=== PATIENT | female | born 2005 | race Caucasian/White ===

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

== ENCOUNTER → 2023-07-12 | Outpatient (CLI) | payer MEDICAID, SELFPAY ==
--- NOTE | 2023-07-12 15:42 | RAD_ITS ---
EXAM: XR LEFT TOES, 2 OR MORE VIEWS CLINICAL INDICATION: left middle toe injury TECHNIQUE: Frontal, lateral and oblique views of the toes of the left foot. COMPARISON: No relevant prior studies available. FINDINGS: BONES/JOINTS: There is a nondisplaced fracture of the proximal third phalanx. No dislocation. SOFT TISSUES: Unremarkable. No radiopaque foreign body. RAD/Toe(s) Min 2 Views IMPRESSION: Fracture of the proximal third phalanx. Electronically Signed: Teodoro Rivero MD at 16:29 EST ,
--- OUTSIDE RECORDS SUMMARY | 2023-07-12 17:40 | XMS RPT_ITS | CCD ---
Author Name Unknown Address [id number] [place] [address] Organization [facility] Care Team Providers Care 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 Name Role Phone (Gian), Wads Unavailable Rory Gaspar MD Unavailable Amparo Jang MD, Rory Primary Care Provider Rory Gaspar Primary Care Provider Jose Patel Unavailable Unavailable Primary Care Provider Unavailabl e Amparo Jang MD, Rory Unavailable Amparo Jang MD, Rory Primary Care Provider Rory Gaspar Primary Care Provider Jose Patel Unavailable (Gian), Wads Unavailable Rory Gaspar MD Unavailable Amparo Jang MD, Rory Primary Care Provider Rory Gaspar Primary Care Provider Jose Patel Unavailable JOSE PETERSON, DR RORY Lowery Primary Care Physician NICHOLAS ATKINS DO Attending Unavailable JOSE PETERSON, DR RORY Lowery Primary Care Hazel shah (Gian), Wads Unavailable Rory Gaspar MD Unavailable Rory Gaspar MD Primary Care Provider AMPARO SUHAIL, RORY Primary Care Unavailable JOSE PATEL Attending Unavailable JOSE PATEL Admitting Unavailable AMPARO SUHAIL, RORY Attending Unavailable AMPARO SUHAIL, RORY Referring Unavailable AMPARO SUHAIL, RORY Primary Care Unavailable AMPARO SUHAIL, RORY Attending Unavailable AMPARO SUHAIL, RORY Referring Unavailable AMPARO SUHAIL, RORY Primary Care Unavailable AMPARO SUHAIL, RORY Primary Care Unavailable AMPARO SUHAIL, RORY Referring Unavailable JESÚS FARRELL Attending Unavailable YIMI PATEL Referring Unavailable AMPARO SUHAIL, RORY Primary Care Unavailable YIMI PATEL Attending Unavailable AMPARO SUHAIL, RORY Primary Care Unavailable AMPARO SUHAIL, RORY Referring Unavailable JOSE PATEL Attending Unavailable AMPARO SUHAIL, RORY Primary Care Unavailable JOSE PATEL Referring Unavailable AMPARO SUHAIL, RORY Primary Care Unavailable FAINA ALVARADO Referring Unavailable FAINA ALVARADO Attending Unavailable AMPARO SUHAIL, RORY Primary Care Unavailable AMPARO SUHAIL, RORY Referring Unavailable FAINA ALVARADO Attending Unavailable AMPARO SUHAIL, RORY Primary Care Unavailable AMPARO SUHAIL, RORY Referring Unavailable JOSE PATEL Attending Unavailable AMPARO SUHAIL, RORY Primary Care Unavailable AMPARO SUHAIL, RORY Referring Unavailable CIRO FARMER Attending Unavailable AMPARO SUHAIL, RORY Primary Care Unavailable AMPARO SUHAIL, RORY Referring Unavailable JOSE PATEL Attending Unavailable REFERRED, SELF Referring Unavailable AMPARO SUHAIL, RORY Attending Unavailable AMPARO SUHAIL, RORY Primary Care Unavailable REFERRED, SELF Referring Unavailable AMPARO SUHAIL, RORY Attending Unavailable AMPARO SUHAIL, RORY Primary Care Unavailable REFERRED, SELF Referring Unavailable AMPARO SUHAIL, RORY Primary Care Unavailable JOSE PATEL Attending Unavailable REFERRED, SELF Referring Unavailable AMPARO SUHAIL, RORY Attending Unavailable AMPARO SUHAIL, RORY Primary Care Unavailable AMPARO SUHAIL, RORY Referring Unavailable AMPARO SUHAIL, RORY Primary Care Unavailable YIMI PATEL Attending Unavailable REFERRED, SELF Referring Unavailable AMPARO SUHAIL, RORY Attending Unavailable AMPARO SUHAIL, RORY Primary Care Unavailable REFERRED, SELF Referring Unavailable AMPARO SUHAIL, RORY Primary Care Unavailable YIMI PATEL Attending Unavailable MARTELL KATZ Attending Unavailable PATSY HERNANDEZ Referring Unavailable AMPARO SUHAIL, RORY Primary Care Unavailable AMPARO SUHAIL, RORY Primary Care Unavailable BRIA AREVALO Attending Unavailable BRIA AREVALO Referring Unavailable AMPARO SUHAIL, RORY Primary Care Unavailable AMPARO SUHAIL, RORY Primary Care Unavailable PATSY HERNANDEZ Attending Unavailable AMPARO SUHAIL, RORY Primary Care Unavailable CIRO FARMER (LACHELLE) (HIST) Referring Unava ilable AMPARO SUHAIL, RORY Primary Care Unavailable CIRO FARMER (PA) (HIST) Referring Unava ilable AMPARO SUHAIL, RORY Primary Care Unavailable AMPARO SUHAIL, RORY Primary Care Unavailable DHRUV PALACIOS Referring Unavailable LUDWIG BRYAN Attending Unavailable AMPARO SUHAIL, RORY Primary Care Unavailable MARY CARTER Attending Unava ilable AMPARO SUHAIL, RORY Primary Care Unavailable LUDWIG BRYAN Attending Unavailable AMPARO SUHAIL, RORY Primary Care Unavailable MARY CARTER Attending Unava ilable AMPARO SUHAIL, RORY Primary Care Unavailable AMPARO SUHAIL, RORY Primary Care Unavailable JAYLENE BAH Attending Unavailable AMPARO SUHAIL, RORY Primary Care Unavailable RACQUEL SCHMIDT Attending Unavailable AMPARO SUHAIL, RORY Primary Care Unavailable NUSRAT CRAMER Attending Unavailable AMPARO SUHAIL, RORY Primary Care Unavailable MARY CARTER Attending Unava ilable MARIOLA FIERRO Attending Unavaila ble AMPARO SUHAIL, RORY Primary Care Unavailable MINA SALGUERO Attending Unavailable AMPARO SUHAIL, RORY Primary Care Unavailable LUDWIG BRYAN Attending Unavailable AMPARO SUHAIL, RORY Primary Care Unavailable VÍCTOR GONZALES Attending Unavailable AMPARO SUHAIL, RORY Primary Care Unavailable Allergies Allergy Classification Reported Allergen(s) Allergy Type Date of Onset Reaction(s) Facility (8 sources) Amoxicillin; Translations: [AMOXICILLIN] Drug Allergy 03-20-2015 [facility] (11 sources) Penicillins; Translations: [PENICILLINS] Drug Allergy 04-19-[address] [facility] (10 sources) Penicillins Drug Allergy 04-19-[address] [facility] (1 source) Penicillin; Translations: [penicillin] Drug Allergy [facility] Medications Current Medications Medication Drug Class(es) Dates Sig (Normalized) Sig (Original) acetaminophen 325 mg oral tablet (6 sources) Start: 12-01-2021 take 2 tablets by mouth every six hours as needed for pain acetaminophen (TYLENOL) 325 MG tablet Take 2 Tablets (650 mg) by mouth every 6 hours as needed for Pain 0 12/01/2021 Active Completed/Discontinued Medications Medication Drug Class(es) Dates Sig (Normalized) Sig (Original) [id number] 200 actuat albuterol 0.09 mg/actuat metered dose inhaler (4 sources) beta2-Adrenergic Agonist Start: 10-22-2020 End: 12-01-2021 take 2 puff(s) by inhalation every four hours as needed for wheezing 2 Puff, Inhalation, EVERY 4 HOURS PRN, Starting on Tue11/30/21 at 1628, Until Tue12/01/21 at 1231, Shortness of Breath, Wheezing calcium chloride 0.001 meq/ml / glucose 50 mg/ml / potassium chloride 0.004 meq/ml / sodium chloride 0.103 meq/ml / sodium lactate 0.028 meq/ml injectable solution (1 source) Start: 11-30-2021 End: 12-01-2021 take 1 mL by mouth every hour CONTINUOUS, Intravenous, at 92 mL/hr, Starting on Tue11/30/21 at 1630, For 90 days Saline lock when tolerating adequate PO intake. calcium chloride 0.0014 meq/ml / potassium chloride 0.004 meq/ml / sodium chloride 0.103 meq/ml / sodium lactate 0.028 meq/ml injectable solution (1 source) Start: 11-30-2021 End: 11-30-2021 CONTINUOUS, Intravenous, at 92 mL/hr, Starting on Tue11/30/21 at 1530, For 90 days, PACU diphenhydrAMINE hydrochloride 25 mg oral capsule (9 sources) Histamine-1 Receptor Antagonist Start: 03-30-2021 take 25-50 mg by mouth every six hours as needed diphenhydrAMINE (BENADRYL) 25 mg capsule Take 1-2 capsules by mouth every 6 hours as needed for itching/rash. 15 capsule 0 03/30/2021 Active Problems Active Problems Problem Classification Problem Date Documented Da te Episodic/Chronic Anxiety disorders (7 sources) Generalized anxiety disorder; Translations: [Generalized anxiety disorder] Onset: 08-19-2020 08-19-2020 Chronic Conditions associated with dizziness or vertigo (1 source) Dizziness and giddiness; Translations: [Dizziness] Onset: 04-02-2023 Episodic Contraceptive and procreative management (2 sources) Oral contraception; Translations: [Encounter for surveillance of contraceptive pills] Episodic Fracture of lower limb (1 source) Nondisplaced fracture of proximal phalanx of left lesser toe(s), initial encounter for closed fracture; Translations: [Closed nondisplaced fracture of proximal phalanx of lesser toe of left foot, initial encounter] Onset: 06-28-2023 Episodic Genitourinary congenital anomalies (12 sources) Kidney disease; Translations: [Congenital malformation of kidney, unspecified] Onset: 04-07-2020 04-07-2020 Chronic Immunizations and screening for infectious disease (1 source) Suspected disease caused by 2019-nCoV; Translations: [Suspected COVID-19 virus infection] 02-09-2023 Episodic Menstrual disorders (1 source) Menstrual period late; Translations: [Irregular menstruation, unspecified] Chronic Miscellaneous mental health disorders (11 sources) Eating disorder; Translations: [Eating disorder, unspecified] Onset: 02-04-2022 Chronic Mood disorders (7 sources) Depressive disorder; Translations: [Major depressive disorder, single episode, unspecified] Onset: 10-22-2020 10-22-2020 Chronic Nonspecific chest pain (1 source) Chest pain, unspecified; Translations: [Chest pain, unspecified type] Onset: 04-02-2023 Episodic Other congenital anomalies (19 sources) Accessory right tarsal navicular bone; Translations: [Other congenital malformations of lower limb(s), including pelvic girdle] Onset: 03-21-2018 07-04-2018 Chronic Other connective tissue disease (1 source) Abnormal posture; Translations: [Abnormal posture] 01-20-2023 Episodic Other female genital disorders (1 source) Hypertrophy of labia; Translations: [Unspecified hypertrophy of vulva] Episodic Other gastrointestinal disorders (1 source) Acute constipation; Translations: [Constipation, unspecified] 04-07-2023 Episodic Other nutritional; endocrine; and metabolic disorders (12 sources) Childhood obesity; Translations: [Obesity, unspecified] Onset: 02-08-2018 05-17-2019 Chronic Syncope (1 source) Near syncope; Translations: [Syncope and collapse] Episodic Unclassified (1 source) Multiple Concerns Onset: 09-14-2022 Unclassified (1 source) Vaginal candidiasis; Translations: [Vaginal candidiasis] Onset: 06-11-2023 Unclassified (1 source) Physical Therapy Onset: 09-08-2022 Viral infection (2 sources) Viral disease; Translations: [Viral infection, unspecified] Onset: 04-14-2023 04-07-2023 Episodic Past or Other Problems Problem Classification Problem Date Documented Da te Episodic/Chronic Abdominal pain (20 sources) Generalized abdominal pain; Translations: [Generalized abdominal pain] Onset: 1 Resolved: 2 Episodic Asthma (7 sources) Exercise-induced asthma; Translations: [Exercise induced bronchospasm] Onset: 8 Resolved: 9 04-10-2019 Chronic Attention-deficit, conduct, and disruptive behavior disorders (7 sources) Disruptive behavior disorder; Translations: [Conduct disorder, unspecified] Onset: 0 Resolved: 8 08-06-2021 Chronic Attention-deficit, conduct, and disruptive behavior disorders (7 sources) Attention deficit hyperactivity disorder; Translations: [Attention-deficit hyperactivity disorder, unspecified type] Onset: 3 Resolved: 9 08-06-2021 Chronic Attention-deficit, conduct, and disruptive behavior disorders (7 sources) Oppositional defiant disorder; Translations: [Oppositional defiant disorder] Onset: 3 Resolved: 8 08-06-2021 Chronic Biliary tract disease (6 sources) Biliary dyskinesia; Translations: [Other specified diseases of gallbladder] Onset: 2 Episodic E Codes: Natural/environment (1 source) Bitten or stung by nonvenomous insect and other nonvenomous arthropods, initial encounter; Translations: [Tick bite of abdominal wall, initial encounter] Onset: 3 Episodic Esophageal disorders (7 sources) Gastroesophageal reflux disease; Translations: [Gastro-esophageal reflux disease without esophagitis] Onset: 1 Resolved: 5 08-13-2014 Chronic Gastritis and duodenitis (1 source) Acute gastritis without bleeding; Translations: [Acute gastritis without hemorrhage, unspecified gastritis type] Onset: 3 Episodic Genitourinary symptoms and ill-defined conditions (8 sources) Microscopic hematuria; Translations: [Other microscopic hematuria] Onset: 3 Resolved: 6 08-06-2021 Episodic Headache; including migraine (1 source) Headache disorder; Translations: [Headache disorder] Onset: 3 Episodic Inflammatory diseases of female pelvic organs (1 source) Acute vaginitis; Translations: [Acute vaginitis] Onset: 3 Episodic Joint disorders and dislocations; trauma-related (11 sources) Dislocation of patellofemoral joint; Translations: [Unspecified dislocation of left patella, initial encounter] Onset: 2 Episodic Malaise and fatigue (3 sources) Malaise and fatigue; Translations: [Other malaise] Onset: 3 02-08-2023 Episodic Nausea and vomiting (10 sources) Nausea and vomiting; Translations: [Nausea with vomiting, unspecified] Onset: 2 Resolved: 2 09-03-2021 Episodic Other congenital anomalies (7 sources) Accessory left tarsal navicular bone; Translations: [Other congenital malformations of lower limb(s), including pelvic girdle] Onset: 6 Resolved: 8 03-21-2018 Chronic Other connective tissue disease (7 sources) Muscle weakness; Translations: [Other symptoms and signs involving the musculoskeletal system] Onset: 3 Episodic Other eye disorders (1 source) Ocular pain, left eye; Translations: [Left eye pain] Onset: 3 Episodic Other gastrointestinal disorders (20 sources) Constipation; Translations: [Constipation, unspecified] Onset: 2 Resolved: 1 08-06-2021 Episodic Other nervous system disorders (7 sources) Abnormal gait; Translations: [Unspecified abnormalities of gait and mobility] Onset: 3 Episodic Other non-traumatic joint disorders (8 sources) Pain in left knee; Translations: [Pain in joint, lower leg] Onset: 3 Episodic Other nutritional; endocrine; and metabolic disorders (8 sources) Weight loss; Translations: [Abnormal weight loss] Onset: 2 Resolved: 2 09-03-2021 Episodic Other nutritional; endocrine; and metabolic disorders (7 sources) Childhood obesity; Translations: [Body mass index (BMI) pediatric, greater than or equal to 95th percentile for age] Onset: 8 Resolved: 2 06-30-2021 Episodic Other screening for suspected conditions (not mental disorders or infectious disease) (1 source) Encounter for test, result negative; Translations: [Negative test] Onset: 3 Episodic Other skin disorders (19 sources) Keratosis pilaris; Translations: [Other specified epidermal thickening] Onset: 9 07-04-2018 Episodic Other skin disorders (1 source) Rash and other nonspecific skin eruption; Translations: [Rash] Onset: 3 Episodic Other upper respiratory infections (4 sources) Acute pharyngitis; Translations: [Acute pharyngitis, unspecified] Onset: 3 Episodic Residual codes; unclassified (7 sources) History of arthroscopy of knee joint; Translations: [Other specified postprocedural states] Onset: 3 Episodic Skin and subcutaneous tissue infections (1 source) Cutaneous abscess of groin; Translations: [Abscess of groin] Onset: 3 Episodic Spondylosis; intervertebral disc disorders; other back problems (7 sources) Lumbosacral spondylosis without myelopathy; Translations: [Spondylosis without myelopathy or radiculopathy, lumbosacral region] Onset: 1 Resolved: 5 08-13-2014 Chronic Sprains and strains (3 sources) Sprain of unspecified ligament of left ankle, initial encounter; Translations: [Sprain of unspecified ligament of unspecified ankle, initial encounter] Onset: 3 Episodic Superficial injury; contusion (2 sources) Insect bite (nonvenomous) of abdominal wall, initial encounter; Translations: [Injury of conjunctiva and corneal abrasion without foreign body, left eye, initial encounter] Onset: 3 Episodic Results Test Name Value Interpretation Reference Range Facil ity Vital Signs Date Time Vital Sign Value Performing Clinician Facility 04-06-2023 16:05-0400 Body height 167.6 cm Martell Katz DO Work Phone: [facility] 04-06-2023 16:05-0400 Body temperature 98.49 [degF] Martell Paulinoan DO Work Phone: [facility] 04-06-2023 16:05-0400 Body weight 72.58 kg Martell Paulinoan DO Work Phone: [facility] 04-06-2023 16:05-0400 Diastolic blood pressure 70 mm[Hg] Martell Paulinoan DO Work Phone: [facility] 04-06-2023 16:05-0400 Heart rate 85 /min Martell Paulinoan DO Work Phone: [facility] 04-06-2023 16:05-0400 Respiratory rate 18 /min Martell Paulinoan DO Work Phone: [facility] 04-06-2023 16:05-0400 SaO2% (BldA) [Mass fraction] 96 % Martell Paulinoan DO Work Phone: [facility] 04-06-2023 16:05-0400 Systolic blood pressure 103 mm[Hg] Martell Paulinoan DO Work Phone: [facility] 02-08-2023 18:26-0400 Body temperature 99.19 [degF] Dhruv Palacios FAMILY CONSUMER SCIENCE FCS TEACHER.AUDITOR SUPERVISOR Work Phone: [facility] 02-08-2023 18:26-0400 Body weight 69.94 kg Dhrvu Palacios FAMILY CONSUMER SCIENCE FCS TEACHER.AUDITOR SUPERVISOR Work Phone: [facility] 02-08-2023 18:26-0400 Diastolic blood pressure 82 mm[Hg] Dhruv Palacios FAMILY CONSUMER SCIENCE FCS TEACHER.AUDITOR SUPERVISOR Work Phone: [facility] 02-08-2023 18:26-0400 Heart rate 102 /min Dhruv Palacios FAMILY CONSUMER SCIENCE FCS TEACHER.AUDITOR SUPERVISOR Work Phone: [facility] 02-08-2023 18:26-0400 Respiratory rate 18 /min Dhruv Palacios FAMILY CONSUMER SCIENCE FCS TEACHER.AUDITOR SUPERVISOR Work Phone: [facility] 02-08-2023 18:26-0400 SaO2% (BldA) [Mass fraction] 98 % Dhruv Palacios FAMILY CONSUMER SCIENCE FCS TEACHER.AUDITOR SUPERVISOR Work Phone: [facility] 02-08-2023 18:26-0400 Systolic blood pressure 128 mm[Hg] Dhruv Palacios FAMILY CONSUMER SCIENCE FCS TEACHER.AUDITOR SUPERVISOR Work Phone: [facility] 10-02-2022 00:54-0400 Body height 167.6 cm NICHOLASPAYAM ATKINS DO [facility] 10-02-2022 00:54-0400 Body temperature 98.24 [degF] NICHOLASPAYAM VASQUEZKA DO [facility] 10-02-2022 00:54-0400 Body weight 59.1 kg NICHOLAS VASQUEZKA DO [facility] 10-02-2022 00:54-0400 Diastolic Blood Pressure Non-Invasive 76 1 NICHOLAS VASQUEZKA DO [facility] 10-02-2022 00:54-0400 Heart rate 60 /min NICHOLAS VASQUEZKA DO [facility] 10-02-2022 00:54-0400 Height ZScore 0.67 NICHOLAS VASQUEZKA DO [facility] Encounters Encounter Date Encounter Type Care Provider Facility Start: 06-28-2023 End: 06-29-2023 Emergency department patient visit LUDWIG BRYAN Facility:[facility] Start: 06-11-2023 End: 06-11-2023 Emergency department patient visit LUDWIG BRYAN Facility:[facility] Start: 04-14-2023 End: 04-14-2023 Emergency department patient visit MINA SALGUERO Facility:[facility] Start: 04-06-2023 End: 04-07-2023 ambulatory MARTELL KATZ Facility:[facility] Start: 04-06-2023 End: 04-07-2023 Office outpatient visit 25 minutes Martell Katz DO Work Phone: [facility] Procedures Date Procedure Procedure Detail Performing Clinician Start: 02-15-2023 End: 02-15-2023 Us abdominal real time w/image documentation Rory Jang MD Work Phone: Start: 02-15-2023 Us pelvic nonobstetr ic real-time image complete Rory Jang MD Work Phone: Start: 02-08-2023 COVID & INFLUENZA A/ B & RSV NAAT, ROUTINE Dhruv Palacios FAMILY CONSUMER SCIENCE FCS TEACHER.AUDITOR SUPERVISOR Work Phone: Start: 02-08-2023 Iadna respiratry pro be & rev trnscr 3-5 targets Dhruv Palacios FAMILY CONSUMER SCIENCE FCS TEACHER.AUDITOR SUPERVISOR Work Phone: Start: 02-08-2023 Sars-cov-2 detection by dna/rna Dhruv Palacios FAMILY CONSUMER SCIENCE FCS TEACHER.AUDITOR SUPERVISOR Work Phone: Start: 11-30-2021 End: 11-30-2021 ENDOSCOPY (UPPER AND COLONOSCOPY) Jose Daniel Escalante DO Work Phone: Start: 11-30-2021 End: 11-30-2021 LAPAROSCOPIC CHOLECYSTECTOMY WITH CHOLANGIOGRAM Murali Aguilar MD Work Phone: Start: 11-22-2021 Basic metabolic pane l calcium total Doc Go MD Work Phone: Start: 11-22-2021 Hepatic function panel Doc Go MD Work Phone: Start: 11-22-2021 Ecg routine ecg w/le ast 12 lds w/i&r Doc Go MD Work Phone: Start: 10-05-2021 Hepatobil syst imag inc gb w/pharma intervenj [facility] Provider Start: 09-22-2021 End: 09-22-2021 Us abdominal real time w/image documentation Lisa Schmid FAMILY CONSUMER SCIENCE FCS TEACHER-AUDITOR SUPERVISOR Work Phone: Plan of Treatment Date Care Activity Detail Author Start: 02-22-2032 Tetanus Diphtheria a nd Pertussis Vaccines (5 - Td or Tdap) Tetanus Diphtheria and Pertussis Vaccines (5 - Td or Tdap) [facility] Start: 02-22-2032 Tetanus Diphtheria a nd Pertussis Vaccines (8 - Td or Tdap) Tetanus Diphtheria and Pertussis Vaccines (8 - Td or Tdap) [facility] Start: 02-22-2032 Urine microalbumin profile [facility] Start: 03-20-2025 DTaP/Tdap/Td vaccine (7 - Td or Tdap) DTaP/Tdap/Td vaccine (7 - Td or Tdap) [facility] Start: 03-20-2025 Tetanus Diphtheria a nd Pertussis Vaccines (7 - Td or Tdap) Tetanus Diphtheria and Pertussis Vaccines (7 - Td or Tdap) [facility] Start: 04-14-2023 Well Visit Well Visit [facility] Start: 02-25-2023 FLU (#1) FLU (#1) [facility] Start: 02-25-2023 Influenza vaccination [facility] Start: 02-08-2023 End: 04-10-2023 Borrelia burgdorferi IgG and IgM panel - Serum LYME AB LATE >30 DAYS SYMPTOMS Lab Routine Malaise and fatigue Expected: 02/08/2023, Expires: 04/10/2023 [facility] Work Phone: Immunizations Immunization Date Immunization Notes Care Provider Sergio cha 03-17-2022 Human Papillomavirus 9-valent vaccine Faina Alvarado MD Work Phone: [facility] 03-17-2022 influenza, injectabl e, quadrivalent, preservative free Faina Alvarado MD Work Phone: [facility] 03-17-2022 influenza virus vacc ine, unspecified formulation Martell Katz DO Work Phone: [facility] 02-21-2022 tetanus toxoid, redu gaston diphtheria toxoid, and acellular pertussis vaccine, adsorbed Kandi Luther MD Work Phone: [facility] 05-16-2021 influenza, injectabl e, quadrivalent, preservative free Lisa Keilin FAMILY CONSUMER SCIENCE FCS TEACHER-AUDITOR SUPERVISOR Work Phone: [facility] 03-25-2021 Human Papillomavirus 9-valent vaccine Lisa Keilin FAMILY CONSUMER SCIENCE FCS TEACHER-AUDITOR SUPERVISOR Work Phone: [facility] 10-22-2020 Human Papillomavirus 9-valent vaccine Lisa Keilin FAMILY CONSUMER SCIENCE FCS TEACHER-AUDITOR SUPERVISOR Work Phone: [facility] 10-22-2020 meningococcal polysaccharide (groups A, C, Y and W-135) diphtheria toxoid conjugate vaccine (MCV4P) Lisa Keilin FAMILY CONSUMER SCIENCE FCS TEACHER-AUDITOR SUPERVISOR Work Phone: [facility] 04-04-2020 influenza, injectabl e, quadrivalent, preservative free Lisa Keilin FAMILY CONSUMER SCIENCE FCS TEACHER-AUDITOR SUPERVISOR Work Phone: [facility] 04-10-2019 influenza, injectabl e, quadrivalent, preservative free Lisa Keilin FAMILY CONSUMER SCIENCE FCS TEACHER-AUDITOR SUPERVISOR Work Phone: [facility] 04-15-2018 influenza, injectabl e, quadrivalent, preservative free Lisa Keilin FAMILY CONSUMER SCIENCE FCS TEACHER-AUDITOR SUPERVISOR Work Phone: [facility] 04-27-2017 influenza, injectabl e, quadrivalent, preservative free Lisa Keilin FAMILY CONSUMER SCIENCE FCS TEACHER-AUDITOR SUPERVISOR Work Phone: [facility] 05-07-2016 influenza, injectabl e, quadrivalent, preservative free Lisa Keilin FAMILY CONSUMER SCIENCE FCS TEACHER-AUDITOR SUPERVISOR Work Phone: [facility] 05-07-2016 influenza, injectable,quadrivalent, preservative free, pediatric Lisa Keilin FAMILY CONSUMER SCIENCE FCS TEACHER-AUDITOR SUPERVISOR Work Phone: [facility] 03-20-2015 influenza, injectabl e, quadrivalent, preservative free Lisa Keilin FAMILY CONSUMER SCIENCE FCS TEACHER-AUDITOR SUPERVISOR Work Phone: [facility] [facility] 03-20-2015 influenza, seasonal, injectable Lisa Keilin FAMILY CONSUMER SCIENCE [employer] TEACHER-[facility] Work Phone: [facility] 03-20-2015 meningococcal polysaccharide (groups A, C, Y and W-135) diphtheria toxoid conjugate vaccine (MCV4P) Lisa Schmid FAMILY CONSUMER SCIENCE FCS TEACHER-[facility] Work Phone: [facility] 03-20-2015 tetanus toxoid, redu gaston diphtheria toxoid, and acellular pertussis vaccine, adsorbed [facility] Work Phone: [facility] 05-09-2014 influenza, injectabl e, quadrivalent, preservative free [facility] Work Phone: [facility] 05-09-2014 influenza, seasonal, injectable [facility] Work Phone: [facility] 05-12-2013 influenza, injectabl e, quadrivalent, preservative free [facility] Work Phone: [facility] 04-27-2012 influenza virus vacc ine, split virus (incl. purified surface antigen) [facility] Work Phone: [facility] 04-27-2012 influenza, seasonal, injectable, preservative free [facility] FAMILY CONSUMER SCIENCE FCS TEACHER-[facility] Work Phone: [facility] 04-14-2011 influenza virus vacc ine, split virus (incl. purified surface antigen) [facility] Work Phone: [facility] 04-14-2011 influenza, seasonal, injectable, preservative free [facility] Work Phone: [facility] 05-12-2010 influenza virus vacc ine, split virus (incl. purified surface antigen) [facility] Work Phone: [facility] 05-12-2010 influenza, seasonal, injectable, preservative free [facility] Work Phone: [facility] 08-25-2009 novel influenza-H1N1 -09, preservative-free, injectable Lisa Schmid FAMILY CONSUMER SCIENCE FCS TEACHER-AUDITOR SUPERVISOR Work Phone: [facility] 06-17-2009 novel influenza-H1N1 -09, preservative-free, injectable Lisa Binu FAMILY CONSUMER SCIENCE FCS TEACHER-AUDITOR SUPERVISOR Work Phone: [facility] 03-24-2009 influenza, seasonal, injectable, preservative free Lisa Schmid FAMILY CONSUMER SCIENCE FCS TEACHER-AUDITOR SUPERVISOR Work Phone: [facility] 08-27-2008 diphtheria, tetanus toxoids and acellular pertussis vaccine Lisa Pericoilin FAMILY CONSUMER SCIENCE FCS TEACHER-AUDITOR SUPERVISOR Work Phone: [facility] 08-27-2008 diphtheria, tetanus toxoids and acellular pertussis vaccine, unspecified formulation Lisa Binu FAMILY CONSUMER SCIENCE FCS TEACHER-AUDITOR SUPERVISOR Work Phone: [facility] 08-27-2008 measles, mumps and rubella virus vaccine Lisa Pericoilin FAMILY CONSUMER SCIENCE FCS TEACHER-AUDITOR SUPERVISOR Work Phone: [facility] 08-27-2008 poliovirus vaccine, inactivated Lisa Schmid FAMILY CONSUMER SCIENCE FCS TEACHER-AUDITOR SUPERVISOR Work Phone: [facility] 08-27-2008 varicella virus vaccine Lisa Binu FAMILY CONSUMER SCIENCE FCS TEACHER-AUDITOR SUPERVISOR Work Phone: [facility] 05-14-2008 influenza virus vacc ine, unspecified formulation Lisa Schmid FAMILY CONSUMER SCIENCE FCS TEACHER-AUDITOR SUPERVISOR Work Phone: [facility] 05-14-2008 influenza virus vacc ine, whole virus Lisa Pericoilin FAMILY CONSUMER SCIENCE FCS TEACHER-AUDITOR SUPERVISOR Work Phone: [facility] 04-20-2007 influenza virus vacc ine, whole virus Lisa Pericoilin FAMILY CONSUMER SCIENCE FCS TEACHER-AUDITOR SUPERVISOR Work Phone: [facility] 04-03-2007 hepatitis A vaccine, pediatric/adolescent dosage, 2 dose schedule Lisa Pericoilin FAMILY CONSUMER SCIENCE FCS TEACHER-AUDITOR SUPERVISOR Work Phone: [facility] 09-21-2006 hepatitis A vaccine, pediatric/adolescent dosage, 2 dose schedule Lisa Pericoilin FAMILY CONSUMER SCIENCE FCS TEACHER-AUDITOR SUPERVISOR Work Phone: [facility] 05-07-2005 influenza virus vacc ine, unspecified formulation Lisa Schmid [facility] Work Phone: [facility] 05-07-2005 influenza virus vacc ine, whole virus Lisa marietta [facility] Work Phone: [facility] 12-08-2004 diphtheria, tetanus toxoids and acellular pertussis vaccine Lisa Schmid [facility] Work Phone: [facility] 12-08-2004 diphtheria, tetanus toxoids and acellular pertussis vaccine, unspecified formulation [facility] Work Phone: [facility] 12-08-2004 haemophilus influenz ae type b vaccine, PRP-T conjugate [facility] Work Phone: [facility] 12-08-2004 pneumococcal conjuga te vaccine, 7 valent [facility] 10-07-2004 measles, mumps and rubella virus vaccine Lisamolly Schmid [facility] Work Phone: [facility] 10-07-2004 varicella virus vaccine Lisa Schmid [facility] Work Phone: [facility] 06-22-2004 influenza virus vacc ine, unspecified formulation [facility] Work [facility]: [facility] 06-22-2004 influenza virus vacc ine, whole virus [facility] Work Phone: [facility] 06-22-2004 poliovirus vaccine, inactivated [facility] Work Phone: [facility] 04-16-2004 influenza virus vacc ine, unspecified formulation [facility] Work Phone: [facility] 04-16-2004 influenza virus vacc ine, whole virus [facility] Work [facility]: [facility] 03-18-2004 diphtheria, tetanus toxoids and acellular pertussis vaccine Lisa Schmid [facility] Work Phone: [facility] 03-18-2004 haemophilus influenz ae type b conjugate and Hepatitis B vaccine [facility] Work Phone: [facility] 03-18-2004 pneumococcal conjuga te vaccine, 7 valent [facility] Work Phone: [facility] 01-20-2004 diphtheria, tetanus toxoids and acellular pertussis vaccine Lisa [facility] Work Phone: [facility] 01-20-2004 diphtheria, tetanus toxoids and acellular pertussis vaccine, unspecified formulation [facility] Work Phone: [facility] 01-20-2004 haemophilus influenz ae type b conjugate and Hepatitis B vaccine [facility] Work Phone: [facility] 01-20-2004 haemophilus influenz ae type b vaccine, conjugate unspecified formulation [facility] Work Phone: [facility] 01-20-2004 hepatitis B vaccine, pediatric or pediatric/adolescent dosage [facility] Work [facility]: [facility] 01-20-2004 pneumococcal conjuga te vaccine, 7 valent Lisa [facility] Work Phone: [facility] 01-20-2004 poliovirus vaccine, inactivated [facility] Work Phone: [facility] 01-20-2004 poliovirus vaccine, unspecified formulation [facility] Work Phone: [facility] 2003 diphtheria, tetanus toxoids and acellular pertussis vaccine [facility] Work Phone: [facility] 2003 diphtheria, tetanus toxoids and acellular pertussis vaccine, unspecified formulation Lisa Schmid [employer]ILY CONSUMER SCIENCE [employer] TEACHER-[facility] Work Phone: [facility] 2003 haemophilus influenz ae type b vaccine, conjugate unspecified formulation Lisa Schmid FAMILY CONSUMER SCIENCE FCS TEACHERBringShare[facility] Work Phone: [facility] 2003 haemophilus influenz ae type b vaccine, PRP-T conjugate Lisa Schmid [employer]ILY CONSUMER SCIENCE FCS TEACHERBring[facility] Work Phone: [facility] 2003 hepatitis B vaccine, pediatric or pediatric/adolescent dosage Lisa Schmid FAMILY CONSUMER SCIENCE FCS TEACH[facility] Work Phone: [facility] 2003 pneumococcal conjuga te vaccine, 7 valent Lisa Schmid FAMILY CONSUMER SCIENCE FCS TEACH[facility] Work Phone: [facility] 2003 poliovirus vaccine, inactivated Lisa Schmid FAMILY CONSUMER SCIENCE FCS TEACHERBringShare[facility] Work Phone: [facility] 2003 poliovirus vaccine, unspecified formulation Lisa Schmid [facility] Work Phone: [facility] Payers Date Payer Category Payer Unknown [id number] 2014 Medicaid [facility] [id number] 2014-Present [phone] [address] [place] [address] Medicaid [id number] 2014 Medicaid [id number] 2014 Unknown [id number] 2013 Unknown [id number]. [id number] 2003 Unknown [id number] [id number] 2003 Unknown [id number] [id number] 2003 Unknown [id number] [id number] 2003 Unknown [id number] 2.16.840.1.195571.3.579.2479 2003 Unknown [id number] [id number] 2003 Unknown [id number] [id number] 2003 Unknown [id number] 2.16.840.1.012974.3.579.247 2003 Unknown [id number] 2.16.840.1.488009.3.579.247 2003 Unknown [id number] [id number] 2003 Unknown [id number] 2.16.840.1.587975.3.579.247 2003 Unknown [id number] 2.16.840.1.664159.3.579.247 2003 Unknown [id number] 2.16.840.1.448284.3.579.247 2003 Unknown [id number] 2.16.840.1.164653.3.579.247 2003 Unknown [id number] 2.16.840.1.523332.3.579.247 2003 Unknown [id number] 2.16.840.1.140578.3.579.247 2003 Unknown [id number] 2.16.840.1.912723.3.579.2479 2003 Unknown [id number] [id number] 2003 Unknown [id number] [id number] 2003 Unknown [id number] [id number] 2003 Unknown [id number] [id number] 2003 Unknown [id number] [id number] Social History Date Type Detail Facility Start: 04-10-2019 End: 02-04-2022 Tobacco smoking status NHIS Never smoked tobacco [facility] Start: 04-10-2019 End: 02-04-2022 Tobacco use and exposure Smokeless tobacco non-user [facility] Start: 08-08-2012 End: 03-17-2022 Tobacco Comment outside smokers [facility] Start: 2003 Sex Assigned At Not on file A [facility] Start: 09-12-2021 End: 05-17-2022 Exposure to SARS-CoV-2 (event) Not sure [facility] Start: 09-02-2021 End: 04-06-2023 Alcohol intake Current non-drinker of alcohol (finding) [facility] Start: 11-23-2021 Alcohol intake Lifetime non-d viktoria (finding) [facility] Work Phone: Start: 11-22-2021 History SDOH Alcohol Frequency 1 [facility] Work Phone: Start: 04-10-2019 End: 11-13-2022 Cigarette pack-years [facility] Work Phone: Sex Assigned At Female [facility] Start: 11-13-2022 End: 01-10-2023 Tobacco use panel [facility] Work Phone: National Score (1-10 0), lower number is lower risk 50 [facility] Work Phone: Medical Equipment Procedure Code Equipment Code Equipment Origin al Text Equipment Identifier Dates [facility] Suturet[facility] [id number] Start: 04-13-2016 [facility] [employer] [id number] Start: 03-28-2018 Debbie salvador Frzn 20cm [id number] Start: 06-08-2022 Arth Mpfl Tightr ope [facility] [id number] Start: 06-08-2022 Goals Date Patient Goal Desired Activity /State Personal health goal Functional Status Date Assessment Result Facility 10-02-2022 Functional Status Ambulating in cervantes, Ambulating in room, Awake, Bathroom privileges [facility] 10-02-2022 Functional Status Standard Safet y ID band on, Allergy Band on, Call device within reach, Bed in low position, Wheels locked, Upper/Half-Length side-rails up, personal items within reach, Visitor at bedside [facility] Mental Status Date Assessment Result Facility 10-02-2022 Mental Status Orientation Oriented x 4 [facility] 10-02-2022 Mental Status [facility] Clinical Notes 10-05-2021 to 04-09-2023 Martell Katz, - 04/06/2023 4:25 PM EDTPatient Dhruv Brice APRN.AUDITOR SUPERVISOR - 02/08/2023 6:31 PM EDTTelephone Encounter - Bria Arevalo APRN.AUDITOR SUPERVISOR - 11/23/2022 5:23 PM EDT Note Date & Type Note Facility 04-09-2023 Note HNO ID: [id number] Author: Note, Interface Service: ? Author Type: ? Type: Progress Notes Filed: 04/09/2023 5:29 AM Note Text: Epic Scheduled Downtime: 04/09/2023 1:00:00 AM to 04/09/2023 1:28:00 AM [facility] 04-09-2023 Note HNO ID: [id number] Author: Note, Interface Service: ? Author Type: ? Type: Progress Notes Filed: 04/09/2023 2:58 AM Note Text: Epic Scheduled Downtime: 04/09/2023 1:00:00 AM to 04/09/2023 1:28:00 AM [facility] 04-06-2023 Note HNO ID: [id number] Author: Martell Katz, DO Service: ? Author Type: Physician Type: Progress Notes Filed: 04/07/2023 11:20 AM Note Text: 17 year old female presenting for multiple symptoms I have fully reviewed the past medical, surgical, social and family history and updated the Histories section of [facility]. Sore throat headache rhinorrhea sneezing constipation couple days abdominal discomfort cough no fever has been occurring for approximately 1 to 2 weeks, has been in the emergency department numerous times for this. Viral testing neg in ED Multiple symptoms Uri symptoms Constipation Current Outpatient Medications on File Prior to Visit: Current Outpatient Medications Medication Sig Dispense Refill norgestimate 0.25 mg-ethinyl estradiol 35 mcg (MONO-LINYAH) 0.25-35 mg-mcg per tablet TAKE 1 TABLET BY MOUTH ONCE DAILY FOR CONTINUOUS USE * SKIP PLACEBO PILLS FOR FOUR PACKS, TAKING ONLY ACTIVE PILLS 28 tablet 0 norgestimate 0.25 mg-ethinyl estradiol 35 mcg (MONO-LINYAH) 0.25-35 mg-mcg per tablet TAKE 1 TABLET BY MOUTH ONCE DAILY FOR CONTINUOUS USE * SKIP PLACEBO PILLS FOR FOUR PACKS, TAKING ONLY ACTIVE PILLS 84 tablet 3 ondansetron orally disintegrating (ZOFRAN ODT) 4 mg disintegrating tablet Take 4 mg by mouth every 8 hours as needed. venlafaxine (EFFEXOR) 37.5 mg tablet Take 37.5 mg by mouth every other day. No current facility-administered medications for this visit. ALLERGIES Allergen Reactions Penicillins Hives, Swelling PAST SURGICAL HISTORY Procedure Laterality Date ADENOIDECTOMY HX CHOLECYSTECTOMY HX LAPAROSCOPY SURG CHOLECYSTECTOMY 11/30/2021 ORTHOPEDIC SURGERY HX Left foot TONSILLECTOMY HX Social history reviewed in [facility]. REVIEW OF SYSTEMS: Per hpi PHYSICAL EXAMINATION: General appearance: Well appearing, alert, in no acute distress, well-hydrated, well nourished. Skin: no suspicious rashes or lesions Head: Normocephalic, atraumatic Eyes: Anicteric sclera. Pupils are equally round and reactive to light. Extraocular movements are intact. Ears: External ears normal, canals clear Nose/Sinuses: Nares normal, septum midline, mucosa normal, Oropharynx: Lips, mucosa, and tongue normal, good dentition, no pharyngeal erythema or exudates Neck: Supple, no adenopathy Lungs: Lungs clear to auscultation. No wheezing, rhonchi, rales. Heart: RRR without murmur, gallop, or rubs. Abdomen: Normal abdominal exam, Abdomen soft, non-tender. No masses Extremities: No deformities, no edema, no cyanosis. Musculoskeletal: No joint swelling, no deformity Neuro: Gait normal. Speech intact ASSESSMENT/PLAN: 1. Acute constipation - ICD9: 564.00, ICD10: K59.00 (primary diagnosis) Can trial miralax Follow up if persists 2. Viral syndrome - ICD9: 079.99, ICD10: B34.9 - Discussed viral etiology and rationale for treatment. - Symptomatic treatment with prn analgesia - Supportive care with fluids and rest Normal exam Discussed with patient red flag symptoms. Discussed risks and benefits of treatment plan. Pt understands to seek appropriate evaluation for new or worsening symptoms. Patient understands and agrees with plan, all concerns and questions addressed. [facility] 04-06-2023 History of Presen t illness Narrative 17 year old female presenting for multiple symptoms I have fully reviewed the past medical, surgical, social and family history and [facility] Sore throat headache rhinorrhea sneezing constipation couple days abdominal discomfort cough no fever has been occurring for approximately 1 to 2 weeks, has been in the emergency department numerous times for this. Viral testing neg in ED Multiple symptoms Uri symptoms Constipation Current Outpatient Medications on File Prior to Visit: Current Outpatient Medications Medication Sig Dispense Refill norgestimate 0.25 mg-ethinyl estradiol 35 mcg (MONO-LINYAH) 0.25-35 mg-mcg per tablet TAKE 1 TABLET BY MOUTH ONCE DAILY FOR CONTINUOUS USE * SKIP PLACEBO PILLS FOR FOUR PACKS, TAKING ONLY ACTIVE PILLS 28 tablet 0 norgestimate 0.25 mg-ethinyl estradiol 35 mcg (MONO-LINYAH) 0.25-35 mg-mcg per tablet TAKE 1 TABLET BY MOUTH ONCE DAILY FOR CONTINUOUS USE * SKIP PLACEBO PILLS FOR FOUR PACKS, TAKING ONLY ACTIVE PILLS 84 tablet 3 ondansetron orally disintegrating (ZOFRAN ODT) 4 mg disintegrating tablet Take 4 mg by mouth every 8 hours as needed. venlafaxine (EFFEXOR) 37.5 mg tablet Take 37.5 mg by mouth every other day. No current facility-administered medications for this visit. ALLERGIES Allergen Reactions Penicillins Hives, Swelling PAST SURGICAL HISTORY Procedure Laterality Date ADENOIDECTOMY HX CHOLECYSTECTOMY HX LAPAROSCOPY SURG CHOLECYSTECTOMY 11/30/2021 ORTHOPEDIC SURGERY HX Left foot TONSILLECTOMY HX Social history reviewed in epic. REVIEW OF SYSTEMS: Per hpi PHYSICAL EXAMINATION: General appearance: Well appearing, alert, in no acute distress, well-hydrated, well nourished. Skin: no suspicious rashes or lesions Head: Normocephalic, atraumatic Eyes: Anicteric sclera. Pupils are equally round and reactive to light. Extraocular movements are intact. Ears: External ears normal, canals clear Nose/Sinuses: Nares normal, septum midline, mucosa normal, Oropharynx: Lips, mucosa, and tongue normal, good dentition, no pharyngeal erythema or exudates Neck: Supple, no adenopathy Lungs: Lungs clear to auscultation. No wheezing, rhonchi, rales. Heart: RRR without murmur, gallop, or rubs. Abdomen: Normal abdominal exam, Abdomen soft, non-tender. No masses Extremities: No deformities, no edema, no cyanosis. Musculoskeletal: No joint swelling, no deformity Neuro: Gait normal. Speech intact ASSESSMENT/PLAN: 1. Acute constipation - ICD9: 564.00, ICD10: K59.00 (primary diagnosis) Can trial miralax Follow up if persists 2. Viral syndrome - ICD9: 079.99, ICD10: B34.9 - Discussed viral etiology and rationale for treatment. - Symptomatic treatment with prn analgesia - Supportive care with fluids and rest Normal exam Discussed with patient red flag symptoms. Discussed risks and benefits of treatment plan. Pt understands to seek appropriate evaluation for new or worsening symptoms. Patient understands and agrees with plan, all concerns and questions addressed. documented in this encounter [facility] 03-13-2023 Note HNO ID: [id number] Author: Note, Interface Service: ? Author Type: ? Type: Progress Notes Filed: 03/13/2023 3:08 AM Note Text: [facility] Scheduled Downtime: 03/13/2023 1:02:01 AM to 03/13/2023 2:21:01 AM [facility] 03-12-2023 Note HNO ID: [id number] Author: Note, Interface Service: ? Author Type: ? Type: Progress Notes Filed: 03/12/2023 5:01 AM Note Text: Epic Scheduled Downtime: 03/12/2023 1:00:00 AM to 03/12/2023 4:45:00 AM [facility] 02-15-2023 Note CLINICAL HISTORY: Lilly prapubic pain, history of cholecystectomy. TECHNIQUE: Sonographic evaluation of the abdomen was performed. COMPARISON: CT abdomen pelvis 09/02/2021 Ultrasound abdomen 09/22/2021 FINDINGS: LIVER: Enlarged. No focal lesion or obviously abnormal parenchymal echotexture. Liver length: 17 cm. (Radiologist measurement 10:49:27) GALLBLADDER: Status post cholecystectomy. CBD: Normal. CBD diameter: 4.9 mm. PANCREAS: Visualized portions appear normal. KIDNEYS: Normal. Right kidney length: 10.8 cm. Left kidney length: 10.8 cm. SPLEEN: Normal. 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 Spleen length: 11.7 cm. AORTA / IVC: Visualized portions are patent. URINARY BLADDER: Nondistended at the time of imaging. IMPRESSION: 1. Hepatomegaly. 2. Status post cholecystectomy. Created by resident and approved This report has been created using voice recognition software Signed by: Dr. Yaya Sanabria at 02/15/2023 13:29 [facility] 02-15-2023 Note IMPRESSION: 1. Normal ultrasound and doppler evaluation of the uterus and adnexa. 2. Ovary sizes are near the upper end of the normal range, but not significantly asymmetric. Numerous follicles seen throughout both ovaries. Created by resident and approved This report has been created using voice recognition software [facility] 02-15-2023 Note IMPRESSION: 1. Normal ultrasound and doppler evaluation of the uterus and adnexa. 2. Ovary sizes are near the upper end of the normal range, but not significantly asymmetric. Numerous follicles seen throughout both ovaries. Created by resident and approved This report has been created using voice recognition software [facility] 02-08-2023 Note HNO ID: [id number] Author: Dhruv Palacios APRN.AUDITOR SUPERVISOR Service: ? Author Type: Nurse Practitioner Type: Progress Notes Filed: 02/09/2023 7:11 AM Note Text: Subjective HPI Nontoxic-appearing female presents urgent care chief complaint body aches chills fatigue headache. Duration of symptoms transient over the last few weeks. Worsened last 24 hours. Presents today for evaluation. Today patient has fatigue body aches chills headache sore throat cough. Last week patient did have a rash on the left side of her glute and in between her legs. States rash has disappeared since then. Has not used any OTC medications. No known sick contacts. Patient states she was bit by a tick in November of this year. Was removed in ED and placed on doxycycline. Denies any high fevers productive cough chest pain shortness of breath pleuritic pain hemoptysis nausea vomiting abdominal pain or change in bowel or bladder habits. Past medical history prescription medication use allergies reviewed. .Patient presents with: bodyaches: Bodyaches, fatigue and ALCALA x 1 day PAST MEDICAL HISTORY Diagnosis Date Concussion Constipation Insomnia Psychiatric disorder PAST SURGICAL HISTORY Procedure Laterality Date ADENOIDECTOMY HX CHOLECYSTECTOMY HX LAPAROSCOPY SURG CHOLECYSTECTOMY 11/30/2021 ORTHOPEDIC SURGERY HX Left foot TONSILLECTOMY HX ALLERGIES Penicillins MEDICATIONS ondansetron (ZOFRAN) 4 mg tablet Take 4 mg by mouth every 8 hours as needed for nausea/vomiting. norgestimate 0.25 mg-ethinyl estradiol 35 mcg (MONO-LINYAH) 0.25-35 mg-mcg per tablet TAKE 1 TABLET BY MOUTH ONCE DAILY FOR CONTINUOUS USE * SKIP PLACEBO PILLS FOR FOUR PACKS, TAKING ONLY ACTIVE PILLS venlafaxine (EFFEXOR) 37.5 mg tablet Take 75 mg by mouth once daily. norgestimate 0.25 mg-ethinyl estradiol 35 mcg (MONO-LINYAH) 0.25-35 mg-mcg per tablet TAKE 1 TABLET BY MOUTH ONCE DAILY FOR CONTINUOUS USE * SKIP PLACEBO PILLS FOR FOUR PACKS, TAKING ONLY ACTIVE PILLS doxycycline hyclate (VIBRAMYCIN) 100 mg capsule Take 1 capsule by mouth every 12 hours 6am/6pm. (Patient not taking: Reported on 02/08/2023) FAMILY HISTORY Problem Relation Age of Onset Hypertension Mother Cervical Cancer Maternal Grandmother 40 Social History Tobacco Use Smoking status: Never Smokeless tobacco: Never Vaping Use Vaping Use: Never used Substance Use Topics Alcohol use: No Drug use: No BP 128/82 Pulse 102 Temp 37.3 ?C (99.2 ?F) (Tympanic) Resp 18 Wt 69.9 kg (154 lb 3.2 oz) LMP 12/31/2022 (Exact Date) SpO2 98% BMI 24.89 kg/m? Review of Systems Constitutional: Positive for chills, fever and malaise/fatigue. HENT: Positive for congestion and sore throat. Negative for ear discharge, ear pain and sinus pain. Eyes: Negative for blurred vision, pain, discharge and redness. Respiratory: Positive for cough. Negative for hemoptysis, sputum production, shortness of breath, wheezing and stridor. Cardiovascular: Negative for chest pain. Gastrointestinal: Negative for abdominal pain, diarrhea, nausea and vomiting. Musculoskeletal: Positive for myalgias. Skin: Positive for rash. Negative for itching. Neurological: Positive for headaches. Negative for dizziness. Objective Physical Exam Constitutional: General: She is not in acute distress. Appearance: She is not toxic-appearing. HENT: Head: Normocephalic. Right Ear: Ear canal normal. Nose: Congestion present. Mouth/Throat: Mouth: Mucous membranes are moist. Pharynx: Oropharynx is clear. No oropharyngeal exudate or posterior oropharyngeal erythema. Eyes: Pupils: Pupils are equal, round, and reactive to light. Cardiovascular: Rate and Rhythm: Normal rate. Pulmonary: Effort: Pulmonary effort is normal. No respiratory distress. Breath sounds: No wheezing, rhonchi or rales. Musculoskeletal: Cervical back: Normal range of motion. Lymphadenopathy: Cervical: No cervical adenopathy. Skin: General: Skin is warm and dry. Findings: No rash. Neurological: General: No focal deficit present. Mental Status: She is alert. ASSESSMENT/PLAN: 1. Suspected COVID-19 virus infection - ICD9: V01.79, ICD10: Z20.822 (primary diagnosis) - COVID AND INFLUENZA A/B AND RSV NAAT, ROUTINE 2. Malaise and fatigue - ICD9: 780.79, ICD10: R53.81, R53.83 - LYME AB LATE >30 DAYS SYMPTOMS With patient's tick bite and flulike symptoms will check for Lyme disease. Patient will return tomorrow for lab test. No antibiotics started at today's visit. Additionally will test for COVID-19 with flulike symptoms. Patient was educated on supportive therapies. Patient will follow up with primary care provider as needed. Patient was instructed to immediately proceed to emergency room for any new, worsening, or symptoms lasting longer than anticipated. The patient's clinical presentation is otherwise unremarkable at this time. Based on exam and clinical finding, the patient is (more content not included)... [facility] 02-08-2023 Instructions Dhruv Palacios APRN.AUDITOR SUPERVISOR - 02/08/2023 6:44 PM EDT How to Manage Common Symptoms Associated with COVID for Adults Fever- Fever is a temperature over 100.4 F and can occur when the body is fighting an infection. To help treat a fever: Drink plenty of fluids and stay well hydrated. Eat small amounts of easy to digest food. Rest. Your body needs rest to recover, but getting up and moving around the house frequently is a good idea. You should try to continue doing your normal daily activities (bathing, toileting, grooming, cooking), though you will probably feel tired, and need to rest often. Avoid any heavy activity or exercise, as this will increase your body temperature. Dress in light clothing and stay covered in a light sheet. Keep the room temperature cool. Take a slightly warm (not cold or cool) bath, or apply damp washcloths to the forehead and wrists. Cough- Cough is a common symptom associated with COVID and can be bothersome. To help treat a cough: Stay well hydrated. Try warm water or tea with lemon and/or honey to help soothe the cough. Use a humidifier to add moisture to the air. Try a product with menthol, like a cough drop or a rub for your chest such as Vicks, which can help reduce cough. Try cough drops. Avoid smoking and other strong odors or perfumes. Try breathing exercises to keep your lungs open and clear. Take a big deep breath through your nose and hold for 5 seconds before slowly releasing. Repeat frequently, while you are awake. Congestion- Runny nose or nasal congestion can occur with COVID. Treatment can help relieve symptoms: Try OTC nasal saline spray, or nasal saline rinse to relieve mucus congestion. Nasal strips can help keep nasal passages open, to increase airflow. Elevating your head with an extra pillow in bed can help reduce congestion. Using a humidifier can increase moisture in the air, and make breathing easier. Sore Throat- Another common symptom with COVID, can be managed at home by: Stay well hydrated. Gargle with salt water - mix teaspoon salt with 1 cup of warm water and gargle. This helps to loosen mucus in the back of the throat and may reduce discomfort. Try ice chips, popsicles or lozenges to soothe the throat. Nausea/Vomiting/Diarrhea- These are common symptoms, and staying hydrated is most important. If you are nauseous or vomiting, start with small sips of water every 10-15 minutes and increase as tolerated. You can try sucking an ice cube too. If tolerating, you can try pedialyte or Gatorade, or flat sprite or holly-lizbet. Start slowly and increase as you are able to. Instead of meals, try smaller, more frequent snacks. Try eating bland foods like crackers, toast, rice, and applesauce. Avoid spicy, greasy or fried foods and dairy containing foods. Even if you aren't feeling hungry due to lack of smell or taste, it is important to try to take in some food when you are able. After drinking and eating, rest in an upright position for up to two hours as needed to help decrease nauseous feelings. Try closing your eyes, avoid moving and watching TV. Avoid strong odors that can make you feel more nauseated. When to seek emergency medical attention Look for emergency warning signs for COVID-19. If having any of these symptoms, seek emergency medical care immediately: Trouble breathing Persistent pain or pressure in the chest New confusion Inability to wake or stay awake Bluish lips or face *This list is not all possible symptoms. Please call your medical provider for any other symptoms that are severe or concerning to you. documented in this encounter [facility] 02-08-2023 History of Presen t illness Narrative Subjective HPI Nontoxic-appearing female presents urgent care chief complaint body aches chills fatigue headache. Duration of symptoms transient over the last few weeks. Worsened last 24 hours. Presents today for evaluation. Today patient has fatigue body aches chills headache sore throat cough. Last week patient did have a rash on the left side of her glute and in between her legs. States rash has disappeared since then. Has not used any OTC medications. No known sick contacts. Patient states she was bit by a tick in November of this year. Was removed in ED and placed on doxycycline. Denies any high fevers productive cough chest pain shortness of breath pleuritic pain hemoptysis nausea vomiting abdominal pain or change in bowel or bladder habits. Past medical history prescription medication use allergies reviewed. .Patient presents with: bodyaches: Bodyaches, fatigue and ALCALA x 1 day PAST MEDICAL HISTORY Diagnosis Date Concussion Constipation Insomnia Psychiatric disorder PAST SURGICAL HISTORY Procedure Laterality Date ADENOIDECTOMY HX CHOLECYSTECTOMY HX LAPAROSCOPY SURG CHOLECYSTECTOMY 11/30/2021 ORTHOPEDIC SURGERY HX Left foot TONSILLECTOMY HX ALLERGIES Penicillins MEDICATIONS ondansetron (ZOFRAN) 4 mg tablet Take 4 mg by mouth every 8 hours as needed for nausea/vomiting. norgestimate 0.25 mg-ethinyl estradiol 35 mcg (MONO-LINYAH) 0.25-35 mg-mcg per tablet TAKE 1 TABLET BY MOUTH ONCE DAILY FOR CONTINUOUS USE * SKIP PLACEBO PILLS FOR FOUR PACKS, TAKING ONLY ACTIVE PILLS venlafaxine (EFFEXOR) 37.5 mg tablet Take 75 mg by mouth once daily. norgestimate 0.25 mg-ethinyl estradiol 35 mcg (MONO-LINYAH) 0.25-35 mg-mcg per tablet TAKE 1 TABLET BY MOUTH ONCE DAILY FOR CONTINUOUS USE * SKIP PLACEBO PILLS FOR FOUR PACKS, TAKING ONLY ACTIVE PILLS doxycycline hyclate (VIBRAMYCIN) 100 mg capsule Take 1 capsule by mouth every 12 hours 6am/6pm. (Patient not taking: Reported on 02/08/2023) FAMILY HISTORY Problem Relation Age of Onset Hypertension Mother Cervical Cancer Maternal Grandmother 40 Social History Tobacco Use Smoking status: Never Smokeless tobacco: Never Vaping Use Vaping Use: Never used Substance Use Topics Alcohol use: No Drug use: No BP 128/82 Pulse 102 Temp 37.3 C (99.2 F) (Tympanic) Resp 18 Wt 69.9 kg (154 lb 3.2 oz) LMP 12/31/2022 (Exact Date) SpO2 98% BMI 24.89 kg/m Review of Systems Constitutional: Positive for chills, fever and malaise/fatigue. HENT: Positive for congestion and sore throat. Negative for ear discharge, ear pain and sinus pain. Eyes: Negative for blurred vision, pain, discharge and redness. Respiratory: Positive for cough. Negative for hemoptysis, sputum production, shortness of breath, wheezing and stridor. Cardiovascular: Negative for chest pain. Gastrointestinal: Negative for abdominal pain, diarrhea, nausea and vomiting. Musculoskeletal: Positive for myalgias. Skin: Positive for rash. Negative for itching. Neurological: Positive for headaches. Negative for dizziness. Objective Physical Exam Constitutional: General: She is not in acute distress. Appearance: She is not toxic-appearing. HENT: Head: Normocephalic. Right Ear: Ear canal normal. Nose: Congestion present. Mouth/Throat: Mouth: Mucous membranes are moist. Pharynx: Oropharynx is clear. No oropharyngeal exudate or posterior oropharyngeal erythema. Eyes: Pupils: Pupils are equal, round, and reactive to light. Cardiovascular: Rate and Rhythm: Normal rate. Pulmonary: Effort: Pulmonary effort is normal. No respiratory distress. Breath sounds: No wheezing, rhonchi or rales. Musculoskeletal: Cervical back: Normal range of motion. Lymphadenopathy: Cervical: No cervical adenopathy. Skin: General: Skin is warm and dry. Findings: No rash. Neurological: General: No focal deficit present. Mental Status: She is alert. ASSESSMENT/PLAN: 1. Suspected COVID-19 virus infection - ICD9: V01.79, ICD10: Z20.822 (primary diagnosis) - COVID & INFLUENZA A/B & RSV NAAT, ROUTINE 2. Malaise and fatigue - ICD9: 780.79, ICD10: R53.81, R53.83 - LYME AB LATE >30 DAYS SYMPTOMS With patient's tick bite and flulike symptoms will check for Lyme disease. Patient will return tomorrow for lab test. No antibiotics started at today's visit. Additionally will test for COVID-19 with flulike symptoms. Patient was educated on supportive therapies. Patient will follow up with primary care provider as needed. Patient was instructed to immediately proceed to emergency room for any new, worsening, or symptoms lasting longer than anticipated. The patient's clinical presentation is otherwise unremarkable at this time. Based on exam and clinical finding, the patient is stable for discharge. Plan of care was discussed with patient. Patient verbalizes understanding and agrees to plan of care. This note was generated using Runscope software. It may contain errors in wording, punctuation, or spelling. Dhruv Palacios APRN.AUDITOR SUPERVISOR documented in this encounter [facility] 01-24-2023 Note CHIEF COMPLAINT: Lef t knee pain HISTORY OF PRESENT ILLNESS: Mesha presents today for evaluation of left knee pain. She reports that for the past couple months she has had intermittent pain in her left knee. She previously underwent an MPFL reconstruction on this side in May 2022. She denies any new dislocations. Last night she turned and twisted her knee and began having a lot more pain. It swelled up, but this has improved significantly. She denies any instability. No numbness or tingling. No other concerns. PHYSICAL EXAMINATION: Mesha is a well-nourished, well-developed 17-year-old female in no apparent distress. Upon examination of the left knee, the skin is intact. Her surgical incisions are well-healed. There is no erythema, swelling, ecchymosis, bruising. There is no effusion. She has full extension and flexion. She is tender over her medial hamstrings. Nontender over the tibial tubercle, patellar tendon, quad tendon, patella, MPFL, medial and lateral retinaculum, MCL, LCL, joint line. Negative Nic's. Negative anterior/posterior drawer. Negative Serenity's. No pain or laxity with varus valgus stress. Negative logroll. The left lower extremity is neurovascularly intact distally. IMAGING: Deferred DIAGNOSIS AND IMPRESSION: Left knee hamstring tendinitis DISCUSSION AND TREATMENT PLAN: This patient was seen in conjunction with Dr. Patel, who also personally examined Mesha at today's office visit. Mesha is doing very well overall today. We reviewed conservative treatment and activity modification. She was given some stretches to work on. She may participate in activity as tolerated we can see her back as needed. They are in agreement. [facility] 11-23-2022 Miscellaneous Notes Tu sent to pharmacy. She may need to be evaluated in the office if she continues to have symptoms. Bria Arevalo APRN.CNP documented in this encounter [facility] 10-02-2022 Note Discharge Instructions Thank you for allowing [facility] to assist you with your healthcare needs. The following is important discharge information regarding your hospital visit. Diagnosis from Today's Visit Closed head injury without LOC Cough Sore throat - Adult What to Do Next Instructions from Your Care Team No qualifying data available. Post Acute Orders No qualifying data available. Allergies penicillin Medications Please ask your primary doctor or pharmacist before taking any other medication not listed, including over the counter drugs, herbal medications, vitamins and or supplements as they may interact with your home medications. What How Much When Instructions Last Dose New cephalexin (cephalexin 500 mg oral tablet) 1 tab(s) by mouth Two (2) times a day Duration: 10 Days Printed Prescription Please take this list to your next doctor s visit. Bring all medications you take, including over the counter medications, herbals and other supplements with you to your doctor s visit. Patients and families are reminded to discard old lists and to update any records with all medication providers or retail pharmacies. Additional Information VACCINATE! IT SAVES LIVES! Members of the community who have not yet received the COVID-19 vaccine and would like to receive it can visit one of [facility] vaccine clinics. There are many vaccine clinic locations within the [facility]. For locations and available times, please visit [email or web address] It is important to note that some COVID mobile vaccine clinics are held outdoors and may be canceled in rainy or stormy conditions. To learn more about pediatric vaccinations (ages 5-11), we invite you to visit the [facility] webpage. [email or web address] To learn more about the COVID-19 vaccine, we invite you to visit the CDC website for a list of frequently asked questions. https://www.cdc.gov/coronavirus/ 2019-ncov/vaccines/faq.html [facility] Patient Portal Access Instructions: Stay connected with your healthcare team and access your personal medical information anytime with the [facility] Patient Portal. If you would like a full copy of your medical records please contact the [facility] Medical Records Department Tuesday through Tuesday between 8a.m. and 4:30p.m. Please follow the directions below to access the portal: 1.Access the email account you provided upon registration to the [facility].2.Look for an invitation email from [facility].3.Open the email and access the invitation link: Accept Invitation to [facility]4.Fill in the required eden to create your account. Sign into [email or web address] with your username and password that you created in the above steps to stay up to date. You can then view a summary of results, a summary of your visits, and the ability to download your summaries to your computer or send the information securely to a physician. Remember that your healthcare information is confidential, so carefully consider who you will allow to register on the [facility] Patient Portal for access to your information. You can also access the [facility] Patient Portal on the [employer]. Simply click on Health Records under Health Data and then click on the [facility] logo. HOW TO SAFELY DISPOSE OF PRESCRIPTION MEDICATIONS Please use one of the following methods to safely dispose of your unused medications. 1.Use a drug disposal kit: the drug disposal pouch allows you to safely discard your old and unused drugs. Ask your nurse to give you one when you are discharged.2.Visit a local take-back location: Many local pharmacies and police departments have programs that collect old and unwanted prescription drugs. Call your local pharmacy or go to http://Movista.[employer]/0J4Vl8h to find one close to you.3.Make use of household items: Use cat litter or old coffee grounds to dispose medications if other options are not available. Mix your drugs with these household products, seal them in an airtight container and throw it into the garbage. Call [facility]: [phone] to be sure your drugs can be disposed of in this way. Some medicines may require a different approach.4.Never flush your medications down the toilet. IF YOU HAVE BEEN PRESCRIBED AN OPIOIDS FOR PAIN If you have been prescribed an opioid (such as hydrocodone, oxycodone or morphine), it is critical to understand the possible side effects and risks of opioid pain medications. Even when taken as directed, opioids can have several side effects including: Tolerance, meaning you might need to take more of a medication for the same pain relief. Nausea, vomiting and/or constipation. Sleepiness, dizziness, dry mouth, confusion, depression or itching. Physical dependence, meaning you have withdrawal symptoms when a medication is stopped ? this can develop within a few days. KNOW YOUR RESPONSIBILITIES It is important to know exactly how much and how often to take the opioid pain medications you are prescribed. Never take opioids in higher amounts or more often than prescribed. Do not combine opioids with alcohol or other drugs that cause drowsiness, such as benzodiazepines, also known as benzos, including diazepam and alprazolam, muscle relaxants or sleep aids. Never sell or share prescription opioids. This is illegal. Store opioids in a secure place and out of reach of others (including children, family, friends and visitors). The last page(s) of this document has been signed and retained as a CHART COPY Signatures Patient Education Materials Medication Leaflets My discharge plan and instructions have been reviewed and explained to me and I,MESHA GIRALDO understand my current condition and have read and understand these discharge instructions. I have received a written copy of the plan/instructions. If I have questions, I am aware that I should contact my doctor. Patient/Barrel Bander Signature: Date/Time: Relationship to Patient: Witness Name/Signature: Date/Time: [facility] 09-08-2022 Note HNO ID: [id number] Author: Jesus Sanchez PTA Service: ? Author Type: Warehouse Analyst Type: Progress Notes Filed: 01/25/2023 7:02 PM Note Text: 01/25/2023 [facility] PHYSICAL THERAPY DISCONTINUANCE OF CARE Plan of Care Period: Start of Care Date: 07/28/22 Last Visit Date: 09/08/2022 Therapy Program: The following is a summary of the interventions provided for this episode of care; Therapeutic exercise, Therapeutic activities, and Gait training Assessment: Based on most recent visit, patient was progressing as expected toward functional goals based on pain levels, documented subjective information on progress, and documented objective information regarding flexibility, joint mobility, and overall function. Unable to formally assess goal achievement, as patient has not returned to therapy or scheduled additional follow-up appointments. Reason for Discontinuation of Care: Patient has not returned to therapy or scheduled additional follow-up appointments. Deborah Davenport, PT Episode Visit Count: 2 Start of Care Date: 07/28/22 Onset Date: 05/14/22 Plan of Care Certification Date: 07/28/22 Next Certification Due Date: 10/26/22 Patient Identified by Name and Date of : Yes REHABILITATION AND SPORTS THERAPY PHYSICAL THERAPY TREATMENT NOTE ASSESSMENT: Mesha Giraldo tolerated the session with expected muscle soreness. She demonstrated difficulty with firing left quad vmo, resulting in lateral patellar tracking , also difficulty to engage left glut medius in left stance resulting in trendelenburg gait left stance. The patient will continue to benefit from ongoing skilled physical therapy to progress toward set goals. PLAN FOR NEXT VISIT: recheck patient next visit progress increased use of left vmo with quad set , strengthen bilateral glut medius, and address calf strength SUBJECTIVE: Patient Reason for Visit: patient reports continued pain in left medial knee Pain: Pain Pain Level: 1 Pain Location: Knee - Left Description: Sharp, Stiffness Frequency: Intermittent (with movement) Post Treatment Pain Post Treatment Pain Level: No Change OBJECTIVE MEASURES WITH LEVEL OF FUNCTION: LE AROM L Knee Flexion: 146 Degrees TREATMENT: Therapeutic Exercise: 1: *long sitting left quad set with self tactile cues to increase vmo firing, 5 x 3 2: *long sitting at EOB with left heel on foot stool ,quad set with slr through small ROM 10 x 3: *right sidelying with pink band above knees isometric clamshell 5 second hold x 5 x 2 4: sit to stand with decreased left genu valgus 10 x Skilled Intervention: Patient was educated in proper exercise technique and purpose for exercises. Reviewed and educated patient on additions/changes for home exercise program as above (*). Skilled judgment was provided in selection of appropriate interventions. Provided written instruction for home exercise program to facilitate proper performance and compliance. Therapeutic Activity: 1: [place] tapeleft patella medially 2: educated patient on use and purpose of taping left patella medially Skilled Intervention: see above Gait Trainin: gait to increase heel strike and toe off bilaterally, and to increase stability of left glut med in left stance Skilled Intervention: verbal, visual and tactile cues Billing Therapeutic Exercise Treatment Minutes: 30 Therapeutic Activity Treatment Minutes: 5 Gait Training Treatment Minutes: 10 Total Treatment Time Minutes (timed/untimed): 45 Jesus Sanchez PTA [facility] 08-04-2022 Note HNO ID: [id number] Author: Bria Arevalo APRN.AUDITOR SUPERVISOR Service: ? Author Type: Nurse Practitioner Type: Progress Notes Filed: 08/04/2022 2:46 PM Note Text: Mesha Giraldo is a 16 year old female who presents for problem visit discuss contraception . HPI: Currently on CYNTHIA. Remembers to take it daily with no missed doses and no side effects. Considering different contraception other than CYNTHIA because has read that CYNTHIA can cause infertility and has a higher rate. Menses was a week late last month. UPT negative. Currently on menses. OB History No obstetric history on file. 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 History Comments: Sexual Activity: Never; No partner data on record Contraception: No contraception data on record PAST MEDICAL HISTORY Diagnosis Date Concussion Constipation Insomnia Psychiatric disorder PAST SURGICAL HISTORY Procedure Laterality Date ADENOIDECTOMY HX CHOLECYSTECTOMY HX LAPAROSCOPY SURG CHOLECYSTECTOMY 11/30/2021 ORTHOPEDIC SURGERY HX Left foot TONSILLECTOMY HX FAMILY HISTORY Problem Relation Age of Onset Hypertension Mother Cervical Cancer Maternal Grandmother 40 Social History Tobacco Use Smoking status: Never Smokeless tobacco: Never Vaping Use Vaping Use: Never used Substance Use Topics Alcohol use: No Drug use: No Current Outpatient Medications Medication Sig ondansetron (ZOFRAN) 4 mg tablet Take 4 mg by mouth every 8 hours as needed for nausea/vomiting. norgestimate 0.25 mg-ethinyl estradiol 35 mcg (MONO-LINYAH) 0.25-35 mg-mcg per tablet TAKE 1 TABLET BY MOUTH ONCE DAILY FOR CONTINUOUS USE * SKIP PLACEBO PILLS FOR FOUR PACKS, TAKING ONLY ACTIVE PILLS norgestimate 0.25 mg-ethinyl estradiol 35 mcg (MONO-LINYAH) 0.25-35 mg-mcg per tablet TAKE 1 TABLET BY MOUTH ONCE DAILY FOR CONTINUOUS USE * SKIP PLACEBO PILLS FOR FOUR PACKS, TAKING ONLY ACTIVE PILLS venlafaxine (EFFEXOR) 37.5 mg tablet Take 75 mg by mouth once daily. diphenhydrAMINE (BENADRYL) 25 mg capsule Take 1-2 capsules by mouth every 6 hours as needed for itching/rash. (Patient not taking: Reported on 08/04/2022) No current facility-administered medications for this visit. Allergies As of Date: 08/04/2022 Allergen Noted Reaction PENICILLINS 04/19/2017 Hives and Swelling Fully Assessed 08/04/2022 REVIEW OF SYSTEMS Allergies and current medication updated:Yes EXAM: BP 110/64 Ht 5' 6 (1.68m) Wt 130 lb (59.0kg) LMP 07/27/2022 BMI 20.99 kg/(m2). GENERAL: pleasant, female in no apparent distress CHEST: Normal inspiratory effort NEURO: alert and oriented x3,exam grossly non-focal ASSESSMENT/PLAN: 1. General counseling and advice for contraceptive management - ICD9: V25.09, ICD10: Z30.09 (primary diagnosis) -- discussed contraceptive options with RBA including OCP, NuvaRing, Depo Provera, Nexplanon and IUDs. Pt prefers to continue CYNTHIA. 2. Late menses - ICD9: 626.8, ICD10: N92.6 - 1 week late. Home UPT negative. Currently on menses. Follow-up at annual exam and as needed. Bria Arevalo APRN.AUDITOR SUPERVISOR I spent a total of 20 minutes on the date of the service which included preparing to see the patient, [id number] patient care, completing clinical documentation, obtaining and/or reviewing separately obtained history, performing a medically appropriate examination, and counseling and educating the patient/family/caregiver. [facility] 08-04-2022 History of Presen t illness Narrative Mesha Giraldo is a 16 year old female who presents for problem visit discuss contraception . HPI: Currently on CYNTHIA. Remembers to take it daily with no missed doses and no side effects. Considering different contraception other than CYNTHIA because has read that CYNTHIA can cause infertility and has a higher rate. Menses was a week late last month. UPT negative. Currently on menses. OB History No obstetric history on file. 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 History Comments: Sexual Activity: Never; No partner data on record Contraception: No contraception data on record PAST MEDICAL HISTORY Diagnosis Date Concussion Constipation Insomnia Psychiatric disorder PAST SURGICAL HISTORY Procedure Laterality Date ADENOIDECTOMY HX CHOLECYSTECTOMY HX LAPAROSCOPY SURG CHOLECYSTECTOMY 11/30/2021 ORTHOPEDIC SURGERY HX Left foot TONSILLECTOMY HX FAMILY HISTORY Problem Relation Age of Onset Hypertension Mother Cervical Cancer Maternal Grandmother 40 Social History Tobacco Use Smoking status: Never Smokeless tobacco: Never Vaping Use Vaping Use: Never used Substance Use Topics Alcohol use: No Drug use: No Current Outpatient Medications Medication Sig ondansetron (ZOFRAN) 4 mg tablet Take 4 mg by mouth every 8 hours as needed for nausea/vomiting. norgestimate 0.25 mg-ethinyl estradiol 35 mcg (MONO-LINYAH) 0.25-35 mg-mcg per tablet TAKE 1 TABLET BY MOUTH ONCE DAILY FOR CONTINUOUS USE * SKIP PLACEBO PILLS FOR FOUR PACKS, TAKING ONLY ACTIVE PILLS norgestimate 0.25 mg-ethinyl estradiol 35 mcg (MONO-LINYAH) 0.25-35 mg-mcg per tablet TAKE 1 TABLET BY MOUTH ONCE DAILY FOR CONTINUOUS USE * SKIP PLACEBO PILLS FOR FOUR PACKS, TAKING ONLY ACTIVE PILLS venlafaxine (EFFEXOR) 37.5 mg tablet Take 75 mg by mouth once daily. diphenhydrAMINE (BENADRYL) 25 mg capsule Take 1-2 capsules by mouth every 6 hours as needed for itching/rash. (Patient not taking: Reported on 08/04/2022) No current facility-administered medications for this visit. Allergies As of Date: 08/04/2022 Allergen Noted Reaction PENICILLINS 04/19/2017 Hives and Swelling Fully Assessed 08/04/2022 REVIEW OF SYSTEMS Allergies and current medication updated:Yes EXAM: BP 110/64 Ht 5' 6 (1.68m) Wt 130 lb (59.0kg) LMP 07/27/2022 BMI 20.99 kg/(m^2). GENERAL: pleasant, female in no apparent distress CHEST: Normal inspiratory effort NEURO: alert and oriented x3,exam grossly non-focal ASSESSMENT/PLAN: 1. General counseling and advice for contraceptive management - ICD9: V25.09, ICD10: Z30.09 (primary diagnosis) -- discussed contraceptive options with RBA including OCP, NuvaRing, Depo Provera, Nexplanon and IUDs. Pt prefers to continue CYNTHIA. 2. Late menses - ICD9: 626.8, ICD10: N92.6 - 1 week late. Home UPT negative. Currently on menses. Follow-up at annual exam and as needed. Bria Arevalo APRN.PIERO I spent a total of 20 minutes on the date of the service which included preparing to see the patient, [id number] patient care, completing clinical documentation, obtaining and/or reviewing separately obtained history, performing a medically appropriate examination, and counseling and educating the patient/family/caregiver. documented in this encounter [facility] 07-28-2022 Note HNO ID: [id number] Author: Deborah Davenport, JOSEPH Service: ? Author Type: Physical Therapist Type: Progress Notes Filed: 07/28/2022 7:06 PM Note Text: Episode Visit Count: 1 Start of Care Date: 07/28/22 Onset Date: 05/14/22 Plan of Care Certification Date: 07/28/22 Next Certification Due Date: 10/26/22 Patient Identified by Name and Date of : Yes REHABILITATION AND SPORTS THERAPY PHYSICAL THERAPY EVALUATION PLAN OF CARE: Assessment: Mesha Giraldo presents with diagnosis of post MPFL ( medial P-F ligament ) reconstruction,06/08/22, (now 7 weeks post op) due to trauma fall when dancing , and dislocating her patella. that interferes with rising from a chair, sitting, standing, walking in the house, walking in the community, stair negotiation, bending, heavy exertion, lifting, physical activities, recreational activities, running, jumping, squatting, working . She presents to PT with a lateral and patellar support sleeve brace, which she states its only needed prn, she states she wore for dupport instead of her cane/ crutches. And presents with impairments in balance, coordination, edema management, flexibility, gait, independence in exercise, joint mobility, overall function, range of motion, strength , tissue tenderness, and wound healing. PROMIS? (Patient-Reported Outcomes Measurement Information System) scores were reviewed and were not performed. Prognosis for therapy is Good due to: current objective clinical presentation, good overall health status . She will benefit from skilled therapy services to meet the goals established for this plan of care as noted below. Goals for Episode of Care: created on 07/28/22 through 10/26/22 [place] in home exercise program. Patient will decrease pain to 0/10 with all functional mobility with functional activities to allow patient to improve ambulation, transfers, and standing tolerance for ADLs. Patient will increase active ROM of L knee to 0-145/155 to allow pt to to improve postural alignment, to improve gait mechanics / gait pattern , and to decrease falls risks . Patient will demonstrate increase in bilateral , LLE strength to 5/5 during manual muscle testing in order to improve function for basic self-care tasks and prior functional tasks. Patient will increase flexibility of bilateral LE's to equal unaffected extremity/side to improve ability to maintain proper posture, improve mechanics, and decrease pain. Patient will improve 10MWT to 1.2m/s with no assistive device to demonstrate improvement in functional community ambulation. Patient will improve 5 time sit to stand to demonstrate improvement in functional lower extremity strength. Normal gait. Reciprocal stair negotiation. Patient Goals: Goals : to being able to walk better, and be strong and dec pain Planned Interventions, Frequency, and Duration: Current Frequency: 2x/week Duration: 12 weeks Total Number of Visits Planned: 24 (dec to 1x week as gerardo) Planned Treatment Interventions: Therapeutic exercise (31187), Manual therapy (62397), Therapeutic activities (43669), Gait Training (31978), E-Stim Attended/TENS (75799) PLAN FOR NEXT VISIT: Progress QS, hold SLR if quad lag; Hams stretcheship fl, and calf stretches AND overall LE strength L knee, incl DF, PF Patient demonstrates good understanding of plan of care and treatment. The above goals and plan of care were discussed and agreed upon by patient/family. SUBJECTIVE: Mesha Giraldo is a 16 year old female seen today for PT eval for post L knee trauma and knee surgery Patient Goals: Goals : to being able to walk better, and be strong and dec pain Functional Limitations: rising from a chair, sitting, standing, walking in the house, walking in the community, stair negotiation, bending, heavy exertion, lifting, physical activities, recreational activities, running, jumping, squatting, working Prior Level of Function: Independent without limitations Relevant History Past Relevant Medical Conditions: (post B foot surgery on navicular bone) Past Relevant Surgical Conditions: (h/o don, adenoid, and tonsillectomy) Highest Level of Education: High School Preferred Language: Citizen Of [place] Right or Left Handed: Right Employment: (recently was working at [employer] until 2 prior injuries) Hobbies / Interests: dancing , acrobatic Home Environment Patient Lives With: Family (mom, 3 brothers, sister and sf) Assistance Available: PRN Home Type: [place] Entry To Home: Stairs, With Rail Number Of Stairs Into Home: 2 Intake Information: Prescription present Previous Treatment: None (issued HEP on DC from hosp. per pt) Falls Interview: Fall with injury in the last year Falls Intervention: More thorough falls assessment to be performed Pain: Pain Pain Level: 0 (in morning and night , cramping, 2-3/10) Pain Location: Knee - Left Description: Aching (vic at end of day) Frequency: (more content not included)... [facility] 07-28-2022 History of Presen t illness Narrative Episode Visit Count: 1 Start of Care Date: 07/28/22 Onset Date: 05/14/22 Plan of Care Certification Date: 07/28/22 Next Certification Due Date: 10/26/22 Patient Identified by Name and Date of : Yes REHABILITATION AND SPORTS THERAPY PHYSICAL THERAPY EVALUATION PLAN OF CARE: Assessment: Mesha Szymanski Enzo presents with diagnosis of post MPFL ( medial P-F ligament ) reconstruction,06/08/22, (now 7 weeks post op) due to trauma fall when dancing , and dislocating her patella. that interferes with rising from a chair, sitting, standing, walking in the house, walking in the community, stair negotiation, bending, heavy exertion, lifting, physical activities, recreational activities, running, jumping, squatting, working . She presents to PT with a lateral and patellar support sleeve brace, which she states its only needed prn, she states she wore for dupport instead of her cane/ crutches. And presents with impairments in balance, coordination, edema management, flexibility, gait, independence in exercise, joint mobility, overall function, range of motion, strength , tissue tenderness, and wound healing. PROMIS (Patient-Reported Outcomes Measurement Information System) scores were reviewed and were not performed. Prognosis for therapy is Good due to: current objective clinical presentation, good overall health status . She will benefit from skilled therapy services to meet the goals established for this plan of care as noted below. Goals for Episode of Care: created on 07/28/22 through 10/26/22 [place] in home exercise program. Patient will decrease pain to 0/10 with all functional mobility with functional activities to allow patient to improve ambulation, transfers, and standing tolerance for ADLs. Patient will increase active ROM of L knee to 0-145/155 to allow pt to to improve postural alignment, to improve gait mechanics / gait pattern , and to decrease falls risks . Patient will demonstrate increase in bilateral , LLE strength to 5/5 during manual muscle testing in order to improve function for basic self-care tasks and prior functional tasks. Patient will increase flexibility of bilateral LE's to equal unaffected extremity/side to improve ability to maintain proper posture, improve mechanics, and decrease pain. Patient will improve 10MWT to 1.2m/s with no assistive device to demonstrate improvement in functional community ambulation. Patient will improve 5 time sit to stand to demonstrate improvement in functional lower extremity strength. Normal gait. Reciprocal stair negotiation. Patient Goals: Goals : to being able to walk better, and be strong and dec pain Planned Interventions, Frequency, and Duration: Current Frequency: 2x/week Duration: 12 weeks Total Number of Visits Planned: 24 (dec to 1x week as gerardo) Planned Treatment Interventions: Therapeutic exercise (38798), Manual therapy (39191), Therapeutic activities (93103), Gait Training (47161), E-Stim Attended/TENS (23286) PLAN FOR NEXT VISIT: Progress QS, hold SLR if quad lag; Hams stretcheship fl, and calf stretches & overall LE strength L knee, incl DF, PF Patient demonstrates good understanding of plan of care and treatment. The above goals and plan of care were discussed and agreed upon by patient/family. SUBJECTIVE: Mesha Giraldo is a 16 year old female seen today for PT eval for post L knee trauma and knee surgery Patient Goals: Goals : to being able to walk better, and be strong and dec pain Functional Limitations: rising from a chair, sitting, standing, walking in the house, walking in the community, stair negotiation, bending, heavy exertion, lifting, physical activities, recreational activities, running, jumping, squatting, working Prior Level of Function: Independent without limitations Relevant History Past Relevant Medical Conditions: (post B foot surgery on navicular bone) Past Relevant Surgical Conditions: (h/o don, adenoid, and tonsillectomy) Highest Level of Education: High School Preferred Language: Citizen Of [place] Right or Left Handed: Right Employment: (recently was working at [employer] until 2 prior injuries) 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 per pt) Falls Interview: Fall with injury in the last year Falls Intervention: More thorough falls assessment to be performed Pain: Pain Pain Level: 0 (in morning and night , cramping, 2-3/10) Pain Location: Knee - Left Description: Aching (vic at end of day) Frequency: Intermittent, With movement, At rest Post Treatment Pain Post Treatment Pain Level: No Change PROMIS Scales T-scores: mean of general population = 50. 5 points is clinically meaningfully difference Percentiles provide an indication of how the patient's score ranks in relation to the general population. Higher percentile rankings indicate better function/quality of life. 50th percentile is the average of the general population and indicates half of respondents had a worse score. T-scores: mean of general population = 50. 5 points is clinically meaningfully difference Percentiles provide an indication of how the patient's score ranks in relation to the general population. Higher percentile rankings indicate better function/quality of life. 50th percentile is the average of the general population and indicates half of respondents had a worse score. OBJECTIVE MEASURES WITH LEVEL OF FUNCTION: Posture / Alignment LE Observations: Bilat anteversion B femurs Knee Observations L Knee Presents with: Swelling, Atrophy, Incision L Swelling: mod. diffuse, soft throughout knee L Atrophy : quads L Incision: well approximated healing 4 incisions, Knee Brace: Functional knee brace (latyeral and patellar support- prn use now, came in PT with it for security, and no AD) Sensation - Lower Extremity LE Light Touch Sensation: Grossly Intact (decreased Lateral L knee) LE AROM R Knee Extension: -2 Degrees (uninv) R Knee Flexion: 155 Degrees (uninv) L Knee Extension: -5 Degrees L Knee Flexion: 131 Degrees LE Flexibility Flexibility: Hamstring Flexibility, Hip Flexor Flexibility R Hamstring Flexibility: -45 per 90/90 L Hamstring Flexibility: -50 per 90/90 R Hip Flexor Flexibility: mild tigh L Hip Flexor Flexibility: mil;d tight LE Joint Mobility L Patellar Mobility: (NT) R Subtalar Joint: Hypomobile LE Strength R Hip Extension: 4+/5 R Hip Flexion (L2): 5/5 R Hip ABduction: 4-/5 R Knee Extension (L3): 4+/5 R Knee Flexion: 4+/5 R Ankle Dorsiflexion (L4): 4-/5 R Ankle Plantar Flexion: 4/5 L Hip Extension: 4+/5 L Hip Flexion (L2): 4/5 L Hip ABduction: 4-/5 L Knee Extension (L3): 3-/5 L Knee Flexion: 3/5 L Ankle Dorsiflexion (L4): 4-/5 L Ankle Plantar Flexion: 4/5 Functional Strength Functional Strength: Sit<>stand, Step up, Step down, Minisquat, Single Leg Squat, Lunge, Jump (B LE), Hop (single LE), Bilateral Heel Raise Sit/Stand: I Step up: mod I Step down: mod I Minisquat: unable Single Leg Squat: 0 L Lunge: 0 Jump (B LE): 0 Hop (single LE): 0 R Single Leg Heel Raise: 0 L Single Leg Heel Raise: 0 Bilateral Heel Raise : 1 (partial) Gait Weight Bearing Status: FWB Gait: Modified Independent Gait Distance (feet): 150' Gait Device: None (w/o cane , pt left at home, w & w/o brace L knee) Gait Deviations: Left Lower Extremity Gait Deviations Left Lower Extremity: Foot clearance decreased, Heel strike during initial stance decreased, Knee stability during stance phase decreased, Lacks full knee extension during terminal swing, Lacks hip extension beyond mid-stance, Push off during terminal stance decreased, Stance time decreased Stairs: Modified Independent Stairs: 3 (HR's) Balance Dynamic Standing Balance: Toe Walk, Heel Walk Toe Walk: x 5' Heel Walk: 1' Functional Performance Test Results 10 Meter Walk Test Trial 1 (seconds): 14.1 10 Meter Walk Test Trial 2 (seconds): 14.3 10 Meter Walk Test Average (m/sec): 0.42 5 Times Sit to Stand Test : 8.52 sec (19 ht) Education: Education Learning Preferences: Demonstration, Explanation Barriers: Acuity of Illness Learning/educational needs: Health promotion, Safety, Home exercise program, Changes in Plan of Care, Gait Training Education Provided: Yes, see treatment interventions for education provided TREATMENT: PT Treatment Interventions: Therapeutic Exercise, Therapeutic Activity Evaluation Evaluation Therapeutic Exercise: 1: *ankle pumps x 15 discussed with elevation and 6-8 x per day 2: QS, with tc, and correction x 10 3: SLR - needs to be on hold, due to IR hip and lacking 30 deg knee ext 4: *LAQ x 10 5: sit to stands 6: DF x 10x 2B Skilled Intervention: Patient was educated in proper exercise technique and purpose for exercises. Skilled judgment was provided in selection of appropriate interventions. Provided written instruction for home exercise program to facilitate proper performance and compliance. Therapeutic Activity: 1: edema manage: elevate, AP 2: impoprtance of inc Quad set before progress to SLR 3: PT eval rev and discussed Skilled Intervention: Educated on proper/safe technique for activities performed today. Activity progression based on professional judgment. Education edema , pain manage, and safe functional mobility. Billing * Evaluation Low Complexity: 1 Unit Therapeutic Exercise Treatment Minutes: 15 Therapeutic Activity Treatment Minutes: 15 Total Treatment Time Minutes (timed/untimed): 55 Deborah Davenport PT documented in this encounter [facility] 07-14-2022 Note COVID 19 RESULT: SARS-CoV-2 (Agent of COVID-19) Not Detected by RT-PCR or equivalent method. This test has been authorized by FDA under an Emergency Use Authorization (EUA). INFLUENZA A PCR: Negative for Influenza A by RT-PCR INFLUENZA B PCR: Negative for Influenza B by RT-PCR RSV PCR: Negative for Respiratory Syncytial Virus (RSV) by PCR [facility] Diagnosis Abdominal pain, generalized Loss of weight Nausea and vomiting, intractability of vomiting not specified, unspecified vomiting type documented in this encounter [facility] note* Diagnosis Near syncope- Primary Syncope and collapse Nausea Nausea alone Eating disorder, unspecified type documented in this encounter [facility] Work Phone: Evaluation note* Diagnosis Biliary dyskinesia- Primary Other specified disorder of gallbladder Pre-operative examination Preoperative examination, unspecified documented in this encounter [facility] note* Diagnosis Surveillance for control, oral contraceptives Surveillance of previously prescribed contraceptive pill [facility]* Diagnosis Hypertrophy of labia minora- Primary Hypertrophy of labia [facility]* Diagnosis Closed dislocation of left patella, initial encounter documented in this encounter [facility] note* Diagnosis Decreased strength involving knee joint- Primary Other musculoskeletal symptoms referable to limbs Acute pain of left knee Closed dislocation of left patella, subsequent encounter Status post arthroscopy of knee Other postprocedural status Abnormality of gait [facility]* Diagnosis General counseling and advice for contraceptive management- Primary Other general counseling and advice for contraceptive management Late menses Other disorder of menstruation and other abnormal bleeding from female genital tract [facility]* Diagnosis Posture abnormality- Primary Abnormal posture [facility] Diagnosis Suspected COVID-19 virus infection- Primary Malaise and fatigue Other malaise and fatigue [facility]* Diagnosis Suprapubic abdominal pain Abdominal pain, other specified site documented in this encounter [facility] note* Diagnosis Acute constipation- Primary Unspecified constipation Viral syndrome Unspecified viral infection, in conditions classified elsewhere and of unspecified site [facility] Attachments The following attachments cannot be sent through Care Everywhere. * Lightheadedness or Faintness (Citizen Of [place]) * Nausea and Vomiting (Citizen Of [place]) [facility] Phone: Hospital Discharge instructions No data available for this section [facility] Reason for visit Narrative* Auth/Cert Specialty Diagnoses / Procedures Referred By Jovany nguyen Referred To Contact Diagnoses Biliary dyskinesia Biliary dyskinesia [K82.8] Procedures IN LAP,CHOLECYSTECTOMY LAPAROSCOPIC CHOLECYSTECTOMY WITH CHOLANGIOGRAM ENDOSCOPY (UPPER AND COLONOSCOPY) [place] [address] Referral ID Status Reason Start Date Expiration Date Visits Re quested Visits Authorized [id number] 1 1 [facility] Summary Purpose Family History No Family History Records FoundNo Family History Records FoundNo Family History Records FoundNo Family History Records FoundNo Family History Records FoundNo Family History Records FoundNo Family History Records FoundNo Family History Records Found Advance Directives No Advanced Directives Records FoundDocuments on File Type Date Recorded Patient Barrel Bander Expl anation Advance Directives and Living Will Power of Layaway Clerk Documents on File Type Date Recorded Patient Barrel Bander Expl anation Advance Directive(s) 12/21/2020 1:01 PM Advance Directive(s) 04/19/2017 9:24 PM Documents on File Type Date Recorded Patient Barrel Bander Expl anation Advance Directive(s) 12/08/2021 10:38 PM Advance Directive(s) 11/06/2021 6:25 PM Advance Directive(s) 12/21/2020 1:01 PM Advance Directive(s) 04/19/2017 9:24 PM Reason for Referral Specialty Diagnoses / Procedures Referred By Jovany nguyen Referred To Contact Dietitian Registered / Obstetrics and Gynecology Diagnoses Eating disorder, unspecified type Doc Go MD [address] [place] [id number], LD [address] [place] [address] Referral ID Status Reason Start Date Expiration Date V isits Requested Visits Authorized [id number] Open Specialty Services Required 11/23/2021 11/23/2022 1 1 Scheduling Instructions [facility] - [address] [address] Specialty Diagnoses / Procedures Referred By Contac t Referred To Contact Family Medicine Diagnoses Near syncope Nausea Doc Go MD [address] [place] [address] [address]fl Ji Springer [address] [place] [address] Referral ID Status Reason Start Date Expiration Date V isits Requested Visits Authorized [id number] Open Specialty Services Required 11/23/2021 11/23/2022 1 1 Scheduling Instructions [address] [place] [address] Specialty Diagnoses / Procedures Referred By Contac t Referred To Contact Radiology Diagnoses Closed dislocation of left patella, initial encounter Procedures MRI KNEE JOINT without contrast Left Faina Alvarado MD [facility] [address] [place] [address] Referral ID Status Reason Start Date Expiration Date Visits Re quested Visits Authorized [id number] Closed 05/17/2022 07/16/2022 1 1 Health Concerns Infection Onset Date Last Indicated Resolved Time COVID-19 Rule-Out 02/08/2023 02/08/2023 02/09/2023 5:10 AM EDT Additional Source Comments INFORMATION SOURCE (unrecogn ized section and content) DATE CREATED AUTHOR AUTHOR'S ORGANIZ ATION 02/01/2021 [facility] DATE CREATED AUTHOR AUTHOR'S ORGANIZ ATION 11/25/2021 [facility] DATE CREATED AUTHOR AUTHOR'S ORGANIZ ATION 10/08/2022 [facility] ([place]) DATE CREATED AUTHOR AUTHOR'S ORGANIZ ATION 02/16/2023 [facility] DATE CREATED AUTHOR AUTHOR'S ORGANIZ ATION 04/08/2023 [facility] DATE CREATED AUTHOR AUTHOR'S ORGANIZ ATION 04/10/2023 [facility] DATE CREATED AUTHOR AUTHOR'S ORGANIZ ATION 06/29/2023 [facility] Center Care Teams (unrecognized sec tion and content) 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 Relationship Specialty Start Date End Date Rory Gaspar MD [address] [place] [address] PCP - General Pediatrics 10/28/14 ([place]), [place] [address] [place] [phone] 12/25/10 Rory Gaspar MD [address] [place] [address] Attending Physician Pediatrics 10/28/13 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 Relationship Specialty Start Date End Date Rory Gaspar [address] [place] [address] PCP - General Pediatrics 02/23/18 Jose Patel [address] [facility] [address] [place] [address] Orthopaedics Pediatrics 02/23/18 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 Relationship Specialty Start Date End Date Rory Gaspar MD [address] [place] [address] PCP - General Pediatrics 10/28/14 ([place]), Mids [address] [place] [phone] 12/25/10 Rory Gaspar MD [address] [place] [address] Attending Physician Pediatrics 10/28/13 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 Relationship Specialty Start Date End Date Rory Gaspar [address] [place] [address] PCP - General Pediatrics 02/23/18 Jose Patel [address] [facility] [address] [facility] [address] [place] [address] Orthopaedics Pediatrics 02/23/18 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 Relationship Specialty Start Date End Date Amparo Suhail Rory [address] [place] [address] PCP - General Pediatrics 02/23/18 Jose Patel [address] [facility] [address] [place] [address] Orthopaedics Pediatrics 02/23/18 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 Relationship Specialty Start Date End Date Amparo Jang Rory [address] [place] [address] PCP - General Pediatrics 02/23/18 MarioJose [address] [facility] [address] [place] [address] Orthopaedics Pediatrics 02/23/18 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 Relationship Specialty Start Date End Date Amparo Jang Rory [address] [place] [address] PCP - General Pediatrics 02/23/18 [place] [address] [facility] [address] [place] [address] Orthopaedics Pediatrics 02/23/18 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 Relationship Specialty Start Date End Date Rory Gaspar MD [address] [place] [address] PCP - General Pediatrics 10/28/14 ([place])[facility] [place] [address] [place] [phone] 12/25/10 Rory Gaspar MD [address] [place] [address] Attending Physician Pediatrics 10/28/13 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 Relationship Specialty Start Date End Date Rory Gaspar [address] [place] [address] PCP - General Pediatrics 02/23/18 Jose Patel [address] [facility] [address] [facility] [address] [place] [address] Orthopaedics Pediatrics 02/23/18 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 Relationship Specialty Start Date End Date Amparo Morenoon Rory [address] [facility] [place] [address] PCP - General Pediatrics 02/23/18 Jose Patel [address] [facility] [address] [place] [place] [address] Orthopaedics Pediatrics 02/23/18 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 Relationship Specialty Start Date End Date Amparo Morenoon Rory [address] [place] [address] PCP - General Pediatrics 02/23/18 Jose Patel [address] [facility] [address] [place] [address] Orthopaedics Pediatrics 02/23/18 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 Relationship Specialty Start Date End Date Rory Gaspar [address] [place] [address] PCP - General Pediatrics 02/23/18 Jose Patel [address] [facility] [address] [place] [address] Orthopaedics Pediatrics 02/23/18 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 Relationship Specialty Start Date End Date Amparo Morenoon Rory [address] [place] [address] PCP - General Pediatrics 02/23/18 Jose Patel [address] [facility] [address] [place] [address] Orthopaedics Pediatrics 02/23/18 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 Relationship Specialty Start Date End Date Rory Gaspar MD [address] [place] [address] PCP - General Pediatrics 10/28/14 ([place]), [place] [address] [place] [address] 12/25/10 Rory Gaspar MD [address] [place] [address] Attending Physician Pediatrics 10/28/13 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 Relationship Specialty Start Date End Date Rory Gaspar [address] [place] [address] PCP - General Pediatrics 02/23/18 Jose Patel [address] [facility] [address] [place], [place] [id number] Orthopaedics Pediatrics 02/23/18 Source Comments (unrecognize d section and content) In the event this informatio n is protected by the Federal Confidentiality of Alcohol and Drug Abuse Patient Records regulations: The Federal rules restrict any use of the information to criminally investigate or prosecute any alcohol or drug abuse patient.[facility] the event this information is protected by the Federal Confidentiality of Alcohol and Drug Abuse Patient Records regulations: The Federal rules restrict any use of the information to criminally investigate or prosecute any alcohol or drug abuse patient.[facility] the event this information is protected by the Federal Confidentiality of Alcohol and Drug Abuse Patient Records regulations: The Federal rules restrict any use of the information to criminally investigate or prosecute any alcohol or drug abuse patient.[facility] the event this information is protected by the Federal Confidentiality of Alcohol and Drug Abuse Patient Records regulations: The Federal rules restrict any use of the information to criminally investigate or prosecute any alcohol or drug abuse patient.[facility] the event this information is protected by the Federal Confidentiality of Alcohol and Drug Abuse Patient Records regulations: The Federal rules restrict any use of the information to criminally investigate or prosecute any alcohol or drug abuse patient.[facility] the event this information is protected by the Federal Confidentiality of Alcohol and Drug Abuse Patient Records regulations: The Federal rules restrict any use of the information to criminally investigate or prosecute any alcohol or drug abuse patient.[facility] the event this information is protected by the Federal Confidentiality of Alcohol and Drug Abuse Patient Records regulations: The Federal rules restrict any use of the information to criminally investigate or prosecute any alcohol or drug abuse patient.[facility] the event this information is protected by the Federal Confidentiality of Alcohol and Drug Abuse Patient Records regulations: The Federal rules restrict any use of the information to criminally investigate or prosecute any alcohol or drug abuse patient.[facility] the event this information is protected by the Federal Confidentiality of Alcohol and Drug Abuse Patient Records regulations: The Federal rules restrict any use of the information to criminally investigate or prosecute any alcohol or drug abuse patient.[facility] the event this information is protected by the Federal Confidentiality of Alcohol and Drug Abuse Patient Records regulations: The Federal rules restrict any use of the information to criminally investigate or prosecute any alcohol or drug abuse patient.[facility] the event this information is protected by the Federal Confidentiality of Alcohol and Drug Abuse Patient Records regulations: The Federal rules restrict any use of the information to criminally investigate or prosecute any alcohol or drug abuse patient.[facility] the event this information is protected by the Federal Confidentiality of Alcohol and Drug Abuse Patient Records regulations: The Federal rules restrict any use of the information to criminally investigate or prosecute any alcohol or drug abuse patient.[facility] Reason for Visit (unrecogniz ed section and content) Reason Onset Date Comments Refill Request 12/16/2021 Reason Comments Consult Reason Comments surgery authorization Reason Comments Schedule Surgery Specialty Diagnoses / Procedures Referred By Contac t Referred To Contact Radiology Diagnoses Closed dislocation of left patella, initial encounter Procedures MRI KNEE JOINT without contrast Left Faina Alvarado MD [facility] [address] [place] [address] Referral ID Status Reason Start Date Expiration Date Visits Re quested Visits Authorized [id number] Closed 05/17/2022 07/16/2022 1 1 Reason Comments PT Eval Specialty Diagnoses / Procedures Referred By Contac t Referred To Contact Physical Therapy / PHYSICAL THERAPY Diagnoses L knee Procedures NEW RS PT ORTH MSK Ciro Farmer (Lachelle) (Hist), PA [address] [place] [address] Deborah Davenport PT Referral ID Status Reason Start Date Expiration Date V isits Requested Visits Authorized [id number] Pending Review 07/28/2022 06/24/2023 1 1 Reason Comments Opened In Error Specialty Diagnoses / Procedures Referred By Contac t Referred To Contact Physical Therapy / PHYSICAL THERAPY Diagnoses L knee Procedures NEW RS PT ORTH MSK Ciro Farmer, CHASE [address] [facility] [address] [place] [address] Deborah Davenport PT Referral ID Status Reason Start Date Expiration Date Visits Re quested Visits Authorized [id number] Closed 07/28/2022 10/26/2022 24 24 Reason Comments bodyaches Bodyaches, fatigue a nd ALCALA x 1 day Reason Comments ED Follow Up Chest pain has resol reid, still has a sore throat, nasal congestion , headache, chills, cough for over 1 week. Ordered Prescriptions (unrec ognized section and content) Scheduled Active and Recently Administ ered Medications (unrecognized section and content) Linked Groups Order Group 1: Saline lock IV (COMPLETED) Routine, CONTINUOUS, Starting on 11/22/21 at 2330, Until Specified And sodium chloride flush 0.9 % injection 3 mLJump to med 3 mL, IntraVENous, EVERY 8 HOURS, First dose on 11/22/21 at 2317, Until Discontinued
Flush line with 3-5 mL
Scheduled Medication Order 11/29/2021 11/30/2021 12/01/2021 acetaminophen (TYLENOL) 325 MG tablet 650 mg 650 mg (49.7 mg/kg/DAY), Oral, EVERY 6 HOURS, 360 doses, First dose on 11/30/21 at 1630, Last dose on 02/28/22 at 1400 2017 (Given - Provider: Shira Oakley RN) 2574 (Given - Provider: Shira Oakley RN)7183 (Given - Provider: Raj Kowalski RN) ketorolac (TORADOL) 30 MG/ML Injection 13.2 mg 13.2 mg (1.01 mg/kg/DAY, rounded from 13.075 mg = 0.25 mg/kg/DOSE 52.3 kg), Intravenous, EVERY 6 HOURS, 12 doses, First dose on 11/30/21 at 1630, Last dose on Trini 12/03/21 at 1100 1759 (Not Given - Provider: Michelle White RN - Reason: Contraindicated - Comment: pt given last toradol dose at 1450-too soon for next dose)2310 (Given - Provider: Shira Oakley RN) 0511 (Given - Provider: Shira Oakley RN) NaCl 0.9% PosiFlush 2 mL 2 mL EVERY 8 HOURS (0.115 mL/kg/DAY), Intravenous, at 0-999 mL/hr, First dose on Tue11/30/21 at 1630, For 90 days 1700 (Not Given - Provider: Michelle White RN - Reason: Running IV fluids) 0109 (Not Given - Provider: Shira Oakley RN - Reason: See Comments - Comment: flushed at 2309)0832 (Not Given - Provider: Raj Kowalski RN - Reason: Other - Comment: recently given) ondansetron (ZOFRAN) injection 4 mg 4 mg (0.229 mg/kg/DAY), Intravenous, EVERY 8 HOURS, 270 doses, First dose on 11/30/21 at 1630, Last dose on Switchback 02/28/22 at 1400 2155 (Given - Provider: Shira Oakley RN) 0602 (Given - Provider: Shira Oakley RN) venlafaxine (EFFEXOR-XR) XR capsule 37.5 mg 37.5 mg (0.717 mg/kg/DAY), Oral, DAILY, 90 doses, First dose on 11/30/21 at 2100, Last dose on 02/27/22 at 2100, Do not crush 2152 (Given - Provider: Shira Oakley RN) Continuous Medication Order 11/29/2021 11/30/2021 12/01/2021 Dextrose 5% Lactated Ringers IV (CANCELED) CONTINUOUS, Intravenous, at 92 mL/hr, Starting on Tue11/30/21 at 1630, For 90 days, Saline lock when tolerating adequate PO intake. 2022 (New Bag - Provider: Yfn Oakley RN)2027 (Paused - Provider: Shira Oakley RN)2029 (Restarted - Provider: Shira Oakley RN)2048 (Paused - Provider: Shira Oakley RN)2050 (Restarted - Provider: Shira Oakley RN)2051 (Paused - Provider: Shira Oakley RN)2058 (Restarted - Provider: Shira Oakley RN)2099 (Dose/Rate Verification - Provider: Shira Oakley RN)2102 (Not Given - Provider: Shira Oakley RN - Reason: See Comments - Comment: restarted at 2022)2154 (Paused - Provider: Shira Oakley RN)2158 (Restarted - Provider: Shira Oakley RN)2199 (Dose/Rate Verification - Provider: Shira Oakley RN)2199 (Stopped - Provider: Shira Oakley RN) Lactated Ringers IV (CANCELED) CONTINUOUS, Intravenous, at 92 mL/hr, Starting on Tue11/30/21 at 1530, For 90 days, PACU 1506 (New Bag - Provider: Aayush Brooks RN)1513 (Dose/Rate Verification - Provider: Kayla Brooks RN)1603 (Dose/Rate Verification - Provider: Kayla Brooks RN)1604 (Due: Stopped)1608 (Rate/Dose Change - Provider: Raj Kowalski RN)1626 (Rate/Dose Change - Provider: Raj Kowalski RN)1832 (Paused - Provider: Raj Kowalski RN)1834 (Restarted - Provider: Raj Kowalski RN)1849 (Paused - Provider: Raj Kowalski RN)1900 (Restarted - Provider: Raj Kowalski RN)190 (Dose/Rate Verification - Provider: Raj Kowalski RN)190 (Paused - Provider: Shira Oakley RN)191 (Restarted - Provider: Shira Oakley RN)191 (Paused - Provider: Shira Oakley RN)192 (Restarted - Provider: Shira Oakley RN)1948 (Paused - Provider: Shira Oakley RN)1948 (Restarted - Provider: Shira Oakley RN)1952 (Paused - Provider: Shira Oakley RN)1952 (Restarted - Provider: Shira Oakley RN)1999 (Dose/Rate Verification - Provider: Shira Oakley RN)2011 (Stopped - Provider: Shira Oakley RN)2018 (Stopped - Provider: Shira Oakley RN) PRN Medication Order 11/29/2021 11/30/2021 12/01/2021 albuterol (PROAIR HFA;VENTOLIN HFA;PROVENTIL HFA) 108 (90 Base) MCG/ACT inhaler 2 Puff 2 Puff, Inhalation, EVERY 4 HOURS PRN, Starting on Tue11/30/21 at 1628, Until Tue12/01/21 at 1231, Shortness of Breath, Wheezing Ibuprofen (MOTRIN) tablet 400 mg 400 mg (7.65 mg/kg/DOSE), Oral, EVERY 6 HOURS PRN, Starting on Tue12/01/21 at 0811, Until Tue12/01/21 at 1231, Mild Pain = Pain Score 1-3 metoclopramide (REGLAN) injection 5.25 mg 5.25 mg (rounded from 5.23 mg = 0.1 mg/kg/DOSE 52.3 kg), Intravenous, ONCE PRN, Starting on Tue11/30/21 at 1628, Until Tue12/01/21 at 1231, Heartburn, PACU NaCl 0.9 % 10 mL 10 mL PRN (0.191 ml/kg/DOSE), Intravenous, at 0-999 mL/hr, Line Care, For mixture of medications, Starting on Tue11/30/21 at 1628, For 90 days, For mixture of medications 2154 (Given - Provider: Shira Oakley RN)2309 (Given - Provider: Shira Oakley RN) 510 (Given - Provider: Shira Oakley RN)601 (Given - Provider: Shira Oakley RN) NaCl 0.9 % IV Flush bag 30 mL 30 mL PRN (0.574 ml/kg/DOSE), Intravenous, at 0-999 mL/hr, Flush IV line after medication IVPB bag if given., Starting on Tue11/30/21 at 1628, For 90 days, Flush IV line after medication IVPB bag if given. NaCl 0.9% PosiFlush 2 mL 2 mL PRN (0.0382 ml/kg/DOSE), Intravenous, at 0-999 mL/hr, Line Care, Starting on Tue11/30/21 at 1628, For 90 days 2154 (Push - Provider: Shira Oakley RN - Comment: x2 flushes)2203 (Push - Provider: Shira Oakley RN)2309 (Push - Provider: Shira Oakley RN - Comment: x2 flushes) 0510 (Push - Provider: Shira Oakley RN - Comment: x2 flushes)0601 (Push - Provider: Shira Oakley RN - Comment: x2 flushes) NaCl 0.9% PosiFlush 5 mL 5 mL PRN (0.0956 ml/kg/DOSE), Intravenous, at 0-999 mL/hr, Line Care, Starting on Tue11/30/21 at 1628, For 90 days oxyCODONE (immediate release) (ROXICODONE) CUT tablet 2.5 mg 2.5 mg (0.0478 mg/kg/DOSE), Oral, EVERY 6 HOURS PRN, Starting on Tue12/01/21 at 0723, Until Tue12/01/21 at 1231, Severe Pain = Pain Score 7-10 sterile water injection 10 mL 10 mL (0.191 ml/kg/DOSE), Intravenous, PRN, Starting on Tue11/30/21 at 1628, Until Tue12/01/21 at 1231, For mixture of medications, For mixture of medications FOR RECORDS PERTAINING TO PATIENTS WHO ARE OR HAVE BEEN ENROLLED IN A CHEMICAL DEPENDENCY/SUBSTANCEABUSE PROGRAM, SOME INFORMATION MAY BE OMITTED. This clinical summary was aggregated from multiple sources. Caution should be exercised in using it in the provision of clinical care. This summary normalizes information from multiple sources, and as a consequence, information in this document may materially change the coding, format and clinical context of patient data. In addition, data may be omitted in some cases. CLINICAL DECISIONS SHOULD BE BASED ON THE PRIMARY CLINICAL RECORDS. [facility]. provides no warranty or guarantee of the accuracy or completeness of information in this document.
== END | disposition home or self-care (01) ==
LOC: MTRAD 15:41
PROVIDERS: PCP Pediatrics; Referring Provider Physician Assistant; Visit Provider Physician Assistant
DX: S97.122A Crushing injury of left lesser toe(s), initial encounter (principal)
CPT/HCPCS: 73660

== ENCOUNTER 2023-07-30 21:48 | Emergency (ER) | payer MEDICAID, SELFPAY ==
[2023-07-30 21:49] VITALS: BP 134/84; PULSE 89; RESP 15; TEMP 36; O2SAT 100; BMI 24.2
--- NOTE | 2023-07-30 22:07 | ED.VIS.DYS ---
HPI History of Present Illness Chief Complaint: Shortness of Breath Informant: patient Onset/Context/Timing Onset: Days (5) Context: sudden Timing: Continuous Quality: Positive for - ( Cannot catch my breath ) Worsened by: - (Sitting down) Relieved by: - (Standing) Associated Symptoms cough and sore throat; Negative for rhinorrhea, post nasal drip, ear pain, fever, chills, sweats, clear sputum, white sputum, yellow sputum or green sputum Chest Pain: Positive for Intermittent and Dull Narrative Narrative: Patient presents with shortness of breath that has been getting worse over the past 5 days. Patient states she feels like she cannot catch her breath. Patient states that it has been constant. Patient states it is worse when she sits up but better when she stands up. Patient admits to a slight cough. Patient denies any sputum production. Patient admits to a mild sore throat. Patient states she has been having some intermittent chest pain over the past couple days. Patient states it would last for several hours. Patient states she also noted some twitching in her left hand. Patient states she has an episode where her hand starts moving and she has difficulty controlling her hand. Patient states this only last for a few seconds. Patient denies any paresthesias or weakness. [facility] Medical History Acute bronchitis, unspecified Anxiety Asthma Chronic neck and back pain Depression Fatigue Nondisp fx proximal phalanx lesser toe left foot w/delayed healing Severe headache SOB (shortness of breath) Home Medications norgestimate 0.25 mg-ethinyl estradiol 35 mcg tablet 1 tablet PO DAILY 11/11/20 [History Last Taken Unknown] albuterol sulfate 90 mcg/actuation aerosol inhaler (Ventolin HFA) 1 - 2 puff inhalation Q4H PRN PRN Wheezing ##1 07/30/23 [Rx Last Taken Unknown] ondansetron 4 mg disintegrating tablet 4 mg PO Q8H PRN PRN nausea and vomiting 07/30/23 [History Last Taken Unknown] venlafaxine 37.5 mg capsule,extended release 24 hr 37.5 mg PO DAILY 07/30/23 [History Last Taken Unknown] Allergy/AdvReac Type Severity Reaction Status Date / Time Penicillins Allergy Hives Verified 07/30/23 22:12 Surgical History H/O knee surgery H/O wisdom tooth extraction History of foot surgery History of tonsillectomy and adenoidectomy Hx of excision of hemangioma Social History Smoking Status: Never smoker ROS ROS ED Constitutional Constitutional ED: Denies chills or fever(s) Eyes Eyes: Denies blurry vision or change in vision ENT ENT ED: Denies rhinorrhea or sore throat Cardiovascular Cardiovascular: Reports chest pain; Denies palpitations Respiratory/Chest Respiratory/Chest: Reports cough and dyspnea Gastrointestinal Gastrointestinal: Reports nausea; Denies vomiting Genitourinary Genitourinary ED: Denies dysuria or hematuria Musculoskeletal Musculoskeletal: Reports back pain; Denies neck pain Integumentary Denies abscess or rash Neurologic Neurologic: Reports headache(s); Denies weakness Allergic/Immunologic Allergic/Immunologic ED: Denies mouth swelling or urticaria EXAM Physical Exam Const Vital Signs: 07/30/23 21:49 07/30/23 22:14 07/30/23 22:41 Temperature 96.8 F L Temperature Source Temporal Pulse Rate 89 88 Respiratory Rate 15 14 Respiratory Effort Normal Non-Labored Respiratory Depth Normal Respiratory Pattern Normal Blood Pressure 134/84 H Blood Pressure Mean 100 Pulse Ox 100 Oxygen Delivery Method Room Air Room Air Positive well nourished and well developed General Appearance ED: well developed and NAD HEENT Reports moist mucous membranes Neck supple, no meningeal signs and no JVD Resp normal respiratory effort and clear to auscultation bilaterally Cardio regular rate and regular rhythm GI non-tender and non-distended Palpation: soft Neuro oriented x3, CN's II-XII intact bilaterally and no sensory deficits noted [place] Coma Scale: document GCS findings Spontaneous Obeys Commands Oriented 15 Sensorium / Orientation: alert Speech: speech normal Motor Exam: strength 5/5 throughout Psych mental status grossly normal MDM MDM MDM Narrative Medical decision making narrative: Differential diagnosis includes viral illness, pneumonia, bronchitis, and anxiety. Patient has a Wells score of 0. Patient is not hypoxic. Patient not tachycardic. I do not feel this is from a pulmonary embolism. CBC will be obtained to assess for leukocytosis and anemia. Basic metabolic profile will be obtained to assess for electrolyte abnormality and renal function. COVID-19, influenza, and RSV PCR will be obtained to assess for viral infection. Chest x-ray will be obtained to assess for pneumonia, pneumothorax, and bronchitis. Lab Data Attestation: I reviewed the patient's lab results. Lab results narrative: CBC was reviewed and was within normal limits. Basic metabolic profile was reviewed and was essentially within normal limits. Glucose was slightly low at 73. COVID-19 PCR was reviewed and was negative. Influenza PCR was reviewed and was negative for influenza A and influenza B. RSV PCR was reviewed and was negative. Labs: Laboratory Results - last 24 hr 07/30/23 22:42 WBC 6.5 RBC 4.42 Hgb 12.9 Hct 40.6 MCV 91.9 MCH 29.2 MCHC 31.8 L RDW Std Deviation 43.8 RDW Coeff of Ernestina 13.0 Plt Count 286 MPV 9.5 Immature Gran % (Auto) 0.200 Neut % (Auto) 41.7 L Lymph % (Auto) 49.1 H [place] % (Auto) 6.2 Eos % (Auto) 2.0 Baso % (Auto) 0.8 Absolute Neuts (auto) 2.7 Absolute Lymphs (auto) 3.18 Nucleated RBC % 0 Sodium 140 Potassium 3.6 Chloride 110 H Carbon Dioxide 26.0 Anion Gap 4 L BUN 9 Creatinine 0.71 Estim Creat Clear Calc 119.31 Est GFR (MDRD) Af Amer 135 Est GFR (MDRD) Non-Af 112 BUN/Creatinine Ratio 12.7 Glucose 73 L Calcium 8.6 Radiography Diagnostic Testing: Clinical Impression(s) from Imaging Studies Chest X-Ray 07/30/23 23:00 IMPRESSION: Normal x-ray examination of the chest. Electronically Signed: Michaela Vick MD at 23:32 EST , PA and lateral chest x-ray was obtained. There are 2 views. On my independent interpretation, lung [place] are clear. There is no acute infiltrate noted. There is normal cardiac silhouette. Bony thorax is normal. There is no acute cardiopulmonary process. Radiologist also interpreted the x-rays and agrees. Treatment and Re-Evaluation :: Patient was given a DuoNeb aerosol here. Patient is feeling better on reevaluation. Patient requested a prescription for a home nebulizer machine. Patient was advised that we are unable to do this from the emergency department. Patient was given a prescription for an albuterol inhaler however. Patient was instructed to follow-up with her primary care physician in 5 to 7 days. Patient understood and was agreeable with the plan. All questions were answered. Discharge Plan Triage Chief Complaint: Shortness of Breath ED Provider: William Ruiz Dx/Rx/DC Orders Clinical Impression: SOB (shortness of breath), Viral upper respiratory tract infection Instructions: ED Dyspnea, ED URI, Viral, No Abx (Adult) Prescriptions: New albuterol sulfate [Ventolin HFA] 90 mcg/actuation HFA aerosol inhaler 1 - 2 puff inhalation Q4H PRN PRN (Reason: Wheezing) Qty: 1 0RF No Action norgestimate-ethinyl estradiol 0.25-35 mg-mcg tablet 1 tablet PO DAILY ondansetron 4 mg tablet,disintegrating 4 mg PO Q8H PRN PRN (Reason: nausea and vomiting) Patient Comments: DISSOLVE 1 (ONE) TABLET on the tongue EVERY 8 HOURS NEEDED FOR NAUSEA venlafaxine 37.5 mg capsule,extended release 24hr 37.5 mg PO DAILY Patient Comments: Take 1 Capsule (37.5 mg) by mouth daily for 30 days Primary Care Provider: Vanessa Santos Referrals: Vanessa Santos MD [Primary Care Provider] - 5-7 Days Disposition Disposition: Home, Self Care
--- OUTSIDE RECORDS SUMMARY | 2023-07-30 22:29 | XMS RPT_ITS | CCD ---
Author Name Unknown Address [address] [place] [address] Organization [facility] Care Team Providers Care Quality Internship Name Role Phone (Gian), Wads Unavailable Rory [...] Rory Gaspar Primary Care Provider Jose Patel T Unavailable JOSE PETERSON, DR VALADEZ S Primary Care Physician NICHOLAS ATKINS DO Attending Unavailable JOSE PETERSON, DR RORY Lowery Primary Care Hazel shah (Gian), Janaeds Unavailable Rory Gaspar MD Unavailable Amparo Jang MD, Rory Primary Care Provider [phone] MARTELL KATZ Attending Unavailable PATSY HERNANDEZ Referring Unavailable AMPARO TONYA, RORY Primary Care Unavailable AMPARO TONYA, RORY Primary Care Unavailable BRIA AREVALO Attending Unavailable BRIA AREVALO Referring Unavailable AMPARO TONYA, RORY Primary Care Unavailable AMPARO TONYA, RORY Primary Care Unavailable PATSY HERNANDEZ Attending Unavailable AMPARO TONYA, RORY Primary Care Unavailable CIRO FARMER (PA) (HIST) Referring Unava ilable AMPARO TONYA, RORY Primary Care Unavailable CIRO FARMER (PA) (HIST) Referring Unava ilable AMPARO TONYA, RORY Primary Care Unavailable AMPARO TONYA, RORY Primary Care Unavailable DHRUV PALACIOS Referring Unavailable LUDWIG BRYAN Attending Unavailable AMPARO TONYA, RORY Primary Care Unavailable MARY CARTER Attending Unava ilable AMPARO TONYA, RORY Primary Care Unavailable LUDWIG BRYAN Attending Unavailable AMPARO TONYA, RORY Primary Care Unavailable MARY CARTER Attending Unava ilable AMPARO TONYA, RORY Primary Care Unavailable AMPARO TONYA, RORY Primary Care Unavailable JAYLENE BAH Attending Unavailable AMPARO TONYA, RORY Primary Care Unavailable RACQUEL SCHMIDT Attending Unavailable AMPARO TONYA, RORY Primary Care Unavailable NUSRAT CRAMER Attending Unavailable AMPARO TONYA, RORY Primary Care Unavailable MARY CARTER Attending Unava ilable MARIOLA FIERRO Attending Unavaila ble AMPARO TONYA, RORY Primary Care Unavailable MINA SALGUERO Attending Unavailable AMPARO TONYA, RORY Primary Care Unavailable LUDWIG BRYAN Attending Unavailable AMPARO TONYA, RORY Primary Care Unavailable VÍCTOR GONZALES Attending Unavailable AMPARO TONYA, RORY Primary Care Unavailable (Gian), Yisel Unavailable Rory Gaspar MD Unavailable Veronika Farley DO Primary Care Provider [phone] CIRO FARMER Attending Unavailable CIRO FARMER Referring Unavailable VERONIKA FARLEY Primary Care Unavailable JOSE PATEL Attending Unavailable AMPARO TONYA, RORY Primary Care Unavailable REFERRED, SELF Referring Unavailable AMPARO TONYA, RORY Attending Unavailable AMPARO TONYA, RORY Primary Care Unavailable REFERRED, SELF Referring Unavailable JOSE PATEL Attending Unavailable AMPARO TONYA, RORY Primary Care Unavailable REFERRED, SELF Referring Unavailable MARIOJOSE Attending Unavailable AMPARO TONYA, RORY Referring Unavailable AMPARO TONYA, RORY Primary Care Unavailable AMPARO TONYA, RORY Primary Care Unavailable AMPARO TONYA, RORY Attending Unavailable REFERRED, SELF Referring Unavailable MIGUELITODANN PETTYNCER J Primary Care Unavailable MIGUELITO VERONIKA J Attending Unavailable REFERRED, SELF Referring Unavailable AMPARO TONYA, RORY Referring Unavailable AMPARO TONYA, RORY Primary Care Unavailable AMPARO TONYA, RORY Attending Unavailable AMPARO TONYA, RORY Attending Unavailable AMPARO TONYA, RORY Referring Unavailable AMPARO TONYA, RORY Primary Care Unavailable Allergies Allergy Classification Reported Allergen(s) Allergy Type Date of Onset Reaction(s) Facility (9 sources) Amoxicillin; Translations: [AMOXICILLIN] Drug Allergy 03-20-2015 [facility] (12 sources) Penicillins; Translations: [PENICILLINS] Drug Allergy 04-19-2017 [facility] (10 sources) Penicillins Drug Allergy 04-19-2017 [facility] (1 source) Penicillin; Translations: [penicillin] Drug Allergy [facility] Medications Current Medications Medication Drug Class(es) [...] Drug Class(es) Dates Sig (Normalized) Sig (Original) [id number] 200 actuat albuterol 0.09 mg/actuat metered dose [...] Date Documented Da te Episodic/Chronic Anxiety disorders (8 sources) Generalized anxiety disorder; Translations: [Generalized anxiety [...] disorder, unspecified] Onset: 02-04-2022 Chronic Mood disorders (8 sources) Depressive disorder; Translations: [Major depressive disorder, single episode, unspecified] Onset: 10-22-2020 10-22-2020 Chronic Nonspecific chest pain (1 source) Chest pain, unspecified; Translations: [Chest pain, unspecified type] Onset: 04-02-2023 Episodic Other congenital anomalies (20 sources) Accessory right tarsal navicular bone; Translations: [...] pain] Onset: 1 Resolved: 2 Episodic Asthma (8 sources) Exercise-induced asthma; Translations: [Exercise induced bronchospasm] Onset: 8 Resolved: 9 04-10-2019 Chronic Attention-deficit, conduct, and disruptive behavior disorders (8 sources) Disruptive behavior disorder; Translations: [Conduct disorder, unspecified] Onset: 0 Resolved: 8 08-06-2021 Chronic Attention-deficit, conduct, and disruptive behavior disorders (8 sources) Attention deficit hyperactivity disorder; Translations: [Attention-deficit hyperactivity disorder, unspecified type] Onset: 3 Resolved: 9 08-06-2021 Chronic Attention-deficit, conduct, and disruptive behavior disorders (8 sources) Oppositional defiant disorder; Translations: [Oppositional defiant disorder] Onset: 3 Resolved: 8 08-06-2021 Chronic Biliary tract disease (7 sources) Biliary dyskinesia; Translations: [Other specified diseases of gallbladder] Onset: 2 Episodic E Codes: Natural/environment (1 source) Bitten or stung by nonvenomous insect and other nonvenomous arthropods, initial encounter; Translations: [Tick bite of abdominal wall, initial encounter] Onset: 3 Episodic Esophageal disorders (8 sources) Gastroesophageal reflux disease; Translations: [Gastro-esophageal reflux disease without esophagitis] Onset: 1 Resolved: 5 08-13-2014 Chronic Gastritis and duodenitis (1 source) Acute gastritis without bleeding; Translations: [Acute gastritis without hemorrhage, unspecified gastritis type] Onset: 3 Episodic Genitourinary symptoms and ill-defined conditions (9 sources) Microscopic hematuria; Translations: [Other microscopic hematuria] Onset: 3 Resolved: 6 08-06-2021 Episodic Headache; including migraine (1 source) Headache disorder; Translations: [Headache disorder] Onset: 3 Episodic Inflammatory diseases of female pelvic organs (1 source) Acute vaginitis; Translations: [Acute vaginitis] Onset: 3 Episodic Joint disorders and dislocations; trauma-related (12 sources) Dislocation of patellofemoral joint; Translations: [Unspecified dislocation of left patella, initial encounter] Onset: 2 Episodic Malaise and fatigue (3 sources) Malaise and fatigue; Translations: [Other malaise] Onset: 3 02-08-2023 Episodic Nausea and vomiting (11 sources) Nausea and vomiting; Translations: [Nausea with vomiting, unspecified] Onset: 2 Resolved: 2 09-03-2021 Episodic Other congenital anomalies (8 sources) Accessory left tarsal navicular bone; Translations: [...] Episodic Other nutritional; endocrine; and metabolic disorders (9 sources) Weight loss; Translations: [Abnormal weight loss] Onset: 2 Resolved: 2 09-03-2021 Episodic Other nutritional; endocrine; and metabolic disorders (8 sources) Childhood obesity; Translations: [Body mass index (BMI) pediatric, greater than or equal to 95th percentile for age] Onset: 8 Resolved: 2 06-30-2021 Episodic Other screening for suspected conditions (not mental disorders or infectious disease) (1 source) Encounter for test, result negative; Translations: [Negative test] Onset: 3 Episodic Other skin disorders (20 sources) Keratosis pilaris; Translations: [Other specified epidermal [...] Spondylosis; intervertebral disc disorders; other back problems (8 sources) Lumbosacral spondylosis without myelopathy; Translations: [Spondylosis [...] 16:05-0400 Body height 167.6 cm Martell Katz [employer] Work Phone: [facility] 04-06-2023 16:05-0400 Body temperature 98.49 [degF] Martell Katz [employer] Work Phone: [facility] 04-06-2023 16:05-0400 Body weight 72.58 kg Martell Katz [employer] Work Phone: [facility] 04-06-2023 16:05-0400 Diastolic blood pressure 70 mm[Hg] Martell Katz [employer] Work Phone: [facility] 04-06-2023 16:05-0400 Heart rate 85 /min Martell Katz DO Work Phone: [facility] 04-06-2023 16:05-0400 Respiratory rate 18 /min Martell Katz DO Work Phone: [facility] 04-06-2023 16:05-0400 SaO2% (BldA) [Mass fraction] 96 % Martell Katz DO Work Phone: [facility] 04-06-2023 16:05-0400 Systolic blood pressure 103 mm[Hg] Martell Katz DO Work Phone: [facility] 02-08-2023 18:26-0400 Body temperature 99.19 [degF] Dhruv [facility] CABLE TECHNICIAN.ENROLLED AGENT Work Phone: [facility] 02-08-2023 18:26-0400 Body weight 69.94 kg Dhruv [facility] CABLE TECHNICIAN.ENROLLED AGENT Work Phone: [facility] 02-08-2023 18:26-0400 Diastolic blood pressure 82 mm[Hg] Dhruv [facility] CABLE TECHNICIAN.ENROLLED AGENT Work Phone: [facility] 02-08-2023 18:26-0400 Heart rate 102 /min Dhruv [facility] CABLE TECHNICIAN.ENROLLED AGENT Work Phone: [facility] 02-08-2023 18:26-0400 Respiratory rate 18 /min Dhruv [facility] CABLE TECHNICIAN.ENROLLED AGENT Work Phone: [facility] 02-08-2023 18:26-0400 SaO2% (BldA) [Mass fraction] 98 % Dhruv [facility] CABLE TECHNICIAN.ENROLLED AGENT Work Phone: [facility] 02-08-2023 18:26-0400 Systolic blood pressure 128 mm[Hg] Dhruv [facility] CABLE TECHNICIAN.ENROLLED AGENT Work Phone: [facility] 10-02-2022 00:54-0400 Body height 167.6 cm NICHOLAS MILLY DO [facility] 10-02-2022 00:54-0400 Body temperature 98.24 [degF] NICHOLAS ATKINS DO [facility] 10-02-2022 00:54-0400 Body weight 59.1 kg NICHOLAS ATKINS DO [facility] 10-02-2022 00:54-0400 Diastolic Blood Pressure Non-Invasive 76 1 NICHOLAS ATKINS DO [facility] 10-02-2022 00:54-0400 Heart rate 60 /min NICHOLAS ATKINS DO [facility] 10-02-2022 00:54-0400 Height ZScore 0.67 NICHOLAS ATKINS DO [facility] Encounters Encounter Date Encounter Type Care Provider Facility Start: 07-18-2023 End: 07-18-2023 ambulatory VERONIKA Lopez [facility] Start: 07-18-2023 End: 07-19-2023 ambulatory CIRO Snyder [facility] Start: 07-18-2023 End: 07-18-2023 Subsequent hospital visit by physician Ciro Farmer PA-C Work Phone: Radiology Ortho Procedures Date Procedure Procedure Detail Performing Clinician Start: 07-18-2023 Radex toe minimum 2 views Ciro Farmer PA-C Work Phone: Start: 02-15-2023 End: 02-15-2023 Us abdominal real time w/image documentation Rory Jang MD Work Phone: Start: 02-15-2023 Us pelvic nonobstetr ic real-time image complete Rory Jang MD Work Phone: Start: 02-08-2023 COVID & INFLUENZA A/ B & RSV NAAT, ROUTINE Dhruv Palacios CABLE TECHNICIAN.ENROLLED AGENT Work Phone: Start: 02-08-2023 Iadna respiratry pro be & rev trnscr 3-5 targets Dhruv Palacios APRN.ENROLLED AGENT Work Phone: Start: 02-08-2023 Sars-cov-2 detection by dna/rna Dhruv Palacios APRN.ENROLLED AGENT Work Phone: Start: 11-30-2021 End: 11-30-2021 ENDOSCOPY (UPPER AND COLONOSCOPY) Jose Daniel Nguyen Ava DO Work Phone: Start: 11-30-2021 End: 11-30-2021 [...] abdominal real time w/image documentation Lisa Schmid APRN-ENROLLED AGENT Work Phone: Plan of Treatment Date Care Activity Detail Author Start: 02-22-2032 Tetanus Diphtheria a nd Pertussis Vaccines (5 - Td or Tdap) Tetanus Diphtheria and Pertussis Vaccines (5 - Td or Tdap) [facility] Start: 02-22-2032 Tetanus Diphtheria a nd Pertussis Vaccines (8 - Td or Tdap) Tetanus Diphtheria and Pertussis Vaccines (8 - Td or Tdap) [facility] Start: 02-22-2032 Urine microalbumin profile [facility] Start: 03-20-2025 DTaP/Tdap/Td vaccine (7 - Td or Tdap) DTaP/Tdap/Td vaccine (7 - Td or Tdap) [facility] Start: 03-20-2025 Tetanus Diphtheria a nd Pertussis Vaccines (7 - Td or Tdap) Tetanus Diphtheria and Pertussis Vaccines (7 - Td or Tdap) [facility] Start: 07-18-2024 Well Visit Well Visit [facility] Start: 01-16-2024 End: 01-16-2024 Patient encounter procedure 01/16/2024 1:30 PM EDT [facility] [address] [place] [address] Veronika Farley DO [address] [place], [place] [id number] [facility] Start: 04-14-2023 Well Visit Well Visit [facility] Start: 02-25-2023 FLU (#1) FLU (#1) [facility] Start: 02-25-2023 Influenza vaccination [facility] Start: 02-08-2023 End: 04-10-2023 Borrelia burgdorferi IgG and IgM panel - Serum LYME AB LATE >30 DAYS SYMPTOMS Lab Routine Malaise and fatigue Expected: 02/08/2023, Expires: 04/10/2023 [facility] Work Phone: Immunizations Immunization Date Immunization Notes Care Provider [facility] 05-02-2023 influenza, injectabl e, quadrivalent, preservative free Ciro Farmer PA-C Work Phone: [facility] 03-17-2022 Human Papillomavirus 9-valent vaccine Yary Alvarado MD Work Phone: [facility] 03-17-2022 influenza, injectabl e, quadrivalent, preservative free Yary Alvarado MD Work Phone: [facility] 03-17-2022 influenza virus vacc ine, unspecified formulation Martell Katz DO Work Phone: [facility] 02-21-2022 tetanus toxoid, redu gaston diphtheria toxoid, and acellular pertussis vaccine, adsorbed Kandi Luther MD Work Phone: [facility] 05-16-2021 influenza, injectabl e, quadrivalent, preservative free Lisa JARQUIN Work Phone: [facility] 03-25-2021 Human Papillomavirus 9-valent vaccine Lisa Keilin CABLE TECHNICIAN-ENROLLED AGENT Work Phone: [facility] 10-22-2020 Human Papillomavirus 9-valent vaccine Lisa Keilin CABLE TECHNICIAN-ENROLLED AGENT Work Phone: [facility] 10-22-2020 meningococcal polysaccharide (groups A, C, Y and W-135) diphtheria toxoid conjugate vaccine (MCV4P) Lisa Pericoilin CABLE TECHNICIAN-ENROLLED AGENT Work Phone: [facility] 04-04-2020 influenza, injectabl e, quadrivalent, preservative free Lisa Keilin CABLE TECHNICIAN-ENROLLED AGENT Work Phone: [facility] 04-10-2019 influenza, injectabl e, quadrivalent, preservative free Lisa Keilin CABLE TECHNICIAN-ENROLLED AGENT Work Phone: [facility] 04-15-2018 influenza, injectabl e, quadrivalent, preservative free Lisa Keilin CABLE TECHNICIAN-ENROLLED AGENT Work Phone: [facility] 04-27-2017 influenza, injectabl e, quadrivalent, preservative free Lisa Keilin CABLE TECHNICIAN-ENROLLED AGENT Work Phone: [facility] 05-07-2016 influenza, injectabl e, quadrivalent, preservative free Lisa Keilin CABLE TECHNICIAN-ENROLLED AGENT Work Phone: [facility] 05-07-2016 influenza, injectable,quadrivalent, preservative free, pediatric Lisa Keilin CABLE TECHNICIAN-ENROLLED AGENT Work Phone: [facility] 03-20-2015 influenza, injectabl e, quadrivalent, preservative free Lisa Keilin CABLE TECHNICIAN-ENROLLED AGENT Work Phone: [facility] 03-20-2015 influenza, seasonal, injectable Lisa Keilin CABLE TECHNICIAN-ENROLLED AGENT Work Phone: [facility] 03-20-2015 meningococcal polysaccharide (groups A, C, Y and W-135) diphtheria toxoid conjugate vaccine (MCV4P) Lisa [facility] Work Phone: [facility] 03-20-2015 tetanus toxoid, redu gaston diphtheria toxoid, and acellular pertussis vaccine, adsorbed [facility] Work Phone: [facility] 05-09-2014 influenza, injectabl e, quadrivalent, preservative free [facility] Work Phone: [facility] 05-09-2014 influenza, seasonal, injectable [facility] Work Phone: [facility] 05-12-2013 influenza, injectabl e, quadrivalent, preservative free [facility] Work Phone: [facility] 04-27-2012 influenza virus vacc ine, split virus (incl. purified surface antigen) [facility] Work Phone: [facility] 04-27-2012 influenza, seasonal, injectable, preservative free [facility] Work Phone: [facility] 04-14-2011 influenza virus vacc ine, split virus (incl. purified surface antigen) [facility] Work Phone: [facility] 04-14-2011 influenza, seasonal, injectable, preservative free [facility] Work Phone: [facility] 05-12-2010 influenza virus vacc ine, split virus (incl. purified surface antigen) [facility] Work Phone: [facility] 05-12-2010 influenza, seasonal, injectable, preservative free [facility] Work Phone: [facility] 08-25-2009 novel influenza-H1N1 -09, preservative-free, injectable [facility] Work Phone: [facility] 06-17-2009 novel influenza-H1N1 -09, preservative-free, injectable Lisa Schmid CABLE TECHNICIAN-ENROLLED AGENT Work Phone: [facility] 03-24-2009 influenza, seasonal, injectable, preservative free Lisa Schmid CABLE TECHNICIAN-ENROLLED AGENT Work Phone: [facility] 08-27-2008 diphtheria, tetanus toxoids and acellular pertussis vaccine Lisa Pericoilin CABLE TECHNICIAN-ENROLLED AGENT Work Phone: [facility] 08-27-2008 diphtheria, tetanus toxoids and acellular pertussis vaccine, unspecified formulation Lisa Binu CABLE TECHNICIAN-ENROLLED AGENT Work Phone: [facility] 08-27-2008 measles, mumps and rubella virus vaccine Lisa Pericoilin CABLE TECHNICIAN-ENROLLED AGENT Work Phone: [facility] 08-27-2008 poliovirus vaccine, inactivated Lisa Schmid CABLE TECHNICIAN-ENROLLED AGENT Work Phone: [facility] 08-27-2008 varicella virus vaccine Lisa Binu CABLE TECHNICIAN-ENROLLED AGENT Work Phone: [facility] 05-14-2008 influenza virus vacc ine, unspecified formulation Lisa Binu CABLE TECHNICIAN-ENROLLED AGENT Work Phone: [facility] 05-14-2008 influenza virus vacc ine, whole virus Lisa marietta CABLE TECHNICIAN-ENROLLED AGENT Work Phone: [facility] 04-20-2007 influenza virus vacc ine, whole virus Lisa ilin CABLE TECHNICIAN-ENROLLED AGENT Work Phone: [facility] 04-03-2007 hepatitis A vaccine, pediatric/adolescent dosage, 2 dose schedule Lisa Pericoilin CABLE TECHNICIAN-ENROLLED AGENT Work Phone: [facility] 09-21-2006 hepatitis A vaccine, pediatric/adolescent dosage, 2 dose schedule Lisa Pericoilin CABLE TECHNICIAN-ENROLLED AGENT Work Phone: [facility] 05-07-2005 influenza virus vacc ine, unspecified formulation Lisa Pericoilin CABLE TECHNICIAN-ENROLLED AGENT Work Phone: [facility] 05-07-2005 influenza virus vacc ine, whole virus Lisa Schmid [facility] Work Phone: [facility] 12-08-2004 diphtheria, tetanus toxoids and acellular pertussis vaccine Lisa Schmid [facility] Work Phone: [facility] 12-08-2004 diphtheria, tetanus toxoids and acellular pertussis vaccine, unspecified formulation [facility] 12-08-2004 haemophilus influenz ae type b vaccine, PRP-T conjugate Lisa [facility] Work Phone: [facility] 12-08-2004 pneumococcal conjuga te vaccine, 7 valent Lisa [facility] Work Phone: [facility] 10-07-2004 measles, mumps and rubella virus vaccine Lisa Schmid [facility] Work Phone: [facility] 10-07-2004 varicella virus vaccine Lisa [facility] Work Phone: [facility] 06-22-2004 influenza virus vacc ine, unspecified formulation Lisa Schmid [facility] Work Phone: [facility] 06-22-2004 influenza virus vacc ine, whole virus Lisa Schmid [facility] Work Phone: [facility] 06-22-2004 [facility], [facility] 04-16-2004 influenza virus vacc ine, unspecified [facility] 04-16-2004 influenza virus vacc ine, whole virus [facility] 03-18-2004 diphtheria, tetanus toxoids and acellular pertussis vaccine Lisa Schmid [facility] Work Phone: [facility] 03-18-2004 haemophilus influenz ae type b conjugate and Hepatitis B vaccine Lisa Schmid [facility] Work Phone: [facility] 03-18-2004 pneumococcal conjuga te vaccine, 7 valent Lisa Schmid CABLE TECHNICIAN-[facility] Work Phone: [facility] 01-20-2004 diphtheria, tetanus toxoids and acellular pertussis vaccine Lisa Schmid [facility] Work Phone: [facility] 01-20-2004 diphtheria, tetanus toxoids and acellular pertussis vaccine, unspecified formulation Lisa Schmid [facility] Work Phone: [facility] 01-20-2004 haemophilus influenz ae type b conjugate and Hepatitis B vaccine Lisa marietta [facility] Work Phone: [facility] 01-20-2004 haemophilus influenz ae type b vaccine, conjugate unspecified formulation Lisa Kemarietta [facility] Work Phone: [facility] 01-20-2004 hepatitis B vaccine, pediatric or pediatric/adolescent dosage Lisa Schmid [facility] Work Phone: [facility] 01-20-2004 pneumococcal conjuga te vaccine, 7 valent Lisa Schmid [facility] Work Phone: [facility] 01-20-2004 poliovirus vaccine, inactivated Lisa Schmid [facility] Work Phone: [facility] 01-20-2004 poliovirus vaccine, unspecified formulation Lisa [facility] Work Phone: [facility] 2003 diphtheria, tetanus toxoids and acellular pertussis vaccine Lisa Schmid [facility] Work Phone: [facility] 2003 diphtheria, tetanus toxoids and acellular pertussis vaccine, unspecified formulation Lisa [facility] Work Phone: [facility] 2003 haemophilus influenz ae type b vaccine, conjugate unspecified formulation Lisa Schmid CABLE TECHNICIAN-[facility] Work Phone: [facility] 2003 haemophilus influenz ae type b vaccine, PRP-T conjugate Lisa Schmid [facility] Work Phone: [facility] 2003 hepatitis B vaccine, pediatric or pediatric/adolescent dosage Lisa Schmid CABLE TECHNICIAN-[facility] Work Phone: [facility] 2003 pneumococcal conjuga te vaccine, 7 valent Lisa Schmid CABLE TECHNICIAN-[facility] Work Phone: [facility] 2003 poliovirus vaccine, inactivated Lisa Schmid CABLE TECHNICIAN-[facility] Work Phone: [facility] 2003 poliovirus vaccine, unspecified formulation Lisa marietta [facility] Work Phone: [facility] Payers Date Payer Category Payer Unknown [id number] 2014 Medicaid [employer] [id number] 2014-Present [phone] [address] [place] [address] Medicaid [id number] 2014 Medicaid [id number] 2014 Medicaid [id number] 2013 Unknown [id number] 2003 Unknown [id number] 2003 Unknown [id number] 2003 Unknown [id number] 2003 Unknown [id number] 2003 Unknown [id number] 2003 Unknown [id number] 2003 Unknown [id number] 2003 Unknown [id number] 2003 Unknown [id number] 2003 Unknown [id number] 2003 Unknown [id number] Social History Date Type Detail Facility Start: 04-10-2019 End: 03-17-2022 Tobacco smoking status NHIS Never smoked tobacco [facility] Start: 04-10-2019 End: 03-17-2022 Tobacco use and exposure Smokeless tobacco non-user [facility] Start: 08-08-2012 End: 03-17-2022 Tobacco Comment outside smokers [facility] Start: 2003 Sex Assigned At Not on file A [facility] Start: 09-12-2021 End: 05-17-2022 Exposure to SARS-CoV-2 (event) Not sure [facility] Start: 09-02-2021 End: 04-06-2023 Alcohol intake Current non-drinker of alcohol (finding) [facility] Start: 11-23-2021 Alcohol intake Lifetime non-d viktoria (finding) [employer] Work Phone: Start: 11-22-2021 History SDOH Alcohol Frequency 1 [facility] Work Phone: Start: 04-10-2019 End: 07-18-2023 Cigarette pack-years [facility] Work Phone: Sex Assigned At Female [facility] Start: 01-10-2023 End: 07-18-2023 Tobacco use panel [facility] Work Phone: National Score (1-10 0), lower number is lower risk 50 [facility] Work Phone: Medical Equipment Procedure Code Equipment Code Equipment Origin al Text Equipment Identifier Dates Arthrex Sm Joint Suturetak [id number] Start: 04-13-2016 Ar[facility]rex Sm Joint Suturetak [id number] Start: 03-28-2018 Gralverto Nolasco don Frzn 20cm [id number] Start: 06-08-2022 Arth Mpfl Tightr ope Imp Sys [id number] Start: 06-08-2022 Goals Date Patient Goal Desired Activity /State Personal health goal Functional Status Date Assessment Result Facility 10-02-2022 Functional Status Ambulating in cervantes, Ambulating in room, Awake, Bathroom privileges [facility] 10-02-2022 Functional Status Standard Safet y ID band on, Allergy Band on, Call device within reach, Bed in low position, Wheels locked, Upper/Half-Length side-rails up, personal items within reach, Visitor at bedside [facility] Mental Status Date Assessment Result Facility 10-02-2022 Mental Status Orientation Oriented x 4 [facility] 10-02-2022 Mental Status [facility] Clinical Notes 10-05-2021 to 07-18-2023 Martell Katz DO - 04/06/2023 4:25 PM EDTPatient Dhruv Brice APRN.ENROLLED AGENT - 02/08/2023 6:31 PM EDTTelephone Encounter - Bria Arevalo APRN.ENROLLED AGENT - 11/23/2022 5:23 PM EDT Note Date & Type Note Facility 07-18-2023 Note CHIEF COMPLAINT: Toe fracture HISTORY OF PRESENT ILLNESS: Mesha presents today for evaluation of a toe fracture sustained at the end of May when she accidentally kicked her boyfriend in the ankle while they were playing with a ball. She was initially seen at an outside facility where x-rays were obtained and she was placed into a postop shoe. She followed up at an urgent care a couple weeks later and new x-rays were obtained which showed some displacement of her fracture site. She was referred for orthopedic evaluation. 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 They require her to wear something that is not open toed. She has been wearing an old walking boot, which has been pushing into her leg and causing some discomfort. No other concerns today. PHYSICAL EXAMINATION: Mesha is a well-nourished, well-developed 17-year-old female in no apparent distress. Upon examination of the left lower extremity, her skin is intact. There is no erythema, swelling, ecchymosis or bruising. There is no rotational deformity or malalignment of her toe. She does still have some tenderness over the proximal phalanx. Nontender over the distal portion of this toe, the remainder of the foot. The left lower extremity is neurovascularly intact distally. IMAGING: Views of the left foot from 06/28/2023 were reviewed in the office today. New x-rays were obtained and reviewed today. Please see Dr. Patel's dictation for official interpretation. DIAGNOSIS AND IMPRESSION: Subacute left third toe proximal phalanx fracture DISCUSSION AND TREATMENT PLAN: This patient was seen in conjunction with Dr. Patel, who also personally examined Mesha and reviewed imaging at today's office visit. Mesha is doing very well overall today. We reviewed several treatment options in the office today. Ultimately she was provided with a new walking boot to provide some protection of her toe as it finishes healing. If her course instructors do not allow her to participate with the walking boot on, it would be reasonable for her to begin wearing a supportive, stiff soled shoe as well. She can follow-up as needed. [facility] 04-09-2023 Note HNO ID: [id number] Author: Note, Interface Service: ? Author Type: ? Type: Progress Notes Filed: 04/09/2023 5:29 AM Note Text: Epic Scheduled Downtime: 04/09/2023 1:00:00 AM to 04/09/2023 1:28:00 AM [facility] 04-09-2023 Note HNO ID: [id number] Author: Note, Interface Service: ? Author Type: ? Type: Progress Notes Filed: 04/09/2023 2:58 AM Note Text: [facility] Scheduled Downtime: 04/09/2023 1:00:00 AM to 04/09/2023 1:28:00 AM [facility] 04-06-2023 Note HNO ID: [id number] Author: Martell Katz, Service: ? Author Type: Physician Type: Progress Notes Filed: 04/07/2023 11:20 AM Note Text: 17 year old female presenting for multiple symptoms I have fully reviewed the past medical, surgical, social and family history and updated the Histories section of [facility]. Sore throat headache rhinorrhea sneezing constipation [...] foot TONSILLECTOMY HX Social history reviewed in [facility]. REVIEW OF SYSTEMS: Per hpi [...] with plan, all concerns and questions addressed. [facility] 04-06-2023 History of Presen t illness Narrative 17 year old female presenting for multiple symptoms I have fully reviewed the past medical, surgical, social and family history and updated the Histories section of [employer]. Sore throat headache rhinorrhea sneezing constipation couple [...] foot TONSILLECTOMY HX Social history reviewed in [employer]. REVIEW OF SYSTEMS: Per hpi PHYSICAL EXAMINATION: [...] and questions addressed. documented in this encounter [facility] 03-13-2023 Note HNO ID: [id number] Author: Note, Interface Service: ? Author Type: ? Type: Progress Notes Filed: 03/13/2023 3:08 AM Note Text: Epic Scheduled Downtime: 03/13/2023 1:02:01 AM to 03/13/2023 2:21:01 AM [facility] 03-12-2023 Note HNO ID: [id number] Author: Note, Interface Service: ? Author Type: ? Type: Progress Notes Filed: 03/12/2023 5:01 AM Note Text: Epic Scheduled Downtime: 03/12/2023 1:00:00 AM to 03/12/2023 4:45:00 AM [facility] 02-15-2023 Note CLINICAL HISTORY: [...] by: Dr. Yaya Sanabria at 02/15/2023 13:29 [facility] 02-15-2023 Note IMPRESSION: 1. Normal ultrasound and doppler evaluation of the uterus and adnexa. 2. Ovary sizes are near the upper end of the normal range, but not significantly asymmetric. Numerous follicles seen throughout both ovaries. Created by resident and approved This report has been created using voice recognition software [facility] 02-15-2023 Note IMPRESSION: 1. Normal ultrasound and doppler evaluation of the uterus and adnexa. 2. Ovary sizes are near the upper end of the normal range, but not significantly asymmetric. Numerous follicles seen throughout both ovaries. Created by resident and approved This report has been created using voice recognition software [facility] 02-08-2023 Note HNO ID: [id number] Author: Dhruv Palacios APRN.ENROLLED AGENT Service: ? Author Type: Nurse Practitioner Type: [...] the patient is (more content not included)... [facility] 02-08-2023 Instructions Dhruv Palacios APRN.ENROLLED AGENT - 02/08/2023 6:44 PM EDT How to [...] concerning to you. documented in this encounter [facility] 02-08-2023 History of Presen t illness Narrative [...] of care. This note was generated using [employer] software. It may contain errors in wording, punctuation, or spelling. Dhruv Palacios APRN.PIERO documented in this encounter [facility] 01-24-2023 Note CHIEF COMPLAINT: Lef t knee [...] back as needed. They are in agreement. [facility] 11-23-2022 Miscellaneous Notes Tu sent to pharmacy. She may need to be evaluated in the office if she continues to have symptoms. Bria Arevalo APRN.CNP documented in this encounter [facility] 10-02-2022 Note Discharge Instructions Thank you for allowing [facility] to assist you with your healthcare needs. [...] to receive it can visit one of [facility] vaccine clinics. There are many vaccine clinic locations within the [facility]. For locations and available times, please visit [email or web address] It is important to note that some COVID mobile vaccine clinics are held outdoors and may be canceled in rainy or stormy conditions. To learn more about pediatric vaccinations (ages 5-11), we invite you to visit the [facility] webpage. [email or web address] [email or web address] [email or web address] To learn more about the COVID-19 vaccine, we invite you to visit the CDC website for a list of frequently asked questions. https://www.cdc.gov/coronavirus/ 2019-ncov/vaccines/faq.html [facility] Patient Portal Access Instructions: Stay connected with your healthcare team and access your personal medical information anytime with the [facility] Patient Portal. If you would like a full copy of your medical records please contact the [facility] Medical Records Department Tuesday through Tuesday between 8a.m. and 4:30p.m. Please follow the directions below to access the portal: 1.Access the email account you provided upon registration to the hospital.2.Look for an invitation email from [facility].3.Open the email and access the invitation link: Accept Invitation to [facility]4.Fill in the required eden to create your account. Sign into [email or web address] with your username and password that you [...] you will allow to register on the [facility] Patient Portal for access to your information. You can also access the [employer] Patient Portal on the [employer] stephanie. Simply click on Health Records under Health Data and then click on the [employer] logo. HOW TO SAFELY DISPOSE OF PRESCRIPTION [...] Call your local pharmacy or go to http://bit.Bugsnag/3C9Ff4c to find one close to you.3.Make use of household items: Use cat litter or old coffee grounds to dispose medications if other options are not available. Mix your drugs with these household products, seal them in an airtight container and throw it into the garbage. Call [facility]: [phone] to be sure your drugs can be [...] been reviewed and explained to me and IENZO CAILYN A understand my current condition and have read and understand these discharge instructions. I have received a written copy of the plan/instructions. If I have questions, I am aware that I should contact my doctor. 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 Author Type: Accounting Administrator Type: Progress Notes Filed: 01/25/2023 7:02 PM Note Text: 01/25/2023 [facility]TS [facility]ER[facility] PHYSICAL THERAPY DISCONTINUANCE [...] Time Minutes (timed/untimed): 45 Jesus Sanchez PTA [facility] 08-04-2022 Note HNO ID: [id number] Author: Bria Arevalo APRN.ENROLLED AGENT Service: ? Author Type: Nurse Practitioner Type: [...] OB History No obstetric history on file. 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 Bria Arevalo APRN.ENROLLED AGENT I spent a total of 20 minutes on the date of the service which included preparing to see the patient, [id number] patient care, completing clinical documentation, obtaining and/or reviewing separately obtained history, performing a medically appropriate examination, and counseling and educating the patient/family/caregiver. [facility] 08-04-2022 History of Presen t illness [...] OB History No obstetric history on file. 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 Bria Arevalo APRN.CNP I spent a total of 20 minutes on the date of the service which included preparing to see the patient, [id number] patient care, completing clinical documentation, obtaining and/or reviewing separately obtained history, performing a medically appropriate examination, and counseling and educating the patient/family/caregiver. documented in this encounter [facility] 07-28-2022 Note HNO ID: [id number] Author: Deborah Davenport PT Service: ? Author Type: Physical Therapist Type: Progress Notes Filed: 07/28/2022 7:06 PM Note Text: Episode Visit Count: 1 Start of Care Date: 07/28/22 Onset Date: 05/14/22 Plan of Care Certification Date: 07/28/22 Next Certification Due Date: 10/26/22 Patient Identified by Name and Date of : Yes REHABILITATION AND SPORTS THERAPY PHYSICAL THERAPY EVALUATION PLAN OF CARE: Assessment: Mesha A Enzo presents with diagnosis of post MPFL [...] of Care: created on 07/28/22 through 10/26/22 [place] in home exercise program. Patient will decrease [...] as gerardo) Planned Treatment Interventions: Therapeutic exercise (50823), Manual therapy (63471), Therapeutic activities (11344), Gait Training (84945), E-Stim Attended/TENS (81527) PLAN FOR NEXT VISIT: Progress QS, hold [...] Level of Education: High School Preferred Language: Mongolian Right or Left Handed: Right Employment: (recently was working at [employer] until 2 prior injuries) Hobbies / Interests: [...] of day) Frequency: (more content not included)... [facility] 07-28-2022 History of Presen [...] of Care: created on 07/28/22 through 10/26/22 [place] in home exercise program. Patient will decrease [...] as gerardo) Planned Treatment Interventions: Therapeutic exercise (05434), Manual therapy (64746), Therapeutic activities (87021), Gait Training (29846), E-Stim Attended/TENS (04064) PLAN FOR NEXT VISIT: Progress QS, hold [...] Level of Education: High School Preferred Language: Mongolian Right or Left Handed: Right Employment: (recently was working at [employer] until 2 prior injuries) Hobbies / Interests: [...] Deborah Davenport PT documented in this encounter [facility] 07-14-2022 Note COVID 19 RESULT: SARS-CoV-2 (Agent of COVID-19) Not Detected by RT-PCR or equivalent method. This test has been authorized by FDA under an Emergency Use Authorization (EUA). INFLUENZA A PCR: Negative for Influenza A by RT-PCR INFLUENZA B PCR: Negative for Influenza B by RT-PCR RSV PCR: Negative for Respiratory Syncytial Virus (RSV) by PCR [facility] Diagnosis Abdominal pain, generalized Loss of weight Nausea and vomiting, intractability of vomiting not specified, unspecified vomiting type documented in this encounter [facility] note* Diagnosis Near syncope- Primary Syncope and collapse Nausea Nausea alone Eating disorder, unspecified type documented in this encounter [facility] Work Phone: Evaluation note* Diagnosis Biliary dyskinesia- Primary Other specified disorder of gallbladder Pre-operative examination Preoperative examination, unspecified documented in this encounter [facility] note* Diagnosis Surveillance for control, oral contraceptives Surveillance of previously prescribed contraceptive pill [facility] Diagnosis Hypertrophy of labia minora- Primary Hypertrophy of labia [facility]* Diagnosis Closed dislocation of left patella, initial encounter documented in this encounter [facility] note* Diagnosis Decreased strength involving knee joint- Primary Other musculoskeletal symptoms referable to limbs Acute pain of left knee Closed dislocation of left patella, subsequent encounter Status post arthroscopy of knee Other postprocedural status Abnormality of gait [facility]* Diagnosis General counseling and advice for contraceptive management- Primary Other general counseling and advice for contraceptive management Late menses Other disorder of menstruation and other abnormal bleeding from female genital tract [facility]* Diagnosis Posture abnormality- Primary Abnormal posture [facility]* Diagnosis Suspected COVID-19 virus infection- Primary Malaise and fatigue Other malaise and fatigue [facility] Suprapubic abdominal pain Abdominal pain, other specified site [facility] Acute constipation- Primary Unspecified constipation Viral syndrome Unspecified viral infection, in conditions classified elsewhere and of unspecified site documented in this encounter [facility] Discharge instructions* Attachments The following attachments cannot be sent through Care Everywhere. * Lightheadedness or Faintness (Mongolian) * Nausea and Vomiting (Mongolian) documented in this [facility] Work Phone: Hospital Discharge instructions No data available for this section [facility] Reason for visit Narrative* Auth/Cert Specialty Diagnoses / Procedures Referred By Jovany nguyen Referred To Contact Diagnoses Biliary dyskinesia Biliary dyskinesia [K82.8] Procedures OR LAP,CHOLECYSTECTOMY LAPAROSCOPIC CHOLECYSTECTOMY WITH CHOLANGIOGRAM ENDOSCOPY (UPPER AND COLONOSCOPY) [place] [address] Referral ID Status Reason Start Date Expiration Date Visits Re quested Visits Authorized [id number] 1 1 [facility] Summary Purpose Family History No Family History Records FoundNo Family History Records FoundNo Family History Records FoundNo Family History Records FoundNo Family History Records FoundNo Family History Records FoundNo Family History Records FoundNo Family History Records Found Advance Directives No Advanced Directives Records FoundDocuments on File Type Date Recorded Patient 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 Systems Security Analyst Expl anation Advance Directives and Living Will Power of Well Logging Operator Mud Analysis Documents on File Type Date Recorded Patient Information Systems Security Analyst Expl anation Advance Directive(s) 12/21/2020 1:01 PM Advance Directive(s) 04/19/2017 9:24 PM Documents on File Type Date Recorded Patient Information Systems Security Analyst Expl anation Advance Directive(s) 12/08/2021 10:38 PM Advance Directive(s) 11/06/2021 6:25 PM Advance Directive(s) 12/21/2020 1:01 PM Advance Directive(s) 04/19/2017 9:24 PM Reason for Referral Specialty Diagnoses / Procedures Referred By Jovany nguyen Referred To Contact Dietitian Registered / Obstetrics and Gynecology Diagnoses Eating disorder, unspecified type Doc Go MD [facility] [place] [address] [place] [address] Referral ID Status Reason Start Date Expiration Date V isits Requested Visits Authorized Open Specialty Services Required 11/23/2021 11/23/2022 1 1 Scheduling Instructions [facility] - [address] [facility] [address] [place] [address] Specialty Diagnoses / Procedures Referred By Contac t Referred To Contact Family Medicine Diagnoses Near syncope Nausea Doc Go MD [address] [place] [address] [facility] [address] [place] [address] Referral ID Status Reason Start Date Expiration Date V isits Requested Visits Authorized [id number] Open Specialty Services Required 11/23/2021 11/23/2022 1 1 Scheduling Instructions [address] [address] Specialty Diagnoses / Procedures Referred By Contac t Referred To Contact Radiology Diagnoses Closed dislocation of left patella, initial encounter Procedures MRI KNEE JOINT without contrast Left Yary Alvarado MD [address] [facility] [address] [place] [address] Referral ID Status Reason Start Date Expiration Date Visits Re quested Visits Authorized [id number] Closed 05/17/2022 07/16/2022 1 1 Health Concerns Infection Onset Date Last Indicated Resolved Time COVID-19 Rule-Out 02/08/2023 02/08/2023 02/09/2023 5:10 AM EDT Additional Source Comments INFORMATION SOURCE (unrecogn ized section and content) DATE CREATED AUTHOR AUTHOR'S ORGANIZ ATION 02/01/2021 [facility] DATE CREATED AUTHOR AUTHOR'S ORGANIZ ATION 11/25/2021 [facility] DATE CREATED AUTHOR AUTHOR'S ORGANIZ ATION 10/08/2022 [facility] ([place]) DATE CREATED AUTHOR AUTHOR'S ORGANIZ ATION 04/08/2023 [facility] DATE CREATED AUTHOR AUTHOR'S ORGANIZ ATION 04/10/2023 [facility] DATE CREATED AUTHOR AUTHOR'S ORGANIZ ATION 06/29/2023 [facility] DATE CREATED AUTHOR AUTHOR'S ORGANIZ ATION 07/24/2023 [facility] Care Teams (unrecognized sec tion and content) Quality Internship Relationship Specialty Start Date End Date Rory Gaspar MD [address] [place] [address] PCP - General Pediatrics 10/28/14 ([place]), [address] [place] [phone] 12/25/10 Rory Gaspar MD [address] [place] [address] Attending Physician Pediatrics 10/28/13 [employer] Internship Relationship Specialty Start Date End Date Rory Gaspar [address] [place] [address] PCP - General Pediatrics 02/23/18 Jose Patel [address] [facility] [address] [place] [address] Orthopaedics Pediatrics 02/23/18 Quality Internship Relationship Specialty Start Date End Date Rory Gaspar MD [address] [place] [address] PCP - General Pediatrics 10/28/14 ([place]), [facility] [address] [place] [phone] 12/25/10 Rory Gaspar MD [address] [place] [address] Attending Physician Pediatrics 10/28/13 Quality Internship Relationship Specialty Start Date End Date Amparo Rory Jang [address] [place] [address] PCP - General Pediatrics 02/23/18 Mario Jose Nguyen [address] [facility] [address] [place] [address] Orthopaedics Pediatrics 02/23/18 Quality Internship Relationship Specialty Start Date End Date Amparo Osiris Jangrina [address] [facility] [place] [address] PCP - General Pediatrics 02/23/18 MarioJose [address] [facility] [address] [place] [address] Orthopaedics Pediatrics 02/23/18 Quality Internship Relationship Specialty Start Date End Date Rory Gaspar [address] [place] [address] PCP - General Pediatrics 02/23/18 Mario Jose Nguyen [address] [facility] [address] [facility] [address] [place] [address] Orthopaedics Pediatrics 02/23/18 Quality Internship Relationship Specialty Start Date End Date Amparo Jang Rory [address] [place] [address] PCP - General Pediatrics 02/23/18 Mario Jose T [address] [facility] [address] [facility] [address] [place] [address] Orthopaedics Pediatrics 02/23/18 Quality Internship Relationship Specialty Start Date End Date Rory Gaspar MD [address] [place] [address] PCP - General Pediatrics 10/28/14 ([place])[facility] [place] [address] 12/25/10 Rory Gaspar MD [address] [place] [address] Attending Physician Pediatrics 10/28/13 Quality Internship Relationship Specialty Start Date End Date Amparo Jang Rory [address] [place] [address] PCP - General Pediatrics 02/23/18 Jose Patel [address] [facility] [address] [place] [address] Orthopaedics Pediatrics 02/23/18 Quality Internship Relationship Specialty Start Date End Date Rory Gaspar [address] [place] [address] PCP - General Pediatrics 02/23/18 Jose Patel [address] [facility] [address] [place] [address] Orthopaedics Pediatrics 02/23/18 Quality Internship Relationship Specialty Start Date End Date Rory Gaspar [address] [place] [address] PCP - General Pediatrics 02/23/18 Jose Patel [address] [facility] [address] [place] [address] Orthopaedics Pediatrics 02/23/18 Quality Internship Relationship Specialty Start Date End Date Rory Gaspar [address] [place] [address] PCP - General Pediatrics 02/23/18 Jose Patel [address] [facility] [address] [place] [address] Orthopaedics Pediatrics 02/23/18 Quality Internship Relationship Specialty Start Date End Date Rory Gaspar [address] [place] [address] PCP - General Pediatrics 02/23/18 Jose Patel [address] [facility] [address] [place] [address] Orthopaedics Pediatrics 02/23/18 Quality Internship Relationship Specialty Start Date End Date Rory Gaspar MD [address] [place] [address] PCP - General Pediatrics 10/28/14 ([place]), [place] [address] [place] [phone] 12/25/10 Rory Gaspar MD [address] [place] [address] Attending Physician Pediatrics 10/28/13 Quality Internship Relationship Specialty Start Date End Date Rory Gaspar [address] [place] [address] PCP - General Pediatrics 02/23/18 Jose Patel [address] [facility] [address] [place] [address] Orthopaedics Pediatrics 02/23/18 Quality Internship Relationship Specialty Start Date End Date Veronika Farley DO [address] [place] [address] PCP - General Pediatrics 07/18/23 ([place]), [place] [address] [place] [id number] 12/25/10 Rory Gaspar MD [address] [place] [address] Attending Provider Pediatrics 10/28/13 Source Comments (unrecognize d section and content) In the event this informatio n is protected by the Federal Confidentiality of Alcohol and Drug Abuse Patient Records regulations: The Federal rules restrict any use of the information to criminally investigate or prosecute any alcohol or drug abuse patient.[facility] FoundationIn the event this information is protected by the Federal Confidentiality of Alcohol and Drug Abuse Patient Records regulations: The Federal rules restrict any use of the information to criminally investigate or prosecute any alcohol or drug abuse patient.[facility] FoundationIn the event this information is protected by the Federal Confidentiality of Alcohol and Drug Abuse Patient Records regulations: The Federal rules restrict any use of the information to criminally investigate or prosecute any alcohol or drug abuse patient.[facility] FoundationIn the event this information is protected by the Federal Confidentiality of Alcohol and Drug Abuse Patient Records regulations: The Federal rules restrict any use of the information to criminally investigate or prosecute any alcohol or drug abuse patient.[facility] FoundationIn the event this information is protected by the Federal Confidentiality of Alcohol and Drug Abuse Patient Records regulations: The Federal rules restrict any use of the information to criminally investigate or prosecute any alcohol or drug abuse patient.[facility] FoundationIn the event this information is protected by the Federal Confidentiality of Alcohol and Drug Abuse Patient Records regulations: The Federal rules restrict any use of the information to criminally investigate or prosecute any alcohol or drug abuse patient.[facility] FoundationIn the event this information is protected by the Federal Confidentiality of Alcohol and Drug Abuse Patient Records regulations: The Federal rules restrict any use of the information to criminally investigate or prosecute any alcohol or drug abuse patient.[facility] FoundationIn the event this information is protected by the Federal Confidentiality of Alcohol and Drug Abuse Patient Records regulations: The Federal rules restrict any use of the information to criminally investigate or prosecute any alcohol or drug abuse patient.[facility] FoundationIn the event this information is protected by the Federal Confidentiality of Alcohol and Drug Abuse Patient Records regulations: The Federal rules restrict any use of the information to criminally investigate or prosecute any alcohol or drug abuse patient.[facility] FoundationIn the event this information is protected by the Federal Confidentiality of Alcohol and Drug Abuse Patient Records regulations: The Federal rules restrict any use of the information to criminally investigate or prosecute any alcohol or drug abuse patient.[facility] FoundationIn the event this information is protected by the Federal Confidentiality of Alcohol and Drug Abuse Patient Records regulations: The Federal rules restrict any use of the information to criminally investigate or prosecute any alcohol or drug abuse patient.[facility] FoundationIn the event this information is protected by the Federal Confidentiality of Alcohol and Drug Abuse Patient Records regulations: The Federal rules restrict any use of the information to criminally investigate or prosecute any alcohol or drug abuse patient.[facility] Reason for Visit (unrecogniz ed section and content) Reason Onset Date Comments Refill Request 12/16/2021 Reason Comments Consult Reason Comments surgery authorization Reason Comments Schedule Surgery Specialty Diagnoses / Procedures Referred By Contac t Referred To Contact Radiology Diagnoses Closed dislocation of left patella, initial encounter Procedures MRI KNEE JOINT without contrast Left Yary Alvarado MD [address] [place] [address] Referral ID Status Reason Start Date Expiration Date Visits Re quested Visits Authorized [id number] Closed 05/17/2022 07/16/2022 1 1 Reason Comments PT Eval Specialty Diagnoses / Procedures Referred By Contac t Referred To Contact Physical Therapy / PHYSICAL THERAPY Diagnoses L knee Procedures NEW RS PT ORTH Ciro Sawant (Lachelle) (Hist), LACHELLE [address] [place] [address] Deborah Davenport PT Referral ID Status Reason Start Date Expiration Date V isits Requested Visits Authorized [id number] Pending Review 07/28/2022 06/24/2023 1 1 Reason Comments Opened In Error Specialty Diagnoses / Procedures Referred By Contac t Referred To Contact Physical Therapy / PHYSICAL THERAPY Diagnoses L knee Procedures NEW RS PT ORTH Ciro Sawant, LACHELLE-C [address] [address] Deborah Davenport, PT Referral ID Status Reason Start Date Expiration Date Visits Re quested Visits Authorized [id number] Closed 07/28/2022 10/26/2022 24 24 Reason Comments [...] 6 HOURS, 360 doses, First dose on Tue11/30/21 at 1630, Last dose on Tue02/28/22 at 1400 2017 (Given - Provider: Shira Oakley RN) 0154 (Given - Provider: Shira Oakley RN)0837 (Given - Provider: Raj Kowalski RN) ketorolac (TORADOL) 30 MG/ML Injection 13.2 mg 13.2 mg (1.01 mg/kg/DAY, rounded from 13.075 mg = 0.25 mg/kg/DOSE 52.3 kg), Intravenous, EVERY 6 HOURS, 12 doses, First dose on Tue11/30/21 at 1630, Last dose on Tue12/03/21 at 1100 1759 (Not Given - Provider: Michelle White RN - Reason: Contraindicated - Comment: pt given last toradol dose at 1450-too soon for next dose)2310 (Given - Provider: Sihra Oakley RN) 0511 (Given - Provider: Shira [...] 1630, Last dose on 02/28/22 at 1400 215 (Given - Provider: Shira Oakley RN) 06 (Given - Provider: Shira Oakley RN) venlafaxine (EFFEXOR-XR) XR capsule 37.5 mg 37.5 mg (0.717 mg/kg/DAY), Oral, DAILY, 90 doses, First dose on 11/30/21 at 2100, Last dose on 02/27/22 at 2100, Do not crush 2151 (Given - Provider: Shira Oakley RN) Continuous [...] Oakley RN)192 (Restarted - Provider: Shira Oakley RN)194 (Paused - Provider: Shira Oakley RN)194 (Restarted - Provider: Shira Oakley RN)1952 (Paused [...] For 90 days, For mixture of medications 215 (Given - Provider: Shira Oakley RN)2310 (Given - Provider: Shira Oakley RN) 0511 (Given - Provider: Shira Oakley RN)0602 (Given - Provider: Shira Oakley RN) NaCl [...] on Tue11/30/21 at 1628, For 90 days 215 (Push - Provider: Shira Oakley RN - [...] BE BASED ON THE PRIMARY CLINICAL RECORDS. [facility]. provides no warranty or guarantee of the accuracy or completeness of information in this document.
[2023-07-30] MEDS: Ipratropium/Albuterol Sulfate 3 ML AMPUL.NEB INHALATION (22:40)
[2023-07-30 22:41] VITALS: PULSE 88; RESP 14
[2023-07-30 22:55] LABS: Absolute Lymphocyte Count 3.18 X10^3/uL (0.83-4.51); Absolute Neutrophil Count 2.7 X10^3/uL (2.0-7.7); Basophil# 0.05 X10^3/uL; Basophil% 0.8 % (0-1); Eosinophil# 0.13 X10^3/uL; Hematocrit 40.6 % (37-47); Hemoglobin 12.9 g/dL (12.0-15.0); Lymphocyte # 3.18 X10^3/ul (0.83-4.51); Lymphocyte % 49.1 % (19-41); Mean Corp Hgb Conc 31.8 g/dL (32-36); Mean Corpuscular Hgb 29.2 pg (27.0-32.0); Mean Corpuscular Volume 91.9 fL (81-99); Mean Platelet Vol. 9.5 fl (6.2-12.0); Monocyte% 6.2 % (0-10); NRBC Flagged by Analyzer 0 % (0-5); Neutrophil # 2.71 X10^3/uL (2.7-7.7); Neutrophil % 41.7 % (47-70); Platelet Count 286 K/mm3 (150-450); RBC Distribution Width SD 43.8 fl (35.1-43.9); Red Blood Count 4.42 M/mm3 (4.2-5.4); White Blood Count 6.5 K/mm3 (4.4-11.0)
--- NOTE | 2023-07-30 23:00 | RAD_ITS ---
STUDY: X-RAY CHEST REASON FOR EXAM: Female, 17 years old. Dyspnea TECHNIQUE: PA and lateral views of the chest. COMPARISON: 05/13/2016. FINDINGS: The lungs are clear and expanded. There is no demonstrated pleural abnormality. Normal size heart. Normal mediastinum and delores. Normal visualized pulmonary arteries. Normal visualized aortic arch and descending thoracic aorta. Normal visualized thoracic spine. Normal visualized ribs, clavicles, and shoulders. Right upper quadrant surgical clips. RAD/Chest PA and Lateral IMPRESSION: Normal x-ray examination of the chest. Electronically Signed: Michaela Vick MD at 23:32 EST ,
[2023-07-30 23:09] LABS: Anion Gap 4 (5-15); BUN 9 mg/dL (7-18); BUN/Creat Ratio 12.7 RATIO (10-20); Calcium,Total 8.6 mg/dL (8.5-10.1); Chloride 110 mmol/L (98-107); Creatinine, Serum 0.71 mg/dL (0.55-1.02); EST Glomerular Filtration Rate 112 mL/min (>60); Est Glom Filt Rate - Afr Amer 135 mL/min (>60); Estimated Creatinine Clearance 119.31 ml/min; Glucose 73 mg/dL (74-106); Potassium 3.6 mmol/L (3.5-5.1); Sodium Level 140 mmol/L (136-145)
[2023-07-30 23:51] VITALS: BP 117/76; PULSE 86; RESP 21; O2SAT 97
== END 2023-07-30 23:52 | disposition home or self-care (01) ==
PROVIDERS: Emergency Provider Emergency Medicine; PCP Pediatrics; Visit Provider Emergency Medicine
DX: J06.9 Acute upper respiratory infection, unspecified (principal); R06.02 Shortness of breath
CPT/HCPCS: 71046; 80048; 85025; 87631; 94640; 99284; A4216

== ENCOUNTER 2023-10-28 12:38 | Day surgery (SDC) | payer MEDICAID, SELFPAY ==
--- NOTE | 2023-10-26 08:09 | PCM.HP.BLA ---
History and Physical Date of Admission: 10/28/23 Expand All Collapse AllExpand All by Default Pre-Op History and Physical ? HPI: The patient is a 18 year old female presenting for discussion regarding labial hypertrophy as well as a left groin cyst. Cyst has been present for few weeks has not drained. She is prone to them. Thought maybe it was due to shaving but has not shaved in a few weeks. No fevers. ? Pre-operative visit. She is scheduled for bilateral labioplasty, for symptomatic abial hypertrophy on 10/30/23. Procedure discussed along with risks, benefits and complications. Other alternatives discussed for management. Consent form signed? Yes. ? ? PAST MEDICAL HISTORY PAST MEDICAL HISTORY Diagnosis Date ? Concussion ? ? Constipation ? ? Insomnia ? ? Psychiatric disorder ? ? ? PAST SURGICAL HISTORY PAST SURGICAL HISTORY Procedure Laterality Date ? ADENOIDECTOMY HX ? ? ? CHOLECYSTECTOMY HX ? ? ? EXTRACTION ERUPTED TOOTH/EXR ? 04/2023 ? LAPAROSCOPY SURG CHOLECYSTECTOMY ? 11/30/2021 ? ORTHOPEDIC SURGERY HX Left ? ? foot ? ORTHOPEDIC SURGERY HX Right 2020 ? right knee ? ORTHOPEDIC SURGERY HX Left 05/2022 ? left knee ? TONSILLECTOMY HX ? CURRENT MEDICATIONS Current Outpatient Medications Medication Sig Dispense Refill ? norgestimate 0.25 mg-ethinyl estradiol 35 mcg (MONO-LINYAH) 0.25-35 mg-mcg per tablet TAKE 1 TABLET BY MOUTH ONCE DAILY FOR CONTINUOUS USE * SKIP PLACEBO PILLS FOR FOUR PACKS, TAKING ONLY ACTIVE PILLS 90 tablet 3 ? albuterol sulfate 90 mcg/actuation aebs Inhale as instructed. ? ? ? ondansetron orally disintegrating (ZOFRAN ODT) 4 mg disintegrating tablet Take 4 mg by mouth every 8 hours as needed. ? ? ? venlafaxine (EFFEXOR) 37.5 mg tablet Take 37.5 mg by mouth every other day. ? ? ? acetaminophen (TYLENOL) 325 mg cap Take by mouth. ? ? ? ibuprofen (MOTRIN) 200 mg tablet Take 200 mg by mouth every 6 hours as needed. ? ? ? fluconazole (DIFLUCAN) 150 mg tablet Take 1 tablet by mouth once daily. (Patient not taking: Reported on 08/02/2023) 3 tablet 0 ? No current facility-administered medications for this visit. ? ? ALLERGIES: Penicillins ? PERSONAL HISTORY: SOCIAL HISTORY Social History ? Tobacco Use ? Smoking status: Never ? Smokeless tobacco: Never Vaping Use ? Vaping Use: Never used Substance Use Topics ? Alcohol use: No ? Drug use: No ? FAMILY HISTORY: FAMILY HISTORY FAMILY HISTORY Problem Relation Age of Onset ? Hypertension Mother ? ? Cervical Cancer Maternal Grandmother 40 ? ? REVIEW OF SYMPTOMS: negative except as noted above PHYSICAL EXAMINATION: ? VITALS: Blood pressure 120/70, pulse 74, weight 181 lb (82.1 kg), last menstrual period 09/19/2023, SpO2 97%. ? GENERAL: The patient is well nourished, well hydrated in no acute distress. , The patient is oriented to time, place, and person. NECK: full range of motion LUNGS: Clear to auscultation bilaterally. no wheezes, rhonchi or rales HEART: Regular rate and rhythm, Normal heart sounds, and No murmurs or gallops GENITALIA: Normal external genitalia, Urethral meatus normal, perineum WNL, and groin /abscess/cyst noted on the left no surrounding cellulitis it is not flocculent at this time, no active drainage. ? IMPRESSION: 18yo with symptomatic bilateral labial hypertrophy, groin cyst ? PLAN: bilateral labiaplasty ? Pt has been counseled on risks/benefits and alternatives of surgery including but not limited to anesthesia, bleeding, infection, hematoma formation, post op pain. Injury to surrounding pelvic structures. Pt wishes to proceed with surgery at this time. ? Post op expectation and mgmt reviewed with patient- will order percocet day of surgery. Reviewed ice, sitz bath and restrictions. Pre op instructions reviewed. ? Groin cyst- warm compresses- does not need I&D at this time. ? I have reviewed and updated past medical and surgical history, medications and allergies ? I spent a total of 20 minutes on the date of the service which included preparing to see the patient, [id number] patient care, completing clinical documentation, obtaining and/or reviewing separately obtained history, performing a medically appropriate examination, and counseling and educating the patient/family/caregiver . Rosalia Ling MD ?1:27 PM Office Visit on 10/19/2023 Office Visit on 10/19/2023 Note shared with patient
[2023-10-28] VITALS (9 sets, daily range): BP systolic 96–118; BP diastolic 52–81; PULSE 55–84; RESP 16–18; TEMP 36.3–37.4; O2SAT 95–100; BMI 29.9
[2023-10-28 13:12] LABS: Hematocrit 41.4 % (37-47); Hemoglobin 13.2 g/dL (12.0-15.0); Mean Corp Hgb Conc 31.9 g/dL (32-36); Mean Corpuscular Hgb 28.6 pg (27.0-32.0); Mean Corpuscular Volume 89.8 fL (81-99); Mean Platelet Vol. 9.4 fl (6.2-12.0); Platelet Count 299 K/mm3 (150-450); RBC Distribution Width SD 42.5 fl (35.1-43.9); Red Blood Count 4.61 M/mm3 (4.2-5.4); White Blood Count 7.6 K/mm3 (4.4-11.0)
[2023-10-28 13:13] LABS: Internal QC Validated? YES +Cl - CLEAR BKGD; Pregnancy, Urine Negative Negative
--- NOTE | 2023-10-28 13:57 | DCINST_ITS ---
Discharge Instructions Diet Discharge Diet: No restrictions Activity Discharge Activity: May Shower May resume sexual activity in: 4 weeks Lifting Restrictions: 20lbs Additional Activity Instructions:: apply Ice and Pressure to area routinely during the day Dressing / Incision Call your doctor if your incision/area has: Continuous Slow Oozing, Sudden Inc reased Bleeding, Increased Pain/ Swelling, Increased Redness, Foul Smelling Discharge and Swelling at the incision site Call your doctor if you observe: Fever of 101 or Higher, Inability to urinate, Using more than 1 pad per hour and Uncontrolled pain Cleanse incision/area with: Soap & Water Follow Up Care Please Follow Up With: Rosalia Ling MD When: 2 weeks Test Results: Test results from this visit will be discussed in further detail at your follow- up appointment, if applicable. Discharge Plan Admission Attending Provider: Rosalia Ling Primary Care Provider: Vanessa Santos Discharge Orders/Prescriptions Prescriptions: New oxycodone-acetaminophen [Percocet] 2.5-325 mg tablet 1 tab PO Q6H PRN (Reason: pain) 3 Days Qty: 10 0RF ondansetron 4 mg tablet,disintegrating 4 mg PO Q8H Qty: 14 0RF Continued norgestimate-ethinyl estradiol 0.25-35 mg-mcg tablet 1 tablet PO DAILY ondansetron 4 mg tablet,disintegrating 4 mg PO Q8H PRN PRN (Reason: nausea and vomiting) Patient Comments: DISSOLVE 1 (ONE) TABLET on the tongue EVERY 8 HOURS NEEDED FOR NAUSEA venlafaxine 37.5 mg capsule,extended release 24hr 37.5 mg PO DAILY Patient Comments: Take 1 Capsule (37.5 mg) by mouth daily for 30 days albuterol sulfate [Ventolin HFA] 90 mcg/actuation HFA aerosol inhaler 1 - 2 puff inhalation Q4H PRN PRN (Reason: Wheezing) Qty: 1 0RF acetaminophen [Non-Aspirin] 325 mg tablet 325 mg PO Q6H PRN (Reason: pain) ibuprofen 600 mg tablet 600 mg PO Q6H PRN PRN (Reason: pain) Referrals / Follow Up: Vanessa Santos MD [Primary Care Provider] - Disposition Disposition (needs filled in before D/C Order can be placed): Home, Self Care
--- NOTE | 2023-10-28 14:00 | TISS_PTH ---
PATIENT: MESHA JIMENEZ [place]: [facility] [place][id number] AGE/SX: 18/F ROOM: RE10/28/[address]: Dr. Rosalia Rivas, MDDOB: 2005 BED: DIS: 10/28/2023 SPEC #: [id number] RECD: 10/28/23 15:32 STATUS: PHU ROCKY #: [id number] NOVA: 10/28/23 14:[address]: Rosalia Rivas DEPT: SURGICAL PATHOLOGY RECD BY: Funmilayo Almodovar ENTERED: 10/31/23 07:58 SP TYPE: Tissue Shabana NOLEN DR: Dr. Vanessa Santos MD Tissues: Labium, NOS Procedures: Surgery Specimen Level IV HEADER OPERATION: Labiaplasty PRE-OP DIAGNOSIS: Bilateral labial hypertrophy, groin cyst TISSUE SUBMITTED: Bilateral labia MICROSCOPIC DIAGNOSIS Bilateral labia, labiaplasty: Pieces of squamous mucosa with focal hyperkeratosis and parakeratosis. / 11/01/23 MICROSCOPIC DESCRIPTION Slides are reviewed. GROSS DESCRIPTION Received in fixative is one container labeled with the patient's name and designated Bilateral labia. The specimen consists of two pieces of rojas-white wrinkly skin measuring 3.0 x 2.0 x 1.0cm and 2.0 x 1.5 x 0.5cm. No skin lesion is identified. Crating And Moving Estimator sections are submitted in one cassette. GRICELDA/ 10/31/23 TC:5 CPT:60666
[2023-10-28] MEDS: Lidocaine 1% /Epi 1:100 (20ml) 20 ML Vial (14:20)
--- NOTE | 2023-10-28 14:41 | OP.PCM_ITS ---
Report of Operation Date of Procedure: 10/28/23 Pre-Operative Diagnosis: symptomatic labial hypertrophy Post-Operative Diagnosis: same Surgery/Procedure Performed:: Bilateral labiaplasy Description of Surgical Findings:: Asymmetric bilateral labial hypertrophy Surgeon: Rosalia Ling marketing technologist: jt lara [id number] Type of Anesthesia: Local and MAC Special Medications: 1% lidocaine with epi Specimen's removed: labia minora Estimated Blood Loss (mL): 10cc Fluids Replaced: 700 Description of Procedure: Pt was taken to the OR where MAC anesthesia was administered. pt was then placed in the [facility] stirrups. she was then prepped in normal sterile fashion. bladder drained at beginning of procedure. Sterile drapes placed. At this time 1%lidocaine with epinephrine [id number] was injected on bilateral labia minora. At this time bilateral labia were marked. Allis clamps used to grasp tissue. The labia were asymmetrial to start- Excess skin was then excised. The tissue will be sent to pathology for evaluation. at this time 3-0 rapide suture used to reapproximate bilateral labia minora edges in a running subcutaneous fashion, with a few interrupted sutures. Excellent hemostasis appreciated. Lap, needle and instrument count were correct x 2. Vaginal sweep negative. Grafts/Implants Used: none Procedure Start Time: 14:18 Procedure Stop Time: 14:40 Complications none Admit VTE Documentation VTE Present on Admission: Yes VTE Mechan Device Prophylaxis: SCD's VTE Pharm Prophylaxis ordered?: No Reason prophylaxis not ordered:: Procedure Not Indicated
== END 2023-10-28 17:22 | disposition home or self-care (01) ==
LOC: SDC 12:39 → AC 12:41
PROVIDERS: Anesthesiology; PCP Pediatrics; Referring Provider Obstetrics & Gynecology; Visit Provider Obstetrics & Gynecology
PROC: (CPT 56620; principal; 2023-10-28 13:45)
DX: N90.4 Leukoplakia of vulva (principal); R23.4 Changes in skin texture; J45.909 Unspecified asthma, uncomplicated; F41.9 Anxiety disorder, unspecified; F32.A Depression, unspecified; Z79.899 Other long term (current) drug therapy; Z79.82 Long term (current) use of aspirin
CPT/HCPCS: 56620; 00906; 81025; 85027; 88305; J2405

== ENCOUNTER 2023-12-09 01:42 | Emergency (ER) | payer MEDICAID, SELFPAY ==
[2023-12-09 01:43] VITALS: BP 131/80; PULSE 86; RESP 17; TEMP 36.5; O2SAT 98; BMI 31.3
[2023-12-09 01:45] VITALS: BP 131/80; PULSE 85; RESP 16; TEMP 36.5; O2SAT 97
--- NOTE | 2023-12-09 02:39 | EDS_ITS ---
HPI History of Present Illness Chief Complaint: Abscess Informant: patient and spouse/S.O. Narrative Narrative: Patient is a 18-year-old female with past medical history of asthma as well as long-term COVID. She states that in the left inguinal region she has had a mass/lump that has been present for approximately 2 months. She states that the area will increase in size and then spontaneously drain. She states that has been doing this recurrently. She denies any history of immunosuppression. She states that the area began to drain today but only a small amount and that there is also been increased pain associated with the mass today. She has concern for potential infection from it and therefore comes in for evaluation. [facility] Medical History (Updated 12/09/23 @ 04:[address] Kaiden Schreiber, DO) Constipation Non-smoker Shortness of breath on exertion History of echocardiogram Chest pain Depression Anxiety Nondisp fx proximal phalanx lesser toe left foot w/delayed healing Acute bronchitis, unspecified Chronic neck and back pain Asthma Severe headache Fatigue SOB (shortness of breath) Home Medications ?Medication ?Instructions ?Recorded ?Last Taken ?Type norgestimate 0.25 mg-ethinyl 1 tablet PO DAILY 11/11/20 Unknown History estradiol 35 mcg tablet albuterol sulfate 90 mcg/actuation 1 - 2 puff inhalation Q4H PRN PRN 07/30/23 Unknown Rx aerosol inhaler (Ventolin HFA) Wheezing ##1 ondansetron 4 mg disintegrating 4 mg PO Q8H PRN PRN nausea and 07/30/23 Unknown History tablet vomiting venlafaxine 37.5 mg 37.5 mg PO DAILY 07/30/23 Unknown History capsule,extended release 24 hr acetaminophen 325 mg tablet 325 mg PO Q6H PRN pain 10/17/23 Unknown History (Non-Aspirin) ibuprofen 600 mg tablet 600 mg PO Q6H PRN PRN pain 10/17/23 Unknown History clindamycin HCl 300 mg capsule 300 mg PO 4X/DAY 7 days #28 12/09/23 Unknown Rx (Cleocin HCl) CAPSULES oxycodone-acetaminophen 5 mg-325 1 tab PO Q6H PRN pain 3 days #12 12/09/23 Unknown Rx mg tablet (Percocet) tabs Allergy/AdvReac Type Severity Reaction Status Date / Time Penicillins Allergy Hives Verified 12/09/23 01:43 Surgical History (Updated 10/17/23 @ 13:21 by Rosalind Squires) History of laparoscopic cholecystectomy H/O wisdom tooth extraction H/O knee surgery History of foot surgery History of tonsillectomy and adenoidectomy Hx of excision of hemangioma Social History Smoking Status: Never smoker ROS ROS ED Constitutional Constitutional ED: Denies chills or fever(s) ENT ENT ED: Denies sore throat Cardiovascular Cardiovascular: Denies chest pain Respiratory/Chest Respiratory/Chest: Denies cough or dyspnea Gastrointestinal Gastrointestinal: Denies abdominal pain, diarrhea, nausea or vomiting Genitourinary Genitourinary ED: Denies dysuria or hematuria Musculoskeletal Musculoskeletal: Denies myalgias Integumentary Reports abscess Neurologic Neurologic: Denies headache(s) Hematologic/Lymphatic Hematologic/Lymphatic: Denies easy bleeding or easy bruising EXAM Physical Exam Const Vital Signs: 12/09/23 01:43 12/09/23 01:45 12/09/23 02:45 Temperature 97.7 F L 97.7 F L 97.1 F L Temperature Source Temporal Temporal Temporal Pulse Rate 86 85 65 Respiratory Rate 17 16 16 Blood Pressure 131/80 H 131/80 H 119/78 Blood Pressure Mean 97 97 91 Pulse Ox 98 97 98 Oxygen Delivery Method Room Air Room Air Room Air 12/09/23 02:53 Temperature 97.1 F L Temperature Source Pulse Rate 65 Respiratory Rate 16 Blood Pressure 119/68 Blood Pressure Mean 85 Pulse Ox 97 Oxygen Delivery Method Positive well nourished and well developed General Appearance ED: well developed HEENT HEENT Narrative: Normocephalic atraumatic Eyes PERRL and EOMs intact bilaterally Neck supple Resp normal respiratory effort and clear to auscultation bilaterally Cardio regular rate and regular rhythm Extremity normal to inspection Neuro oriented x3, CN's II-XII intact bilaterally and no sensory deficits noted Sensorium / Orientation: alert Motor Exam: strength 5/5 throughout Psych mental status grossly normal Skin Skin Narrative: In the left inguinal region there is a 1 x 2 cm area of induration and erythema. There is no lymphangitic streaking noted. The erythema is localized over top the area of induration and does not extend down to the soft tissues going against cellulitis. No crepitance is noted and there are no findings concerning for Ny's gangrene in the inguinal region. MDM MDM MDM Narrative Medical decision making narrative: Patient arrived to ER with stable vitals and reported this lesion has been present for 2 months. She states it would drain and shrink and then recur. She has no history of immunosuppression. Differential diagnosis is for cyst versus abscess versus inflamed or infected lymph node. Based on the fact that the area has been present for 2 months and will occasionally drain and then recur this is most likely a cystic structure. As there is overlying erythema there is concern it is infected at this time. However as she does not have vital sign derangement or streaking concern for systemic infection is low and I do not feel there is need for imaging or laboratory studies. Based on the patient's history of recurrence and now potential infection I did elect to perform an incision and drainage as documented below. Following this this patient has low risk for systemic infection from the mass she is otherwise safe for discharge Patient had the area cleaned with chlorhexidine. The area was anesthetized using 5 mL of 2% lidocaine with epinephrine and local fashion. A #11 blade was used to make a 1 cm incision over top the area of induration. A small amount of blood and purulent material was expressed. There is also sebaceous material expressed. Loculations were dissected with a needle ross. The wound was copiously irrigated with normal saline. Patient tolerated procedure well without complication. History & Record Review Discussion w/independent historian: Patient and Significant other Discharge Plan Triage Chief Complaint: Abscess ED Provider: Kaiden Schreiber Dx/Rx/DC Orders Clinical Impression: Sebaceous cyst, Asthma, [id number] syndrome manifesting as chronic cough Instructions: Epidermoid Cyst Infect Antibiotics Prescriptions: New clindamycin HCl [Cleocin HCl] 300 mg capsule 300 mg PO 4X/DAY 7 Days Qty: 28 0RF oxycodone-acetaminophen [Percocet] 5-325 mg tablet 1 tab PO Q6H PRN (Reason: pain) 3 Days Qty: 12 0RF No Action norgestimate-ethinyl estradiol 0.25-35 mg-mcg tablet 1 tablet PO DAILY ondansetron 4 mg tablet,disintegrating 4 mg PO Q8H PRN PRN (Reason: nausea and vomiting) Patient Comments: DISSOLVE 1 (ONE) TABLET on the tongue EVERY 8 HOURS NEEDED FOR NAUSEA venlafaxine 37.5 mg capsule,extended release 24hr 37.5 mg PO DAILY Patient Comments: Take 1 Capsule (37.5 mg) by mouth daily for 30 days albuterol sulfate [Ventolin HFA] 90 mcg/actuation HFA aerosol inhaler 1 - 2 puff inhalation Q4H PRN PRN (Reason: Wheezing) Qty: 1 0RF acetaminophen [Non-Aspirin] 325 mg tablet 325 mg PO Q6H PRN (Reason: pain) ibuprofen 600 mg tablet 600 mg PO Q6H PRN PRN (Reason: pain) Primary Care Provider: NOT,DEFINED Referrals: NOT,DEFINED [Primary Care Provider] - Activity Restrictions/Additional Instructions: Your history and exam is most consistent with a sebaceous cyst. There is concern it is developing infection and therefore take the antibiotics as directed. If the swelling returns you may need to see a chef de froid or a general surgeon to discuss complete excision. Please return to the ER should you have any further concerns Print Language: Georgian Disposition Disposition: Home, Self Care Discharge Date/Time: 12/09/23 02:56
[2023-12-09 02:45] VITALS: BP 119/78; PULSE 65; RESP 16; TEMP 36.2; O2SAT 98
[2023-12-09] MEDS: Clindamycin HCl 150 MG Capsule 300 MG PO (02:49)
[2023-12-09 02:53] VITALS: BP 119/68; PULSE 65; RESP 16; TEMP 36.2; O2SAT 97
== END 2023-12-09 02:56 | disposition home or self-care (01) ==
LOC: ED 02:52
PROVIDERS: Emergency Provider Emergency Medicine; Visit Provider Emergency Medicine
DX: L72.3 Sebaceous cyst (principal); J45.909 Unspecified asthma, uncomplicated; U09.9 Post COVID-19 condition, unspecified; F41.9 Anxiety disorder, unspecified; F32.A Depression, unspecified; Z79.899 Other long term (current) drug therapy; Z79.51 Long term (current) use of inhaled steroids
CPT/HCPCS: 99282

== ENCOUNTER 2024-07-05 03:56 | Emergency (ER) | payer MEDICAID, SELFPAY ==
[2024-07-05 03:56] VITALS: BP 137/81; PULSE 88; RESP 16; TEMP 36.4; O2SAT 100; BMI 32.1
--- NOTE | 2024-07-05 04:39 | EX.ED.DYSGE1 ---
HPI History of Present Illness Chief Complaint: Other, Pain/Inj Informant: patient Narrative Narrative: Patient is a 18-year-old female with past medical history of anxiety and depression. She states she was working at the [employer] where she has been for multiple month. She states this evening noting different when she was on a different/new wing of the facility. She states that she noticed there was some type of discoloration around her neck and it felt somewhat burning or stinging in nature. She states that she does not wear any new jewelry there has been no new exposures such as lotions or soaps. She states that she noticed did she is felt some mild shortness of breath and sore throat as well and therefore she presents to the hospital for evaluation [facility] Medical History (Updated 07/05/24 @ 22:[address] Kaiden Schreiber, ) Constipation Non-smoker Shortness of breath on exertion History of echocardiogram Chest pain Depression Anxiety Nondisp fx proximal phalanx lesser toe left foot w/delayed healing Acute bronchitis, unspecified Chronic neck and back pain Asthma Severe headache Fatigue SOB (shortness of breath) Home Medications ?Medication ?Instructions ?Recorded ?Last Taken ?Type norgestimate 0.25 mg-ethinyl 1 tablet PO DAILY 11/11/20 Unknown History estradiol 35 mcg tablet albuterol sulfate 90 mcg/actuation 1 - 2 puff inhalation Q4H PRN PRN 07/30/23 Unknown Rx aerosol inhaler (Ventolin HFA) Wheezing ##1 acetaminophen 325 mg tablet 325 mg PO Q6H PRN pain 10/17/23 Unknown History (Non-Aspirin) ibuprofen 600 mg tablet 600 mg PO Q6H PRN PRN pain 10/17/23 Unknown History Lactobacillus acidophilus 10 100 mmu cells PO DAILY 07/05/24 Unknown History billion cell capsule (NewFlora) ondansetron 4 mg disintegrating 4 mg PO Q8 PRN nausea 07/05/24 Unknown History tablet Allergy/AdvReac Type Severity Reaction Status Date / Time Penicillins Allergy Hives Verified 07/05/24 03:56 Surgical History History of laparoscopic cholecystectomy H/O wisdom tooth extraction H/O knee surgery History of foot surgery History of tonsillectomy and adenoidectomy Hx of excision of hemangioma Social History Smoking Status: Never smoker ROS ROS ED Constitutional Constitutional ED: Denies chills or fever(s) Eyes Eyes: Denies blurry vision or change in vision ENT ENT ED: Reports sore throat Cardiovascular Cardiovascular: Denies chest pain Respiratory/Chest Respiratory/Chest: Reports dyspnea; Denies cough Gastrointestinal Gastrointestinal: Denies abdominal pain, diarrhea, nausea or vomiting Genitourinary Genitourinary ED: Denies dysuria Musculoskeletal Musculoskeletal: Denies myalgias Integumentary Reports rash Neurologic Neurologic: Denies headache(s) Hematologic/Lymphatic Hematologic/Lymphatic: Denies easy bleeding or easy bruising Allergic/Immunologic Allergic/Immunologic ED: Denies mouth swelling or tongue swelling EXAM Physical Exam Const Vital Signs: 07/05/24 03:56 07/05/24 04:47 Temperature 97.5 F L 97.5 F L Temperature Source Oral Pulse Rate 88 88 Respiratory Rate 16 16 Blood Pressure 137/81 H 137/81 H Blood Pressure Mean 99 99 Pulse Ox 100 100 Positive well nourished and well developed General Appearance ED: well developed HEENT Reports moist mucous membranes HEENT Narrative: No tongue or lip swelling no oral lesions no airway edema or compromise No findings in the posterior pharynx to suggest infection Eyes PERRL and EOMs intact bilaterally General Eye ED: Negative for scleral icterus Neck supple Neck Narrative: Patient has a brownish discoloration along the anterior aspect of the neck that extends both to the left and right surfaces No urticaria no vesicular postural changes no obvious erythema or warmth No crepitance or subcutaneous emphysema noted Resp normal respiratory effort and clear to auscultation bilaterally Cardio regular rate and regular rhythm Extremity normal to inspection Neuro oriented x3, CN's II-XII intact bilaterally and no sensory deficits noted Sensorium / Orientation: alert Motor Exam: strength 5/5 throughout Psych Mood & Affect: anxious Skin Skin Narrative: Patient has a brownish discoloration to the neck as documented above Otherwise no urticaria or rashes or discoloration noted MDM MDM MDM Narrative Medical decision making narrative: Patient arrived to the ER with stable vitals she did not have tongue or lip swelling no oral lesions there is no signs of anaphylaxis or posterior pharynx infection. The discoloration on the anterior aspect of the neck was brownish in color indicating potential chemical exposure or air particulate matter and landing on the skin surface. Without erythema or warmth I have low concern for cellulitis or abscess there is no subcutaneous emphysema going against a potential airway rupture the patient did not had bouts of nausea or vomiting going against a Boerhaave syndrome or Camille-Hebert tear. As diabetes runs in her family and diabetes can cause skin discoloration Accu-Chek was performed which is normal at 73. An alcohol swab was used and rubbed over top the anterior aspect the neck and the brown discoloration removed. This indicates that this was most likely air particulate matter that lying on the skin surface leading to discoloration. As she does not have signs of angioedema or acute allergic reaction or infectious process and the skin discoloration can be removed with cleaning I do not feel there is need for further workup and she is otherwise safe for discharge History & Record Review Discussion w/independent historian: Patient and Family Lab Data Attestation: I reviewed the patient's lab results. Labs: Laboratory Results - last 24 hr 07/05/24 04:30 POC Glucose 73 L Discharge Plan Triage Chief Complaint: Other, Pain/Inj ED Provider: Kaiden Schreiber Dx/Rx/DC Orders Clinical Impression: Agent affecting skin causing adverse effect, Anxiety Instructions: ED Drug Reaction, Other Prescriptions: No Action norgestimate-ethinyl estradiol 0.25-35 mg-mcg tablet 1 tablet PO DAILY albuterol sulfate [Ventolin HFA] 90 mcg/actuation HFA aerosol inhaler 1 - 2 puff inhalation Q4H PRN PRN (Reason: Wheezing) Qty: 1 0RF acetaminophen [Non-Aspirin] 325 mg tablet 325 mg PO Q6H PRN (Reason: pain) ibuprofen 600 mg tablet 600 mg PO Q6H PRN PRN (Reason: pain) ondansetron 4 mg tablet,disintegrating 4 mg PO Q8 PRN (Reason: nausea) NewFlora 10 billion cell capsule 100 mmu cells PO DAILY Stand Alone Forms: ED Work / School Excuse Primary Care Provider: VERONIKA FARLEY Referrals: VERONIKA FARLEY [Other] Activity Restrictions/Additional Instructions: Your exam and history today would indicate there was a airborne particle creating irritation to your skin. Please go home and shower and wash the irritant off and take allergy medication as needed. If you have any further concerns or worsening of symptoms please return to the ER for repeat evaluation Print Language: Romanian Disposition Disposition: Home, Self Care Discharge Date/Time: 07/05/24 04:48
[2024-07-05 04:47] VITALS: BP 137/81; PULSE 88; RESP 16; TEMP 36.4; O2SAT 100
[2024-07-05 04:48] LABS: Bedside Glucose 73 mg/dL (74-106)
== END 2024-07-05 04:48 | disposition home or self-care (01) ==
PROVIDERS: Emergency Provider Emergency Medicine; Visit Provider Emergency Medicine
DX: R23.8 Other skin changes (principal); J02.9 Acute pharyngitis, unspecified; R06.02 Shortness of breath; T49.95XA Adverse effect of unspecified topical agent, initial encounter; F41.9 Anxiety disorder, unspecified; F32.A Depression, unspecified; Z88.0 Allergy status to penicillin; Z83.3 Family history of diabetes mellitus
CPT/HCPCS: 82962; 99282

== ENCOUNTER → 2024-07-06 | Outpatient (CLI) | payer MEDICAID, SELFPAY | END | disposition home or self-care (01) | PROVIDERS: Referring Provider Physician Assistant Surgical; Visit Provider Physician Assistant Surgical | DX: N76.0 Acute vaginitis (principal) | CPT/HCPCS: 87086; 87088; 87591 ==